=== PATIENT | male | born 1965 | race Caucasian/White ===

== ENCOUNTER 2016-05-31 19:33 | Inpatient (IN) | payer MEDICAID, OTHER ==
[~2016-05-31] VITALS: Ht 177.8 cm; Wt 93.0 kg
[~2016-05-31 19:33] MED LIST: RISP1 PO; TRAZ100T4 PO; VENL75XR PO
[2016-05-31 19:35] VITALS: BP 156/89; PULSE 95; RESP 18; TEMP 98.2; O2SAT 97
--- NOTE | 2016-05-31 19:37 | PD ---
Physical Exam Date Seen by Provider: May 31, 2016 Time Seen by Provider: 19:36 Data Data Last Documented VS Vital Signs Date Time Temp Pulse Resp B/P Pulse Ox O2 Delivery O2 Flow Rate FiO2 05/31/16 19:35 98.2 95 18 156/89 97 Room Air [facility] Medical Record Reviewed: Yes Supervised Visit with ROSSY: Yes Daryl Rm May 31, 2016 19:37 Supervised Visit with ROSSY: Yes Daryl Rm May 31, 2016 19:37
--- NOTE | 2016-05-31 20:24 | PD ---
Physical Exam Date Seen by Provider: May 31, 2016 Time Seen by Provider: 20:20 Narrative 51 YOWM C/O OFF PSYCH MEDS FOR 5 DAYS D/C FOR HOSP IN AUGUST NO SI OR HI. REQUESTING EVAL VSS AWAITING BED PLACEMENT Data Data Last Documented VS Vital Signs Date Time Temp Pulse Resp B/P Pulse Ox O2 Delivery O2 Flow Rate FiO2 05/31/16 19:35 98.2 95 18 156/89 97 Room Air [facility] Medical Record Reviewed: Yes Supervised Visit with ROSSY: Yes Daryl Rm May 31, 2016 20:24
[2016-05-31] MEDS ORDERED: VENL75XR PO (21:25)
[2016-05-31] MEDS ORDERED: TRAZ300T2 PO (21:25)
[2016-05-31] MEDS ORDERED: RISP2TAB37 (21:25)
--- NOTE | 2016-05-31 21:40 | PD ---
HPI Chief Complaint: Psychiatric Symptoms Time Seen by Provider: 21:28 Travel History International Travel<30 days: No Contact w/Intl Traveler<30days: No Traveled to known affect area: No History of Present Illness HPI The patient is a 51-year-old male who presents emergency department for psychiatric evaluation. The patient has a history of depression and anxiety , takes multiple medications including Effexor, Risperdal, and trazodone. The patient states he stopped taking his medications 5 days ago because he ran out of his medications and was unable to afford his medications at that time. The patient is followed at [facility] for psychiatric conditions. The patient does have a history of auditory hallucinations in the past, denies any current auditory or visual hallucinations. The patient denies any current suicidal or homicidal ideation. The patient is requesting psychiatric evaluation to see if he can be admitted for his psychiatric disorders and be placed on his medications. He denies alcohol or illicit drug use. PFSH Past Medical History Anxiety: Yes Depression: Yes Heart Rhythm Problems: No Cardiac Catheterization: No High Cholesterol: No Congestive Heart Failure: No Diminished Hearing: No Endocrine: No Genitourinary: No Hypertension: No Immune Disorder: No Musculoskeletal: No Neurologic: No Psychiatric: Yes Reproductive: No Respiratory: No Immunizations Current: Yes Myocardial Infarction: No Past Surgical History Narrative Surgical Tonsillectomy Abdominal Surgery: No Cardiac Surgery: No Coronary Artery Bypass Graft: No Ear Surgery: No Endocrine Surgery: No Eye Surgery: No Genitourinary Surgery: No Oral Surgery: No Tonsillectomy: Yes Social History Alcohol Use: No Tobacco Use: Yes (1 ppd) Substance Use: Yes (MJ) Allergies-Medications (Allergen,Severity, Reaction): Coded Allergies: No Known Allergies (Verified , 05/31/16) Reported Meds & Prescriptions Reported Meds & Active Scripts Active Effexor-Xr (Venlafaxine HCl) 75 Mg Caper 75 Mg PO DAILY 15 Days Desyrel 100 Mg Tab (Trazodone Hcl) 100 Mg Tab 400 Mg PO HS 15 Days Risperdal (Risperidone) 1 Mg Tab 2 Mg PO BID 15 Days Reported Trazodone (Trazodone HCl) 300 Mg Tab 400 Mg PO HS Risperdal (Risperidone) 2 Mg Tab 2 Mg PO Q12HR Effexor XR 24 HR (Venlafaxine HCl) 75 Mg Cap 150 Mg PO DAILY Review of Systems Except as stated in HPI: all other systems reviewed are Neg General / Constitutional: No: Fever HENT: No: Lightheadedness Cardiovascular: No: Chest Pain or Discomfort Respiratory: No: Shortness of Breath Gastrointestinal: No: Nausea, Vomiting, Abdominal Pain Musculoskeletal: No: Weakness Psychiatric: Positive: Anxiety, Depression, Disorder of Thought, No: Suicidal Ideations, Substance Abuse, Homicidal Ideation Physical Exam Narrative GENERAL: Awake, alert, pleasant 51-year-old male who appears his stated age and is in no acute respiratory distress. SKIN: Focused skin assessment warm/dry. HEAD: Atraumatic. Normocephalic. EYES: Pupils equal and round. 4 molars bilateral and reactive. EOMs are intact. ENT: No nasal bleeding or discharge. Mucous membranes pink and moist. NECK: Trachea midline. No JVD. CARDIOVASCULAR: Regular rate and rhythm. No murmur appreciated. RESPIRATORY: No accessory muscle use. Clear to auscultation. Breath sounds equal bilaterally. MUSCULOSKELETAL: No obvious deformities. No clubbing. No cyanosis. No edema. NEUROLOGICAL: Awake and alert. No obvious cranial nerve deficits. Motor grossly within normal limits. Normal speech. Alert and oriented 4. PSYCHIATRIC: Appears slightly anxious. Insight and judgment appear normal. Data Data Last Documented VS Vital Signs Date Time Temp Pulse Resp B/P Pulse Ox O2 Delivery O2 Flow Rate FiO2 05/31/16 21:56 79 14 146/91 96 Room Air 05/31/16 19:35 98.2 Orders Complete Blood Count With Diff (05/31/16 21:28) Comprehensive Metabolic Panel (05/31/16 21:28) Psych Screen (05/31/16 21:28) Drug Screen, Random Urine (05/31/16 21:28) Labs Laboratory Tests Test 05/31/16 05/31/16 21:50 22:06 Sodium Level 142 MEQ/L Potassium Level 3.9 MEQ/L Chloride Level 106 MEQ/L Carbon Dioxide Level 29.0 MEQ/L Anion Gap 7 MEQ/L Blood Urea Nitrogen 9 MG/DL Creatinine 1.05 MG/DL Estimat Glomerular Filtration 75 ML/MIN Rate Random Glucose 94 MG/DL Calcium Level 8.9 MG/DL Total Bilirubin 0.3 MG/DL Aspartate Amino Transf 20 U/L (AST/SGOT) Alanine Aminotransferase 55 U/L (ALT/SGPT) Alkaline Phosphatase 81 U/L Total Protein 6.9 GM/DL Albumin 3.9 GM/DL Urine Opiates Screen NEG Urine Barbiturates Screen NEG Urine Amphetamines Screen NEG Urine Benzodiazepines Screen POS Urine Cocaine Screen NEG Urine Cannabinoids Screen POS White Blood Count 9.6 TH/MM3 Red Blood Count 5.05 MIL/MM3 Hemoglobin 15.8 GM/DL Hematocrit 44.1 % Mean Corpuscular Volume 87.3 FL Mean Corpuscular Hemoglobin 31.2 PG Mean Corpuscular Hemoglobin 35.8 % Concent Red Cell Distribution Width 12.9 % Platelet Count 143 TH/MM3 Mean Platelet Volume 8.0 FL Neutrophils (%) (Auto) 59.9 % Lymphocytes (%) (Auto) 31.2 % Monocytes (%) (Auto) 6.9 % Eosinophils (%) (Auto) 1.5 % Basophils (%) (Auto) 0.5 % Neutrophils # (Auto) 5.7 TH/MM3 Lymphocytes # (Auto) 3.0 TH/MM3 Monocytes # (Auto) 0.7 TH/MM3 Eosinophils # (Auto) 0.1 TH/MM3 Basophils # (Auto) 0.1 TH/MM3 CBC Comment DIFF FINAL Differential Comment MDM Medical Decision Making Medical Screen Exam Complete: Yes Emergency Medical Condition: Yes Medical Record Reviewed: Yes Interpretation(s) Laboratory Tests Test 05/31/16 05/31/16 21:50 22:06 Sodium Level 142 MEQ/L Potassium Level 3.9 MEQ/L Chloride Level 106 MEQ/L Carbon Dioxide Level 29.0 MEQ/L Anion Gap 7 MEQ/L Blood Urea Nitrogen 9 MG/DL Creatinine 1.05 MG/DL Estimat Glomerular Filtration 75 ML/MIN Rate Random Glucose 94 MG/DL Calcium Level 8.9 MG/DL Total Bilirubin 0.3 MG/DL Aspartate Amino Transf 20 U/L (AST/SGOT) Alanine Aminotransferase 55 U/L (ALT/SGPT) Alkaline Phosphatase 81 U/L Total Protein 6.9 GM/DL Albumin 3.9 GM/DL Urine Opiates Screen NEG Urine Barbiturates Screen NEG Urine Amphetamines Screen NEG Urine Benzodiazepines Screen POS Urine Cocaine Screen NEG Urine Cannabinoids Screen POS White Blood Count 9.6 TH/MM3 Red Blood Count 5.05 MIL/MM3 Hemoglobin 15.8 GM/DL Hematocrit 44.1 % Mean Corpuscular Volume 87.3 FL Mean Corpuscular Hemoglobin 31.2 PG Mean Corpuscular Hemoglobin 35.8 % Concent Red Cell Distribution Width 12.9 % Platelet Count 143 TH/MM3 Mean Platelet Volume 8.0 FL Neutrophils (%) (Auto) 59.9 % Lymphocytes (%) (Auto) 31.2 % Monocytes (%) (Auto) 6.9 % Eosinophils (%) (Auto) 1.5 % Basophils (%) (Auto) 0.5 % Neutrophils # (Auto) 5.7 TH/MM3 Lymphocytes # (Auto) 3.0 TH/MM3 Monocytes # (Auto) 0.7 TH/MM3 Eosinophils # (Auto) 0.1 TH/MM3 Basophils # (Auto) 0.1 TH/MM3 CBC Comment DIFF FINAL Differential Comment Differential Diagnosis Differential diagnosis includes schizoaffective disorder, bipolar affective disorder, mood disorder, depression, anxiety, noncompliance. Narrative Course Labs were drawn and sent. Psychiatric evaluation was ordered. Labs are unremarkable. The patient is medically clear to be evaluated by psychiatry. Disposition as per psych. Diagnosis Primary Impression: Major depressive disorder Qualified Code: F33.9 - Recurrent major depressive disorder, remission status unspecified Condition: Stable Harrison Chapin MD May 31, 2016 21:40
[2016-05-31 21:56] VITALS: BP 146/91; PULSE 79; RESP 14; O2SAT 96
[2016-05-31 22:19] LABS: AMPHETAMINE, URINE NEG (NEG); BARBITURATES, URINE NEG (NEG); COCAINE, URINE NEG (NEG)
[2016-05-31 22:33] LABS: AUTOMATED NEUTROPHIL # 5.7 TH/MM3 (1.8-7.7); BASOPHIL # 0.1 TH/MM3 (0-0.2); BASOPHIL % 0.5 % (0.0-2.0); EOSINOPHIL # 0.1 TH/MM3 (0-0.4); EOSINOPHIL % 1.5 % (0.0-4.0); HEMATOCRIT 44.1 % (39.0-51.0); HEMO FLAGS DIFF FINAL; LYMPH % 31.2 % (9.0-44.0); MEAN CELL VOLUME 87.3 FL (80.0-100.0); MEAN CORPUSCULAR HEMOGLOBIN 31.2 PG (27.0-34.0); MEAN CORPUSCULAR HGB CONC 35.8 % (32.0-36.0); MONO % 6.9 % (0.0-8.0); NEUT % 59.9 % (16.0-70.0); PLATELET COUNT 143 TH/MM3 (150-450); RED BLOOD COUNT 5.05 MIL/MM3 (4.50-5.90); RED CELL DISTRIBUTION WIDTH 12.9 % (11.6-17.2); WHITE BLOOD COUNT 9.6 TH/MM3 (4.0-11.0)
[2016-05-31 22:38] LABS: ANION GAP 7 MEQ/L (5-15); AST (GOT) 20 U/L (15-37); BLOOD UREA NITROGEN 9 MG/DL (7-18); CHLORIDE 106 MEQ/L (98-107); GLOMERULAR FILTRATION RATE 75 ML/MIN (>89); POTASSIUM 3.9 MEQ/L (3.5-5.1); SODIUM (NA) 142 MEQ/L (136-145)
[2016-05-31 22:42] LABS: ALKALINE PHOSPHATASE 81 U/L (45-117); ALT (GPT) 55 U/L (12-78); TOTAL BILIRUBIN ADULT 0.3 MG/DL (0.2-1.0)
[2016-06-01 06:00] VITALS: BP 137/90; PULSE 73; RESP 17; O2SAT 95
[2016-06-01] MEDS ORDERED: ALUMINUM/MAGNESIUM/SIMETH 30 ML CUP PO PRN (11:15)
[2016-06-01] MEDS ORDERED: LORazepam 2 MG/ML VIAL IM PRN (11:15)
[2016-06-01] MEDS ORDERED: ACETAMINOPHEN 325 MG TAB PO PRN (11:15)
[2016-06-01] MEDS ORDERED: MAGNESIUM HYDROXIDE SUSP 30 ML CUP PO PRN (11:15)
--- NOTE | 2016-06-01 11:26 | HHI.HP ---
Provisional Diagnosis Admission Date [place] I. Schizophrenia, chronic paranoid type Certification of Person's Competence To Provide Express and Informed Consent I have personally examined Josh Caldera , a person being served at [facility] on, Jun 01, 2016 11:14. Express and informed consent means consent voluntarily given in writing, by a competent person, after sufficient explanation and disclosure of the subject matter involved to enable the person to make a knowing and willful decision without any element of force, fraud, deceit, duress, or other form of constraint or coercion. This person is 18 years of age or older, is not now known to be incompetent to consent to treatment with a guardian advocate, and does not have a health care surrogate or proxy currently making medical treatment decisions. I have found this person to be one of the following: [Yes] Competent to provide express and informed consent, as defined above, for voluntary admission to this facility and is competent to provide express and informed consent for treatment. He/she has the consistent capacity to make well reasoned, willful, and knowing decisions concerning his or her medical or mental health treatment. The person fully and consistently understands the purpose of the admission for examination/placement and is fully capable of personally exercising all rights [place] Incompetent to provide express and informed consent to voluntary admission, and this is incompetent to provide express and informed consent to treatment. The person must be transferred to involuntary status and a petition for a guardian advocate filed with the Circuit Court. [] Refusing to provide express and informed consent to voluntary admission but is competent to provide express and informed consent for treatment. The person must be discharged or transferred to involuntary status. Form shall be completed within 24 hours of a person's arrival at the receiving facility and filed in the clinical record of each person: 1. Admitted on a voluntary basis 2. Permitted to provide express and informed consent to his/her own treatment 3. Allowed to transfer from involuntary to voluntary status 4. Prior to permitting a person to consent to his or her own treatment after having been previously found incompetent to consent to treatment. History of Present Illness Capacity: Has Capacity HPI This is a 51-year-old male with a approximately 20 year history of schizophrenia , chronic paranoid type. He presents to the emergency Department voluntarily because he has hearing disturbing voices in his head and experiencing increasing paranoid delusions. This has been going on for the last 2 weeks. The patient attempted to go to [facility] but they were unable to see him. He describes voices in his head throughout the day which make up a running commentary of his activities and speak to him in a derogatory fashion. The voices also tell him "they" are coming to get him and that he will be in some fashion punished. He is aware of the these are hallucinations but he has unable to resist them any longer and he is afraid he will do something to harm himself. Additionally, he describes delusional thinking, that others can read his mind and these voices know precisely what is going on in his mind, including his thoughts, activities, etc. At this time the patient is depressed with suicidal ideation because of his ongoing psychosis. He has attempted to harm himself in the past and knows he can overdose on his medications, cut himself or walk into traffic. He states he has been compliant with his medications as prescribed by [facility]. However, he feels the medicines are not working adequately and he needs to be evaluated for medication adjustment and further treatment. As the patient has his own home which she pays for with Social Security disability income, and he does not consume alcohol or drugs, this physician feels the patient has not being manipulative. Review of Systems ROS Limitations: Clinical Condition Except as stated in HPI: all other systems reviewed are Neg Past Psych History Psychological trauma history Denies Violence risk - others (6 mos) Minimal Violence risk - self (6 mos) Moderate to severe. Substance Abuse History Drugs/Alcohol past 12 months Denies Past Family Social History Coded Allergies: No Known Allergies (Verified , 05/31/16) Reported Medications Trazodone 300 Mg [id number] Mg PO HS 05/31/16 Risperidone (Risperdal)2 Mg Tab2 Mg PO Q12HR 05/31/16 Venlafaxine ER 24 HR (Effexor XR 24 HR)75 Mg [id number] Mg PO DAILY 05/31/16 Discontinued Scripts Venlafaxine Hcl (Effexor-Xr)75 Mg Caper75 Mg PO DAILY 15 Days Ref 1 Prov:Shailesh England MD 09/15/15 Trazodone Hcl (Desyrel 100 Mg Tab)100 Mg [id number] Mg PO HS 15 Days Ref 1 Prov:Shailesh England MD 09/15/15 Risperidone (Risperdal)1 Mg Tab2 Mg PO BID 15 Days Ref 1 Prov:Shailesh England MD 09/15/15 Patient states he has been compliant with his Effexor, Risperdal and trazodone. However he is unable to sleep and medicines are not working adequately. Family History Positive for psychotic illness. Social History Patient is unemployed. He is not . He has very limited social support. He does not consume alcohol or drugs. He has no children. Patient's Strengths (min. 2) Verbal with good insight. Physical Exam GENERAL: SKIN: Warm and dry. HEAD: Normocephalic. EYES: No scleral icterus. No injection or drainage. NECK: Supple, trachea midline. No JVD or lymphadenopathy. CARDIOVASCULAR: Regular rate and rhythm without murmurs, gallops, or rubs. RESPIRATORY: Breath sounds equal bilaterally. No accessory muscle use. GASTROINTESTINAL: Abdomen soft, non-tender, nondistended. MUSCULOSKELETAL: No cyanosis, or edema. BACK: Nontender without obvious deformity. No CVA tenderness. Vital Signs Vital Signs Date Time Temp Pulse Resp B/P Pulse Ox O2 Delivery O2 Flow Rate FiO2 06/01/16 06:00 73 17 137/90 95 Room Air 05/31/16 19:35 98.2 Mental Status Examination Speech: Unremarkable Orientation: x3 Memory: Unremarkable Thought Process: Organized, Goal Directed Thought Content: Paranoid Hallucination Type: Auditory Attention and Concentration: Abnormal Suicidal Ideation: Yes Previous Suicide Attempts: Yes Homicidal Ideation: No Previous Homicide Attempts: No Insight: Fair Judgement: WNL Affect: Anxious, Sad Affect if Inappropriate: Blunt Mood: Sad Motor Activity: Normal gait Assessment & Plan Problem List: (1) Schizophrenia, paranoid, chronic with acute exacerbation ICD Code: F20.0 Assessment & Plan Estimated LOS: 7 days patient presents as acutely psychotic with auditory hallucinations and paranoid delusions. He has a significant risk for self-harm at this point due to the voices and delusional thinking being very bothersome to him and his medications not working. Additionally, the patient's inability to be seen at [facility] has obviously caused him frustration and left him feeling desperate and hopeless. He has ongoing suicidal ideation with plans to harm himself and this physician does not find him to be manipulative. He will be placed on his current medications for the time being but these will be reevaluated on the inpatient service. We will also obtain laboratory studies including vitamin D, vitamin B-12, and obtain thyroid studies and EKG. Patient is of an age where vitamin abnormalities were cardiac conditions may come into play regarding his cognition and ability to tolerate medicines at currently high doses. Clayton Nath MD Jun 01, 2016 11:26
[2016-06-01 14:00] VITALS: BP 123/86; PULSE 83; RESP 18; TEMP 98.2; O2SAT 95
[2016-06-01 18:12] VITALS: BP 146/87; PULSE 107; RESP 18; TEMP 98.5; O2SAT 96
[2016-06-01] MEDS: LORazepam 1 MG TAB PO PRN (21:01)
[2016-06-02 06:12] VITALS: BP 108/64; PULSE 73; RESP 17; TEMP 97.6; O2SAT 98
[2016-06-02 08:09] LABS: AUTOMATED NEUTROPHIL # 6.2 TH/MM3 (1.8-7.7); BASOPHIL # 0.1 TH/MM3 (0-0.2); BASOPHIL % 0.9 % (0.0-2.0); EOSINOPHIL # 0.1 TH/MM3 (0-0.4); EOSINOPHIL % 0.9 % (0.0-4.0); HEMATOCRIT 47.1 % (39.0-51.0); HEMO FLAGS DIFF FINAL; LYMPH % 26.4 % (9.0-44.0); LYMPHOCYTE # 2.6 TH/MM3 (1.0-4.8); MEAN CELL VOLUME 87.5 FL (80.0-100.0); MEAN CORPUSCULAR HEMOGLOBIN 31.1 PG (27.0-34.0); MEAN CORPUSCULAR HGB CONC 35.5 % (32.0-36.0); MONO % 8.3 % (0.0-8.0); NEUT % 63.5 % (16.0-70.0); PLATELET COUNT 138 TH/MM3 (150-450); RED BLOOD COUNT 5.38 MIL/MM3 (4.50-5.90); RED CELL DISTRIBUTION WIDTH 12.8 % (11.6-17.2); WHITE BLOOD COUNT 9.8 TH/MM3 (4.0-11.0)
[2016-06-02 08:39] LABS: ANION GAP 6 MEQ/L (5-15); AST (GOT) 16 U/L (15-37); BICARBONATE 27.8 MEQ/L (21.0-32.0); BLOOD UREA NITROGEN 13 MG/DL (7-18); CHLORIDE 106 MEQ/L (98-107); GLOMERULAR FILTRATION RATE 85 ML/MIN (>89); POTASSIUM 3.8 MEQ/L (3.5-5.1); SODIUM (NA) 140 MEQ/L (136-145)
[2016-06-02 09:07] LABS: ALKALINE PHOSPHATASE 76 U/L (45-117); ALT (GPT) 51 U/L (12-78); HDL CHOLESTEROL 23.7 MG/DL (40.0-60.0); LDL CHOLESTEROL 93 MG/DL (0-99); TOTAL BILIRUBIN ADULT 0.5 MG/DL (0.2-1.0)
--- NOTE | 2016-06-02 13:34 | HHI.PYPN ---
Subjective Remarks Continues to report auditory hallucinations which frighten him. He is afraid that he will as a result of his hallucinations. He is quite anxious and feels his medicine is not working. Apparently he has been getting sicker for the last 5 days. This physician recommends and will prescribe Abilify instead of Risperdal. Review of Systems ROS Limitations: Clinical Condition Except as stated in HPI: all other systems reviewed are Neg Objective Alert: Yes [place]: Person, Place, Date, Situation Mood: Calm Affect: Euthymic Memory Intact: Immediate, Recent, Remote Hallucinations: Auditory Delusions: Yes Delusion Type: Paranoid Suicidal: Ideation Homicidal: Ideation Insight/Judgement Impaired but patient willing to receive help. Labs Test 06/02/16 06:35 White Blood Count 9.8 TH/MM3 Red Blood Count 5.38 MIL/MM3 Hemoglobin 16.7 GM/DL Hematocrit 47.1 % Mean Corpuscular Volume 87.5 FL Mean Corpuscular Hemoglobin 31.1 PG Mean Corpuscular Hemoglobin 35.5 % Concent Red Cell Distribution Width 12.8 % Platelet Count 138 TH/MM3 Mean Platelet Volume 8.3 FL Neutrophils (%) (Auto) 63.5 % Lymphocytes (%) (Auto) 26.4 % Monocytes (%) (Auto) 8.3 % Eosinophils (%) (Auto) 0.9 % Basophils (%) (Auto) 0.9 % Neutrophils # (Auto) 6.2 TH/MM3 Lymphocytes # (Auto) 2.6 TH/MM3 Monocytes # (Auto) 0.8 TH/MM3 Eosinophils # (Auto) 0.1 TH/MM3 Basophils # (Auto) 0.1 TH/MM3 CBC Comment DIFF FINAL Differential Comment Sodium Level 140 MEQ/L Potassium Level 3.8 MEQ/L Chloride Level 106 MEQ/L Carbon Dioxide Level 27.8 MEQ/L Anion Gap 6 MEQ/L Blood Urea Nitrogen 13 MG/DL Creatinine 0.94 MG/DL Estimat Glomerular Filtration 85 ML/MIN Rate Random Glucose 85 MG/DL Calcium Level 8.8 MG/DL Total Bilirubin 0.5 MG/DL Aspartate Amino Transf 16 U/L (AST/SGOT) Alanine Aminotransferase 51 U/L (ALT/SGPT) Alkaline Phosphatase 76 U/L Total Protein 6.9 GM/DL Albumin 3.8 GM/DL Triglycerides Level 172 MG/DL Cholesterol Level 151 MG/DL LDL Cholesterol 93 MG/DL HDL Cholesterol 23.7 MG/DL Cholesterol/HDL Ratio 6.37 RATIO Vitamin B12 Level 281 PG/ML 25-Hydroxy Vitamin D Total 29.1 ng/ML Thyroid Stimulating Hormone 1.120 uIU/ML 3rd Gen Vitals/IOs Vital Signs Date Time Temp Pulse Resp B/P Pulse Ox O2 Delivery O2 Flow Rate FiO2 06/02/16 06:12 97.6 73 17 108/64 98 06/01/16 06:00 Room Air Intake and Output 06/01/16 06/01/16 06/02/16 08:00 16:00 00:00 Intake Total 360 ml Balance 360 ml Assessment & Plan Problem List: (1) Schizophrenia, paranoid, chronic with acute exacerbation ICD Code: F20.0 Assessment & Plan Estimated LOS: 5 days because the patient's Risperdal is not working and he would like to change in medication, this physician will try Abilify 5 mg by mouth daily at bedtime. If this medicine is well tolerated, the patient may be a candidate for long-acting Abilify injectables. In the meantime, he will be continued on his current doses of Effexor and trazodone. Justification for Cont. Inpt. Psychotic, delusional and unable to care for himself. Patient is afraid of dying and experiences frequent auditory hallucinations of a command nature. Clayton Nath MD Jun 02, 2016 13:34
[2016-06-02] MEDS: VENLAFAXINE HCL XR 75 MG CAP PO SCH (17:30)
[2016-06-02] MEDS: LORazepam 1 MG TAB PO PRN (17:30)
[2016-06-02 19:18] VITALS: BP 146/83; PULSE 73; RESP 17; TEMP 98.1; O2SAT 95
[2016-06-02] MEDS: traZODone HCL 100 MG TAB PO SCH (21:27)
[2016-06-03 06:06] VITALS: BP 137/75; PULSE 71; RESP 18; TEMP 97.5; O2SAT 96
[2016-06-03] MEDS: VENLAFAXINE HCL XR 75 MG CAP PO SCH (08:24)
--- NOTE | 2016-06-03 13:48 | HHI.PYPN ---
Subjective Remarks Continues to be paranoid, reclusive, depressed with suicidal thinking. Review of Systems ROS Limitations: Clinical Condition Objective Alert: Yes [place]: Person, Place, Date, Situation Mood: Anxious Affect: Euthymic Memory Intact: Immediate, Recent, Remote Hallucinations: Auditory Delusions: Yes Delusion Type: Paranoid Suicidal: Ideation Homicidal: Ideation Insight/Judgment Impaired. Vitals/IOs Vital Signs Date Time Temp Pulse Resp B/P Pulse Ox O2 Delivery O2 Flow Rate FiO2 06/03/16 06:06 97.5 71 18 137/75 96 06/01/16 06:00 Room Air Assessment & Plan Problem List: (1) Schizophrenia, paranoid, chronic with acute exacerbation ICD Code: F20.0 Assessment & Plan Estimated LOS: 5 days patient continues to require Abilify and may require a higher dose. This physician is planning to utilize long-acting injectable Abilify. Justification for Cont. Inpt. Paranoid psychosis and suicidal. Clayton Nath MD Jun 03, 2016 13:48
[2016-06-03 19:00] VITALS: BP 122/76; PULSE 80; RESP 18; TEMP 97.4; O2SAT 96
[2016-06-03] MEDS: LORazepam 1 MG TAB PO PRN (19:42)
[2016-06-03] MEDS ORDERED: ARIPiprazole 5 MG TAB PO SCH (21:00)
[2016-06-03] MEDS: traZODone HCL 100 MG TAB PO SCH (21:10)
[2016-06-04 05:41] VITALS: BP 104/63; PULSE 62; RESP 18; TEMP 99.2; O2SAT 96
[2016-06-04] MEDS: VENLAFAXINE HCL XR 75 MG CAP PO SCH (09:00)
--- NOTE | 2016-06-04 15:52 | HHI.PYPN ---
Subjective Remarks Patient was seen and case discussed with nursing. Patient is disheveled. Describes continued bizarre delusions believing that there is a man controlling the computer was able to read his thoughts and see through his eyes. Says he fears for his life because of the situation. Says the auditory hallucinations have resolved. Objective Alert: Yes [place]: Person, Place, Date, Situation Mood: Anxious Affect: Blunted Memory Intact: Immediate, Recent, Remote Hallucinations: Auditory (denies today) Delusions: Yes Delusion Type: Paranoid (various bizarre delusions) Suicidal: Ideation (denies) Homicidal: Ideation (denies) Insight/Judgment Poor Vitals/IOs Vital Signs Date Time Temp Pulse Resp B/P Pulse Ox O2 Delivery O2 Flow Rate FiO2 06/04/16 05:41 99.2 62 18 104/63 96 06/01/16 06:00 Room Air Intake and Output 06/03/16 06/03/16 06/04/16 08:00 16:00 00:00 Intake Total 0 ml 240 ml Balance 0 ml 240 ml Assessment & Plan Problem List: (1) Schizophrenia, paranoid, chronic with acute exacerbation ICD Code: F20.0 Assessment & Plan Patient is on a low-dose of Abilify. We will increase it tonight and continue titration Justification for Cont. Inpt. Patient will decompensate in a less restrictive setting Rolf Jones DO Jun 04, 2016 15:52
[2016-06-04 19:22] VITALS: BP 154/86; PULSE 107; RESP 20; TEMP 98.4; O2SAT 97
[2016-06-04] MEDS: traZODone HCL 100 MG TAB PO SCH (21:31)
[2016-06-04] MEDS: ARIPiprazole 10 MG TAB PO SCH (21:32)
[2016-06-05 06:12] VITALS: BP 112/68; PULSE 72; RESP 17; TEMP 98.1; O2SAT 96
[2016-06-05] MEDS: ARIPiprazole 5 MG TAB PO SCH (09:16)
[2016-06-05] MEDS: VENLAFAXINE HCL XR 75 MG CAP PO SCH (09:16)
[2016-06-05] MEDS: LORazepam 1 MG TAB PO PRN (17:56)
--- NOTE | 2016-06-05 18:02 | HHI.PYPN ---
Subjective Remarks Patient is tolerating the increased Abilify dose well. He remains suspicious and paranoid. Continues to think that a person is controlling him to a computer. Says that voices are telling him that they're going to kill him and he is fearful as a result. Denies suicidal ideation intent or plan Objective Alert: Yes [place]: Person, Place, Date, Situation Mood: Anxious Affect: Flat Memory Intact: Comment (not tested today) Hallucinations: Auditory (that they are going to harm him) Delusions: Yes Delusion Type: Paranoid (various bizarre delusions) Suicidal: Ideation (denies) Homicidal: Ideation (denies) Insight/Judgment Poor Vitals/IOs Vital Signs Date Time Temp Pulse Resp B/P Pulse Ox O2 Delivery O2 Flow Rate FiO2 06/05/16 06:12 98.1 72 17 112/68 96 Assessment & Plan Problem List: (1) Schizophrenia, paranoid, chronic with acute exacerbation ICD Code: F20.0 Assessment & Plan Continue current treatment plan, continue Abilify titration next week Justification for Cont. Inpt. Patient will decompensate in a less restrictive setting Rolf Jones DO Jun 05, 2016 18:02
[2016-06-05 19:46] VITALS: BP 144/85; PULSE 86; TEMP 98.7; O2SAT 94
[2016-06-05] MEDS: traZODone HCL 100 MG TAB PO SCH (21:03)
[2016-06-05] MEDS: ARIPiprazole 10 MG TAB PO SCH (21:03)
[2016-06-06 06:09] VITALS: BP 109/66; PULSE 72; RESP 18; TEMP 98.5; O2SAT 97
[2016-06-06] MEDS: ARIPiprazole 5 MG TAB PO SCH (08:30)
[2016-06-06] MEDS: VENLAFAXINE HCL XR 75 MG CAP PO SCH (08:30)
--- NOTE | 2016-06-06 12:38 | HHI.PYPN ---
Subjective Remarks Continues to report auditory hallucinations which are of a command nature, telling him to hurt himself. They are intermittent but the severity is sufficient to cause the patient much distress. They occur intermittently throughout the day. Review of Systems ROS Limitations: Clinical Condition Except as stated in HPI: all other systems reviewed are Neg Objective Alert: Yes [place]: Person, Place, Date, Situation Mood: Anxious Affect: Flat Memory Intact: Comment (not tested today) Hallucinations: Auditory (that they are going to harm him) Delusions: Yes Delusion Type: Paranoid (various bizarre delusions) Suicidal: Ideation (denies) Homicidal: Ideation (denies) Insight/Judgment Significantly impaired Vitals/IOs Vital Signs Date Time Temp Pulse Resp B/P Pulse Ox O2 Delivery O2 Flow Rate FiO2 06/06/16 06:09 98.5 72 18 109/66 97 Assessment & Plan Problem List: (1) Schizophrenia, paranoid, chronic with acute exacerbation ICD Code: F20.0 Assessment & Plan Estimated LOS: 5 days will continue to titrate dose of Abilify and hopefully add Abilify Maintena. Justification for Cont. Inpt. Command auditory hallucinations telling him to kill himself. Clayton Nath MD Jun 06, 2016 12:38
[2016-06-06] MEDS: LORazepam 1 MG TAB PO PRN (16:03)
[2016-06-06 18:13] VITALS: BP 145/84; PULSE 97; RESP 16; TEMP 97.5; O2SAT 96
[2016-06-06] MEDS: traZODone HCL 100 MG TAB PO SCH (20:14)
[2016-06-06] MEDS ORDERED: ARIPiprazole 5 MG TAB PO SCH (21:00)
[2016-06-07 05:16] VITALS: BP 127/73; PULSE 80; RESP 18; TEMP 98; O2SAT 99
[2016-06-07] MEDS: VENLAFAXINE HCL XR 75 MG CAP PO SCH (09:00)
[2016-06-07] MEDS: ARIPiprazole 5 MG TAB PO SCH (10:08)
--- NOTE | 2016-06-07 11:11 | HHI.DS ---
Psychiatry Discharge Summary Inpatient Psychiatric care?: Yes Advance Directive: No Reason Not Provided: pt not interested Mental Health AdvanceDirective: No Health Care Proxy: No Admission Admission Date Jun 01, 2016 at 11:12 Admission Diagnosis: (1) Schizophrenia, paranoid, chronic with acute exacerbation ICD Code: F20.0 Brief History This is a 51-year-old male with a approximately 20 year history of schizophrenia , chronic paranoid type. He presents to the emergency Department voluntarily because he has hearing disturbing voices in his head and experiencing increasing paranoid delusions. This has been going on for the last 2 weeks. The patient attempted to go to [facility] walk-in clinic but they were unable to see him. He describes voices in his head throughout the day which make up a running commentary of his activities and speak to him in a derogatory fashion. The voices also tell him "they" are coming to get him and that he will be in some fashion punished. He is aware of the these are hallucinations but he has unable to resist them any longer and he is afraid he will do something to harm himself. Additionally, he describes delusional thinking, that others can read his mind and these voices know precisely what is going on in his mind, including his thoughts, activities, etc. At this time the patient is depressed with suicidal ideation because of his ongoing psychosis. He has attempted to harm himself in the past and knows he can overdose on his medications, cut himself or walk into traffic. He states he has been compliant with his medications as prescribed by [facility]. However, he feels the medicines are not working adequately and he needs to be evaluated for medication adjustment and further treatment. As the patient has his own home which she pays for with Social Security disability income, and he does not consume alcohol or drugs, this physician feels the patient has not being manipulative. Tobacco Use In Past 30 Days: 5 or More Cigarettes/Day Alcohol Use: Never Hospital Course Patient's medications were changed to Abilify during this hospital course. He tolerated this medicine well and it appeared to improve his thinking and his mood. No procedures were performed. He did participate in individual as well as group therapies. At the time of discharge it was felt he had reached maximum improvement from this hospital stay. Results Blood Pressure 127 / 73 Vital Signs Date Time Temp Pulse Resp B/P Pulse Ox O2 Delivery O2 Flow Rate FiO2 06/07/16 05:16 98.0 80 18 127/73 99 None pending Summary of Procedures None Pending results at discharge: No Medications # of Antipsychotic meds at D/C: 1 Appropriate >1 Antipsych meds?: 1 Approp Antipsych med options 1 - Minimum of three failed multiple trials of monotherapy. 2 - Documented plan to taper to monotherapy due to previous use of multiple meds OR cross-taper in progress at D/C. 3 - Documentation of augmentation of Clozapine. 4 - Justification other than those listed in allowable values 1-3, document here : Discharge Discharge Date: Jun 07, 2016 Discharge Diagnosis: (1) Schizophrenia, paranoid, chronic with acute exacerbation Diagnosis: Principal ICD Code: F20.0 Mental Status Exam at Disch At the time of discharge the patient was verbally quirino for safety and demonstrated no suicidal or homicidal ideation, plan or intention. Although he remained somewhat paranoid in his believe system, these were not hard and fixed delusions. His cognition was intact and felt to be baseline. He was willing to seek follow up care at [facility]. Pt Condition on Discharge: Stable Discharge Disposition: Discharge Home Discharge Instructions Diet Instructions: As Tolerated, No Restrictions Activities you can perform: Regular-No Restrictions Scheduled Appointment: [facility] Appointment Date: Jun 10, 2016 Appointment Time: 7:30am Discharge Time <= 30 minutes Discharge/Advance Care Plan Health Problems: (1) Schizophrenia, paranoid, chronic with acute exacerbation Goals to promote your health * To prevent worsening of your condition and complications * To maintain your health at the optimal level Directions to meet your goals Take your medications as prescribed Follow your dietary instruction Follow activity as directed Keep your appointments as scheduled Take your immunizations and boosters as scheduled If your symptoms worsen call your PCP, if no PCP go to Urgent Care Center or Emergency Room For 19/09 questions related to your inpatient stay or results of tests pending at discharge, please contact Dr. Clayton Nath at Smoking is Dangerous to Your Health. Avoid second hand smoking Clayton Nath MD Jun 07, 2016 11:11
[2016-06-07] MEDS ORDERED: ARIP1TAB11 PO (11:13)
[2016-06-07] MEDS ORDERED: TRAZ50TA12 PO (11:13)
[2016-06-07] MEDS ORDERED: VENL75XR PO (11:13)
[2016-08-03] MEDS ORDERED: CLON1 PO (10:04)
== END 2016-06-07 14:15 | disposition home or self-care (01) | DRG 885 ==
LOC: NEPA 19:33 → NEDA 06-01 11:12 → H260 06-01 14:00
PROVIDERS: ADMIT Psychiatry & Neurology Psychiatry; ATTEND Psychiatry & Neurology Psychiatry
DX: F20.0 Paranoid schizophrenia (principal); F33.9 Major depressive disorder, recurrent, unspecified; R45.851 Suicidal ideations; F41.9 Anxiety disorder, unspecified; F17.210 Nicotine dependence, cigarettes, uncomplicated; F12.90 Cannabis use, unspecified, uncomplicated
CPT/HCPCS: 80053; 80061; 80307; 82306; 82607; 84443; 85025; 99284

== ENCOUNTER 2016-06-10 17:31 | Inpatient (IN) | payer OTHER ==
[~2016-06-10] VITALS: Ht 177.8 cm; Wt 92.1 kg
[~2016-06-10 17:31] MED LIST changes: +ARIP1TAB11 PO; -RISP1 PO; +RISP2TAB37; -TRAZ100T4 PO; +TRAZ300T2 PO; +TRAZ50TA12 PO
[2016-06-10 17:43] VITALS: BP 147/104; PULSE 99; RESP 16; TEMP 98.1; O2SAT 98
[2016-06-10 17:48] LABS: MEAN CORPUSCULAR HGB CONC 36.1 % (32.0-36.0)
[2016-06-10 18:05] LABS: AUTOMATED NEUTROPHIL # 8.2 TH/MM3 (1.8-7.7); BASOPHIL # 0.1 TH/MM3 (0-0.2); BASOPHIL % 0.6 % (0.0-2.0); EOSINOPHIL # 0.1 TH/MM3 (0-0.4); EOSINOPHIL % 0.7 % (0.0-4.0); HEMATOCRIT 47.1 % (39.0-51.0); LYMPH % 22.7 % (9.0-44.0); LYMPHOCYTE # 2.7 TH/MM3 (1.0-4.8); MEAN CELL VOLUME 86.7 FL (80.0-100.0); MEAN CORPUSCULAR HEMOGLOBIN 31.3 PG (27.0-34.0); MONO % 7.6 % (0.0-8.0); NEUT % 68.4 % (16.0-70.0); PLATELET COUNT 153 TH/MM3 (150-450); RED BLOOD COUNT 5.43 MIL/MM3 (4.50-5.90); RED CELL DISTRIBUTION WIDTH 12.9 % (11.6-17.2); WHITE BLOOD COUNT 11.9 TH/MM3 (4.0-11.0)
[2016-06-10 18:06] LABS: HEMO FLAGS AUTO DIFF
[2016-06-10 18:16] LABS: AMPHETAMINE, URINE NEG (NEG); BARBITURATES, URINE NEG (NEG); COCAINE, URINE NEG (NEG)
--- NOTE | 2016-06-10 18:23 | PD ---
HPI Chief Complaint: Psychiatric Symptoms Time Seen by Provider: 17:46 Travel History International Travel<30 days: No Contact w/Intl Traveler<30days: No Traveled to known affect area: No History of Present Illness HPI The patient is a 51-year-old male who presents to the emergency department as a García act. According to the police affidavit the patient called dispatch and stated he was hearing voices and thought people are out to kill him. The patient does state he has a history of schizophrenia, recently had his medications changed from Risperdal to Abilify. The patient also takes trazodone and Effexor. The patient does have a history of schizophrenia, currently serum voices that state they're going to slit his throat, and he believes that if he leaves the emergency department he will . He denies any actual suicidal or homicidal ideation. He denies any visual hallucinations. The patient denies any chest pain, shortness of breath, nausea, vomiting, diarrhea, or abdominal pain. The patient does smoke cigarettes. The patient states his psychiatrist is at [facility]. [facility] Past Medical History Anxiety: Yes Depression: Yes Heart Rhythm Problems: No Cardiac Catheterization: No High Cholesterol: No Congestive Heart Failure: No Diminished Hearing: No Endocrine: No Genitourinary: No Hypertension: No Immune Disorder: No Musculoskeletal: No Neurologic: No Psychiatric: Yes (Yes- schizophrenia) Reproductive: No Respiratory: No Immunizations Current: Yes Myocardial Infarction: No Tetanus Vaccination: Unknown Influenza Vaccination: No ?: Not Past Surgical History Abdominal Surgery: No Cardiac Surgery: No Coronary Artery Bypass Graft: No Ear Surgery: No Endocrine Surgery: No Eye Surgery: No Genitourinary Surgery: No Oral Surgery: No Tonsillectomy: Yes Social History Alcohol Use: No Tobacco Use: Yes Substance Use: No Allergies-Medications (Allergen,Severity, Reaction): Coded Allergies: No Known Allergies (Verified , 05/31/16) Reported Meds & Prescriptions Reported Meds & Active Scripts Active Effexor XR 24 HR (Venlafaxine HCl) 75 Mg Cap 150 Mg PO DAILY Trazodone (Trazodone HCl) 50 Mg Tab 400 Mg PO HS Aripiprazole 5 Mg Tab 15 Mg PO HS Reported Trazodone (Trazodone HCl) 300 Mg Tab 400 Mg PO HS Risperdal (Risperidone) 2 Mg Tab 3 Mg .ROUTE Q12HR Effexor XR 24 HR (Venlafaxine HCl) 75 Mg Cap 150 Mg PO DAILY Review of Systems Except as stated in HPI: all other systems reviewed are Neg Cardiovascular: No: Chest Pain or Discomfort Respiratory: No: Shortness of Breath Gastrointestinal: No: Nausea, Vomiting, Abdominal Pain Genitourinary: No: Dysuria Neurologic: No: Change in Mentation Psychiatric: Positive: Disorder of Thought, No: Substance Abuse Physical Exam Narrative GENERAL: Awake, alert, nontoxic-appearing 51-year-old male who appears his stated age and is in no acute respiratory distress. SKIN: Focused skin assessment warm/dry. HEAD: Atraumatic. Normocephalic. EYES: Pupils equal and round. No scleral icterus. No injection or drainage. ENT: No nasal bleeding or discharge. Mucous membranes pink and moist. NECK: Trachea midline. No JVD. CARDIOVASCULAR: Regular rate and rhythm. No murmur appreciated. RESPIRATORY: No accessory muscle use. Clear to auscultation. Breath sounds equal bilaterally. GASTROINTESTINAL: Abdomen soft, non-tender, nondistended. No rebound tenderness. MUSCULOSKELETAL: No obvious deformities. No clubbing. No cyanosis. No edema. NEUROLOGICAL: Awake and alert. No obvious cranial nerve deficits. Motor grossly within normal limits. Normal speech. Nonfocal. Oriented 4. Follows commands without difficulty. PSYCHIATRIC: Appropriate mood and affect; insight and judgment normal. Data Data Last Documented VS Vital Signs Date Time Temp Pulse Resp B/P Pulse Ox O2 Delivery O2 Flow Rate FiO2 06/10/16 19:34 80 20 160/90 98 Room Air 06/10/16 17:43 98.1 Orders Complete Blood Count With Diff (06/10/16 17:46) Comprehensive Metabolic Panel (06/10/16 17:46) Psych Screen (06/10/16 17:46) Drug Screen, Random Urine (06/10/16 17:46) Alcohol (Ethanol) (06/10/16 17:46) Admit Order (Ed Use Only) (06/10/16 21:17) Vital Signs (Adult) MORRO.Q12H.E (06/10/16 21:17) Activity Oob Ad Olga (06/10/16 21:17) Level Of Observation (Psych) (06/10/16 21:17) Diet Regular Basic (06/11/16 Breakfast) Basic Metabolic Panel (Bmp) (06/11/16 06:00) Lipid Profile (06/11/16 06:00) Hemoglobin (Hgb) A1c (06/11/16 06:00) Labs Laboratory Tests Test 06/10/16 17:55 White Blood Count 11.9 TH/MM3 Red Blood Count 5.43 MIL/MM3 Hemoglobin 17.0 GM/DL Hematocrit 47.1 % Mean Corpuscular Volume 86.7 FL Mean Corpuscular Hemoglobin 31.3 PG Mean Corpuscular Hemoglobin 36.1 % Concent Red Cell Distribution Width 12.9 % Platelet Count 153 TH/MM3 Mean Platelet Volume 8.2 FL Neutrophils (%) (Auto) 68.4 % Lymphocytes (%) (Auto) 22.7 % Monocytes (%) (Auto) 7.6 % Eosinophils (%) (Auto) 0.7 % Basophils (%) (Auto) 0.6 % Neutrophils # (Auto) 8.2 TH/MM3 Lymphocytes # (Auto) 2.7 TH/MM3 Monocytes # (Auto) 0.9 TH/MM3 Eosinophils # (Auto) 0.1 TH/MM3 Basophils # (Auto) 0.1 TH/MM3 CBC Comment AUTO DIFF Differential Comment AUTO DIFF CONFIRMED Platelet Estimate NORMAL Platelet Morphology Comment NORMAL Red Cell Morphology Comment NORMAL Sodium Level 137 MEQ/L Potassium Level 3.9 MEQ/L Chloride Level 104 MEQ/L Carbon Dioxide Level 23.9 MEQ/L Anion Gap 9 MEQ/L Blood Urea Nitrogen 10 MG/DL Creatinine 1.06 MG/DL Estimat Glomerular Filtration 74 ML/MIN Rate Random Glucose 107 MG/DL Calcium Level 9.0 MG/DL Total Bilirubin 0.4 MG/DL Aspartate Amino Transf 14 U/L (AST/SGOT) Alanine Aminotransferase 59 U/L (ALT/SGPT) Alkaline Phosphatase 85 U/L Total Protein 7.3 GM/DL Albumin 4.1 GM/DL Urine Opiates Screen NEG Urine Barbiturates Screen NEG Urine Amphetamines Screen NEG Urine Benzodiazepines Screen NEG Urine Cocaine Screen NEG Urine Cannabinoids Screen POS Ethyl Alcohol Level LESS THAN 3 MG/DL MDM Medical Decision Making Medical Screen Exam Complete: Yes Emergency Medical Condition: Yes Medical Record Reviewed: Yes Interpretation(s) Laboratory Tests Test 06/10/16 17:55 White Blood Count 11.9 TH/MM3 Red Blood Count 5.43 MIL/MM3 Hemoglobin 17.0 GM/DL Hematocrit 47.1 % Mean Corpuscular Volume 86.7 FL Mean Corpuscular Hemoglobin 31.3 PG Mean Corpuscular Hemoglobin 36.1 % Concent Red Cell Distribution Width 12.9 % Platelet Count 153 TH/MM3 Mean Platelet Volume 8.2 FL Neutrophils (%) (Auto) 68.4 % Lymphocytes (%) (Auto) 22.7 % Monocytes (%) (Auto) 7.6 % Eosinophils (%) (Auto) 0.7 % Basophils (%) (Auto) 0.6 % Neutrophils # (Auto) 8.2 TH/MM3 Lymphocytes # (Auto) 2.7 TH/MM3 Monocytes # (Auto) 0.9 TH/MM3 Eosinophils # (Auto) 0.1 TH/MM3 Basophils # (Auto) 0.1 TH/MM3 CBC Comment AUTO DIFF Differential Comment AUTO DIFF CONFIRMED Platelet Estimate NORMAL Platelet Morphology Comment NORMAL Red Cell Morphology Comment NORMAL Sodium Level 137 MEQ/L Potassium Level 3.9 MEQ/L Chloride Level 104 MEQ/L Carbon Dioxide Level 23.9 MEQ/L Anion Gap 9 MEQ/L Blood Urea Nitrogen 10 MG/DL Creatinine 1.06 MG/DL Estimat Glomerular Filtration 74 ML/MIN Rate Random Glucose 107 MG/DL Calcium Level 9.0 MG/DL Total Bilirubin 0.4 MG/DL Aspartate Amino Transf 14 U/L (AST/SGOT) Alanine Aminotransferase 59 U/L (ALT/SGPT) Alkaline Phosphatase 85 U/L Total Protein 7.3 GM/DL Albumin 4.1 GM/DL Urine Opiates Screen NEG Urine Barbiturates Screen NEG Urine Amphetamines Screen NEG Urine Benzodiazepines Screen NEG Urine Cocaine Screen NEG Urine Cannabinoids Screen POS Ethyl Alcohol Level LESS THAN 3 MG/DL Differential Diagnosis Differential diagnoses includes schizophrenia, psychosis, mood disorder NOS, bipolar affective disorder. Narrative Course Labs were drawn and sent. Psychiatric evaluation was ordered. Labs were noted , mildly elevated white count, however, patient is afebrile. Patient is medically cleared to be evaluated by psychiatry. Disposition is per psychiatry. Diagnosis Primary Impression: Schizophrenia, paranoid, chronic with acute exacerbation Admitting Information Admitting Physician Requests: Admit Condition: Stable Harrison Chapin MD Jun 10, 2016 18:23
[2016-06-10 18:29] LABS: ALT (GPT) 59 U/L (12-78); ANION GAP 9 MEQ/L (5-15); AST (GOT) 14 U/L (15-37); BICARBONATE 23.9 MEQ/L (21.0-32.0); BLOOD UREA NITROGEN 10 MG/DL (7-18); CHLORIDE 104 MEQ/L (98-107); GLOMERULAR FILTRATION RATE 74 ML/MIN (>89); POTASSIUM 3.9 MEQ/L (3.5-5.1); SODIUM (NA) 137 MEQ/L (136-145)
[2016-06-10 18:32] LABS: ALKALINE PHOSPHATASE 85 U/L (45-117); TOTAL BILIRUBIN ADULT 0.4 MG/DL (0.2-1.0)
[2016-06-10 19:02] LABS: PLATELET ESTIMATE SMEAR NORMAL (NORMAL); PLATELET MORPHOLOGY NORMAL (NORMAL)
[2016-06-10 19:03] LABS: SCAN/DIFF AUTO DIFF CONFIRMED
[2016-06-10 19:20] VITALS: BP 151/91
[2016-06-10 19:34] VITALS: BP 160/90; PULSE 80; RESP 20; O2SAT 98
[2016-06-10 22:26] VITALS: BP 135/79; PULSE 84; RESP 18; O2SAT 97
[2016-06-10] MEDS ORDERED: ACETAMINOPHEN 325 MG TAB PO PRN (23:45)
[2016-06-10] MEDS ORDERED: ALUMINUM/MAGNESIUM/SIMETH 30 ML CUP PO PRN (23:45)
[2016-06-10] MEDS ORDERED: LORazepam 2 MG/ML VIAL IM PRN (23:45)
[2016-06-10] MEDS ORDERED: MAGNESIUM HYDROXIDE SUSP 30 ML CUP PO PRN (23:45)
[2016-06-11 00:19] VITALS: BP 148/94; PULSE 92; RESP 18; TEMP 98.6; O2SAT 98
[2016-06-11 05:57] VITALS: BP 136/88; PULSE 17; RESP 17; TEMP 98.2; O2SAT 98
[2016-06-11] MEDS: risperiDONE 3 MG TAB PO SCH ×2 (09:01→21:47)
[2016-06-11] MEDS: VENLAFAXINE HCL XR 75 MG CAP PO SCH (09:01)
[2016-06-11] MEDS: NICOTINE 21 MG/24 HR PATCH T-DERMAL SCH (09:03)
[2016-06-11 09:36] LABS: ANION GAP 7 MEQ/L (5-15); BICARBONATE 27.7 MEQ/L (21.0-32.0); BLOOD UREA NITROGEN 10 MG/DL (7-18); CHLORIDE 104 MEQ/L (98-107); GLOMERULAR FILTRATION RATE 73 ML/MIN (>89); HDL CHOLESTEROL 23.4 MG/DL (40.0-60.0); LDL CHOLESTEROL 70 MG/DL (0-99); POTASSIUM 3.7 MEQ/L (3.5-5.1); SODIUM (NA) 139 MEQ/L (136-145)
[2016-06-11 11:04] LABS: HEMOGLOBIN A1a 0.8 %; HEMOGLOBIN A1b 1.7 %; HEMOGLOBIN Ao 86.2 %; HEMOGLOBIN P3 3.6 %
--- NOTE | 2016-06-11 14:10 | PD.CONS ---
Provisional Diagnosis Admission Date Jun 10, 2016 at 21:[address] [place] [address] I. Schizophrenia, paranoid type [place] II. Deferred [place] III. No medical diagnosis [place] IV. Lack of family and social support [place] V. 40 History of Present Illness Service Psychiatry Consult Requested By Primary Care Physician No Primary Care Physician HPI The patient is a 51-year-old man, domiciled alone in [place], single, unemployed, supported by [facility], with a History of schizophrenia, 2 previous psychiatric hospitalizations, the last hospitalization was here at [facility] under the care of Dr. Nath, he was just discharged 3 days ago, he has no previous suicidal attempts, he sees in outpatient to the nurse practitioner Nadja Dela Cruz, he is on Abilify 15 mg, Risperdal 3 mg twice a day, Effexor 150 mg, trazodone 400 mg at bedtime, no significant medical history, who was brought to the ER by police because patient approached to them requesting to be García act due to paranoia and command in type auditory hallucinations. On psychiatric evaluation in the unit patient is calm, cooperative, he is found in his room sleeping, but easily arousable. Patient explains that since he was discharged from the hospital, he has been trying to ignore his voices and the paranoia of being followed "by people that want to kill". He says that he has an obsessive Thought of people the will come when he is not aware and will cut his neck. He says that at moments he becomes extremely afraid and is difficult for him to convince his brain that this is not true, but most of the time he have a good insight. He also reports hearing voices telling him to kill himself. He denies suicidal and homicidal ideation, he reports good mood, denies anxiety, denies tremors, denies EPS, nausea. Patient denies the use of drugs and alcohol. He smokes about 1-1/2 package of cigarettes per day. Review of Systems Constitutional: DENIES: Diaphoretic episodes, Fatigue, Fever, Weight gain, Weight loss, Chills, Dizziness, Change in appetite, Night Sweats Endocrine: DENIES: Heat/cold intolerance, Polydipsia, Polyuria, Polyphagia Eyes: DENIES: Blurred vision, Diplopia, Eye inflammation, Eye pain, Vision loss , Photosensitivity, Double Vision Ears, nose, mouth, throat: DENIES: Tinnitus, Hearing loss, Vertigo, Nasal discharge, Oral lesions, Throat pain, Hoarseness, Ear Pain, Running Nose, Epistaxis, Sinus Pain, Toothache, Odynophagia Cardiovascular: DENIES: Chest pain, Palpitations, Syncope, Dyspnea on Exertion , PND, Lower Extremity Edema, Orthopnea, Claudication Genitourinary: DENIES: Sexual dysfunction, Urinary frequency, Urinary incontinence, Urgency, Hematuria, Dysuria, Nocturia, Penile Discharge, Testicular Pain, Testicular Swelling Musculoskeletal: DENIES: Joint pain, Muscle aches, Stiffness, Joint Swelling, Back pain, Neck pain Integumentary: DENIES: Abnormal pigmentation, Nail changes, Pruritus, Rash Hematologic/lymphatic: DENIES: Bruising, Lymphadenopathy Immunologic/allergic: DENIES: Eczema, Urticaria Neurologic: DENIES: Abnormal gait, Headache, Localized weakness, Paresthesias, Seizures, Speech Problems, Tremor, Poor Balance Psychiatric: COMPLAINS OF: Hallucinations, Delusions, DENIES: Anxiety, Confusion, Mood changes, Depression, Agitation, Suicidal Ideation, Homicidal Ideation Past Family Social History Coded Allergies: No Known Allergies (Verified , 05/31/16) Active Scripts Venlafaxine ER 24 HR (Effexor XR 24 HR)75 Mg [id number] Mg PO DAILY #60 CAP Prov:Clayton Nath MD 06/07/16 Trazodone 50 Mg [id number] Mg PO HS #120 TAB Prov:Clayton Nath MD 06/07/16 Aripiprazole 5 Mg Tab15 Mg PO HS #30 TAB Prov:Clayton Nath MD 06/07/16 Reported Medications Trazodone 300 Mg [id number] Mg PO HS 05/31/16 Risperidone (Risperdal)2 Mg Tab3 Mg .ROUTE Q12HR 05/31/16 Venlafaxine ER 24 HR (Effexor XR 24 HR)75 Mg [id number] Mg PO DAILY 05/31/16 Current Medications Medications (Trade) Dose Ordered Sig/Peri Route Start Time Stop Time Status Last Admin (Ativan) 1 mg Q6H PRN PO 06/10/16 23:45 (Ativan Inj) 1 mg Q6H PRN IM 06/10/16 23:45 (Tylenol) 650 mg Q4H PRN PO 06/10/16 23:45 (Milk Of Magnesia Liq) 30 ml DAILY PRN PO 06/10/16 23:45 (Mag-Al Plus Susp Liq) 30 ml Q6H PRN PO 06/10/16 23:45 (Effexor Xr) 150 mg DAILY PO 06/11/16 09:00 06/11/16 09:01 (Desyrel) 400 mg HS PO 06/11/16 21:00 (Abilify) 15 mg HS PO 06/11/16 21:00 (Habitrol 21 Mg Patch.24 Hr) 1 patch DAILY T-DERMAL 06/11/16 09:00 06/11/16 09:03 Miscellaneous Information 1 HS T-DERMAL 06/11/16 21:00 (risperDAL) 3 mg BID PO 06/11/16 09:00 06/11/16 09:01 Family History His mother was a schizophrenic Social History Patient was born and raised in [place], he has been living in [place] for 25 years, he lives alone in [place], he is a , unemployed, on [employer], his highest level of education is some college credits Patient's Strengths (min. 2) Good insight, compliant with medications Physical Exam A physical exam no EPS, no withdrawal, no tremors, no psychomotor retardation or agitation present Vital Signs Vital Signs Date Time Temp Pulse Resp B/P Pulse Ox O2 Delivery O2 Flow Rate FiO2 06/11/16 05:57 98.2 136/88 98 06/10/16 19:34 Room Air Mental Status Examination Appearance man, age appearing, good hygiene, in hospital [facility], calm and cooperative Speech: Unremarkable Orientation: x3 Memory: Unremarkable Thought Process: Logical Thought Content: Unremarkable Hallucination Type: None Suicidal Ideation: No Previous Suicide Attempts: No Homicidal Ideation: No Previous Homicide Attempts: No Judgment: WNL Affect if Inappropriate: Flat Mood: Sad Motor Activity: Normal gait Assessment & Plan Problem List: (1) Schizophrenia, paranoid, chronic with acute exacerbation Assessment & Plan: The patient is a 51-year-old man, domiciled alone in [place], single, unemployed, supported by [facility], with a History of schizophrenia, 2 previous psychiatric hospitalizations, the last hospitalization was here at [facility] under the care of Dr. Nath, he was just discharged 3 days ago, he has no previous suicidal attempts, he sees in outpatient to the nurse practitioner Nadja Dela Cruz, he is on Abilify 15 mg, Risperdal 3 mg twice a day, Effexor 150 mg, trazodone 400 mg at bedtime, no significant medical history, who was brought to the ER by police because patient approached to them requesting to be García act due to paranoia and command in type auditory hallucinations. Patient reports increased commanding type auditory hallucinations for the last 3 days in spite of been taking his medication as prescribed. Voices are telling him to kill himself. He also reports paranoia of thinking that unknown people wanting to harm him and cut his neck. He denies suicidal and homicidal ideation, he denies visual hallucinations. Patient seems to be very distressed and anxious about ongoing psychosis. Patient needs psychiatric hospitalization for stabilization. Will be admitted in 2600 unit voluntarily. I will increase the Abilify to 20 mg daily to help with psychosis. Will continue the other psychotropics. Extensive psychoeducation, supportive motivation provided. new car make ready worker intervention for psychosocial assessment. ICD Code: F20.0 Assessment & Plan Estimated LOS: Allan Roa MD Jun 11, 2016 14:10
[2016-06-11] MEDS: LORazepam 1 MG TAB PO PRN (14:22)
--- NOTE | 2016-06-11 14:24 | HHI.HP ---
Provisional Diagnosis Admission Date Jun 10, 2016 at 21:20 [place] I. Schizophrenia, paranoid type [place] II. Deferred [place] III. No medical diagnosis [place] IV. Lack of family and social support [place] V. 40 Certification of Person's Competence To Provide Express and Informed Consent I have personally examined Josh Caldera , a person being served at [facility] on, Jun 11, 2016 14:23. Express and informed consent means consent voluntarily given in writing, by a competent person, after sufficient explanation and disclosure of the subject matter involved to enable the person to make a knowing and willful decision without any element of force, fraud, deceit, duress, or other form of constraint or coercion. This person is 18 years of age or older, is not now known to be incompetent to consent to treatment with a guardian advocate, and does not have a health care surrogate or proxy currently making medical treatment decisions. I have found this person to be one of the following: [X] Competent to provide express and informed consent, as defined above, for voluntary admission to this facility and is competent to provide express and informed consent for treatment. He/she has the consistent capacity to make well reasoned, willful, and knowing decisions concerning his or her medical or mental health treatment. The person fully and consistently understands the purpose of the admission for examination/placement and is fully capable of personally exercising all rights assured under [place] Incompetent to provide express and informed consent to voluntary admission, and this is incompetent to provide express and informed consent to treatment. The person must be transferred to involuntary status and a petition for a guardian advocate filed with the Circuit Court. [] Refusing to provide express and informed consent to voluntary admission but is competent to provide express and informed consent for treatment. The person must be discharged or transferred to involuntary status. Form shall be completed within 24 hours of a person's arrival at the receiving facility and filed in the clinical record of each person: 1. Admitted on a voluntary basis 2. Permitted to provide express and informed consent to his/her own treatment 3. Allowed to transfer from involuntary to voluntary status 4. Prior to permitting a person to consent to his or her own treatment after having been previously found incompetent to consent to treatment. History of Present Illness Capacity: Has Capacity HPI The patient is a 51-year-old man, domiciled alone in [place], single, unemployed, supported by [facility], with a History of schizophrenia, 2 previous psychiatric hospitalizations, the last hospitalization was here at [facility] under the care of Dr. Nath, he was just discharged 3 days ago, he has no previous suicidal attempts, he sees in outpatient to the nurse practitioner Nadja Dela Cruz, he is on Abilify 15 mg, Risperdal 3 mg twice a day, Effexor 150 mg, trazodone 400 mg at bedtime, no significant medical history, who was brought to the ER by police because patient approached to them requesting to be García act due to paranoia and command in type auditory hallucinations. On psychiatric evaluation in the unit patient is calm, cooperative, he is found in his room sleeping, but easily arousable. Patient explains that since he was discharged from the hospital, he has been trying to ignore his voices and the paranoia of being followed "by people that want to kill". He says that he has an obsessive Thought of people the will come when he is not aware and will cut his neck. He says that at moments he becomes extremely afraid and is difficult for him to convince his brain that this is not true, but most of the time he have a good insight. He also reports hearing voices telling him to kill himself. He denies suicidal and homicidal ideation, he reports good mood, denies anxiety, denies tremors, denies EPS, nausea. Patient denies the use of drugs and alcohol. He smokes about 1-1/2 package of cigarettes per day. Past Family Social History Coded Allergies: No Known Allergies (Verified , 05/31/16) Active Scripts Venlafaxine ER 24 HR (Effexor XR 24 HR)75 Mg [id number] Mg PO DAILY #60 CAP Prov:Clayton Nath MD 06/07/16 Trazodone 50 Mg [id number] Mg PO HS #120 TAB Prov:Clayton Nath MD 06/07/16 Aripiprazole 5 Mg Tab15 Mg PO HS #30 TAB Prov:Clayton Nath MD 06/07/16 Reported Medications Trazodone 300 Mg [id number] Mg PO HS 05/31/16 Risperidone (Risperdal)2 Mg Tab3 Mg .ROUTE Q12HR 05/31/16 Venlafaxine ER 24 HR (Effexor XR 24 HR)75 Mg [id number] Mg PO DAILY 05/31/16 Current Medications Medications (Trade) Dose Ordered Sig/Peri Route Start Time Stop Time Status Last Admin (Ativan) 1 mg Q6H PRN PO 06/10/16 23:45 (Ativan Inj) 1 mg Q6H PRN IM 06/10/16 23:45 (Tylenol) 650 mg Q4H PRN PO 06/10/16 23:45 (Milk Of Magnesia Liq) 30 ml DAILY PRN PO 06/10/16 23:45 (Mag-Al Plus Susp Liq) 30 ml Q6H PRN PO 06/10/16 23:45 (Effexor Xr) 150 mg DAILY PO 06/11/16 09:00 06/11/16 09:01 (Desyrel) 400 mg HS PO 06/11/16 21:00 (Habitrol 21 Mg Patch.24 Hr) 1 patch DAILY T-DERMAL 06/11/16 09:00 06/11/16 09:03 Miscellaneous Information 1 HS T-DERMAL 06/11/16 21:00 (risperDAL) 3 mg BID PO 06/11/16 09:00 06/11/16 09:01 (Abilify) 20 mg HS PO 06/11/16 21:00 (Cogentin) 1 mg Q12HR PO 06/11/16 21:00 Patient's Strengths (min. 2) Good insight, compliant with medications Physical Exam Vital Signs Vital Signs Date Time Temp Pulse Resp B/P Pulse Ox O2 Delivery O2 Flow Rate FiO2 06/11/16 05:57 98.2 136/88 98 06/10/16 19:34 Room Air Mental Status Examination Speech: Unremarkable Orientation: x3 Memory: Unremarkable Thought Process: Logical Thought Content: Unremarkable Hallucination Type: None Suicidal Ideation: No Previous Suicide Attempts: No Homicidal Ideation: No Previous Homicide Attempts: No Judgment: WNL Affect if Inappropriate: Flat Mood: Sad Motor Activity: Normal gait Assessment & Plan Problem List: (1) Schizophrenia, paranoid, chronic with acute exacerbation Assessment & Plan: Please refer to psychiatric assessment done in psychiatric consult 06/11/2016 ICD Code: F20.0 Assessment & Plan Estimated LOS: Allan Roa MD Jun 11, 2016 14:24
[2016-06-11 18:04] VITALS: BP 134/73; PULSE 100; RESP 18; TEMP 98.8; O2SAT 97
[2016-06-11] MEDS ORDERED: ARIPiprazole 15 MG TAB PO SCH (21:00)
[2016-06-11] MEDS: REMOVE OLD NICOTINE PATCH T-DERMAL SCH (21:00)
[2016-06-11] MEDS: traZODone HCL 100 MG TAB PO SCH (21:47)
[2016-06-11] MEDS: BENZTROPINE MESYLATE 1 MG TAB PO SCH (21:47)
[2016-06-12 05:24] VITALS: BP 113/76; PULSE 82; RESP 18; TEMP 97.6; O2SAT 97
[2016-06-12] MEDS: risperiDONE 3 MG TAB PO SCH ×2 (08:29→21:19)
[2016-06-12] MEDS: BENZTROPINE MESYLATE 1 MG TAB PO SCH ×2 (08:30→21:19)
[2016-06-12] MEDS: NICOTINE 21 MG/24 HR PATCH T-DERMAL SCH (08:30)
[2016-06-12] MEDS: VENLAFAXINE HCL XR 75 MG CAP PO SCH (08:30)
[2016-06-12] MEDS: LORazepam 1 MG TAB PO PRN (13:45)
[2016-06-12 18:00] VITALS: BP 121/91; PULSE 105; RESP 17; TEMP 97.3; O2SAT 98
[2016-06-12] MEDS: REMOVE OLD NICOTINE PATCH T-DERMAL SCH (21:00)
[2016-06-12] MEDS: traZODone HCL 100 MG TAB PO SCH (21:20)
--- NOTE | 2016-06-12 21:22 | HHI.PYPN ---
Subjective Remarks Pt seen and discussed with staff. Pt reports that AH are telling him to kill self but are diminishing and less intrusive. He is tolerating medications without side effects. Hygiene is limited. He is isolative to his room. No agitation/aggression. Objective Alert: Yes [place]: Person, Place, Date Mood: Calm Affect: Restricted Memory Intact: Immediate, Recent, Remote Hallucinations: Auditory (command AH to kill self) Delusions: No Delusion Type: Other (none) Suicidal: Ideation (denies) Homicidal: Ideation (denies) Insight/Judgment poor Vitals/IOs Vital Signs Date Time Temp Pulse Resp B/P Pulse Ox O2 Delivery O2 Flow Rate FiO2 06/12/16 18:00 97.3 105 17 121/91 98 06/10/16 19:34 Room Air Assessment & Plan Problem List: (1) Schizophrenia, paranoid, chronic with acute exacerbation ICD Code: F20.0 Assessment & Plan Pt improving. Continue current tx plan. Estimated LOS: days Justification for Cont. Inpt. impairments in reality construction. Rachael Verma MD Jun 12, 2016 21:22
[2016-06-13 06:40] VITALS: BP 115/80; PULSE 80; RESP 18; TEMP 98.7; O2SAT 95
[2016-06-13] MEDS: NICOTINE 21 MG/24 HR PATCH T-DERMAL SCH (09:55)
[2016-06-13] MEDS: BENZTROPINE MESYLATE 1 MG TAB PO SCH ×2 (09:55→21:51)
[2016-06-13] MEDS: VENLAFAXINE HCL XR 75 MG CAP PO SCH (09:55)
[2016-06-13] MEDS: risperiDONE 3 MG TAB PO SCH ×2 (09:55→21:51)
[2016-06-13] MEDS: LORazepam 1 MG TAB PO PRN (13:25)
--- NOTE | 2016-06-13 15:51 | HHI.PYPN ---
Subjective Remarks Patient discussed with treatment team, patient seen in unit with nurse Renate, chart reviewed. Patient calm pleasant with me states that her to hallucinations are somewhat resolving the intensity threatening this about her hips often. There is still some vague suicidal ideation with him. He states he has had auditory hallucinations for many years. For now continue treatment Review of Systems Except as stated in HPI: all other systems reviewed are Neg Objective Alert: Yes [place]: Person, Place, Date Mood: Calm Affect: Restricted Memory Intact: Immediate, Recent, Remote Hallucinations: Auditory (command AH to kill self) Delusions: No Delusion Type: Other (none) Suicidal: Ideation (denies) Homicidal: Ideation (denies) Insight/Judgment Poor Vitals/IOs Vital Signs Date Time Temp Pulse Resp B/P Pulse Ox O2 Delivery O2 Flow Rate FiO2 06/13/16 06:40 98.7 80 18 115/80 95 06/10/16 19:34 Room Air Intake and Output 06/12/16 06/12/16 06/13/16 08:00 16:00 00:00 Intake Total 360 ml Balance 360 ml Assessment & Plan Problem List: (1) Schizophrenia, paranoid, chronic with acute exacerbation ICD Code: F20.0 Assessment & Plan Estimated LOS: days patient continue psychotic the voices are softening somewhat, compliant medications, Justification for Cont. Inpt. At this time patient decompensate if placement lower level of care Discharge Planning To be determined Waldo Ulloa MD Jun 13, 2016 15:51
[2016-06-13 19:48] VITALS: BP 150/95; PULSE 82; RESP 18; TEMP 99.2; O2SAT 99
[2016-06-13] MEDS: REMOVE OLD NICOTINE PATCH T-DERMAL SCH (21:00)
[2016-06-13] MEDS: traZODone HCL 100 MG TAB PO SCH (21:51)
[2016-06-14 06:05] VITALS: BP 161/90; PULSE 86; RESP 18; TEMP 97.4; O2SAT 98
[2016-06-14] MEDS: NICOTINE 21 MG/24 HR PATCH T-DERMAL SCH (09:18)
[2016-06-14] MEDS: BENZTROPINE MESYLATE 1 MG TAB PO SCH ×2 (09:18→21:59)
[2016-06-14] MEDS: VENLAFAXINE HCL XR 75 MG CAP PO SCH (09:18)
[2016-06-14] MEDS: risperiDONE 3 MG TAB PO SCH ×2 (09:18→21:59)
--- NOTE | 2016-06-14 11:55 | HHI.PYPN ---
Subjective Remarks Patient seen in [place] with nurse Aisstaou, chart reviewed. Patient feeling somewhat better today says his sleep is somewhat improved now denies suicidality the auditory hallucinations persist but are somewhat decreased in intensity and frequency. For now continue treatment Review of Systems Except as stated in HPI: all other systems reviewed are Neg Objective Alert: Yes [place]: Person, Place, Date Mood: Calm Affect: Restricted Memory Intact: Immediate, Recent, Remote Hallucinations: Auditory (decreased frequency and intensity and intrusiveness of voices) Delusions: No Delusion Type: Other (none) Suicidal: Ideation (denies) Homicidal: Ideation (denies) Insight/Judgment Poor Vitals/IOs Vital Signs Date Time Temp Pulse Resp B/P Pulse Ox O2 Delivery O2 Flow Rate FiO2 06/14/16 06:05 97.4 86 18 161/90 98 06/10/16 19:34 Room Air Assessment & Plan Problem List: (1) Schizophrenia, paranoid, chronic with acute exacerbation ICD Code: F20.0 Assessment & Plan Estimated LOS: days patient continues psychotic though the psychosis is softening, his mood is improving, compliant medications. For now continue treatment Justification for Cont. Inpt. At this time patient decompensate placed in the lower level of care Discharge Planning To be determined Waldo Ulloa MD Jun 14, 2016 11:55
[2016-06-14 19:00] VITALS: BP 130/71; PULSE 107; RESP 17; TEMP 97.6; O2SAT 99
[2016-06-14] MEDS: REMOVE OLD NICOTINE PATCH T-DERMAL SCH (21:00)
[2016-06-14] MEDS: traZODone HCL 100 MG TAB PO SCH (21:59)
[2016-06-15 06:00] VITALS: BP 148/82; PULSE 78; RESP 18; TEMP 97.6; O2SAT 96
[2016-06-15] MEDS: BENZTROPINE MESYLATE 1 MG TAB PO SCH ×2 (08:53→20:09)
[2016-06-15] MEDS: NICOTINE 21 MG/24 HR PATCH T-DERMAL SCH (08:53)
[2016-06-15] MEDS: risperiDONE 3 MG TAB PO SCH ×2 (08:53→20:10)
[2016-06-15] MEDS: VENLAFAXINE HCL XR 75 MG CAP PO SCH (08:53)
--- NOTE | 2016-06-15 08:55 | HHI.PYPN ---
Subjective Remarks Patient seen in his room with nurse Renate. Patient states the auditory hallucinations are slightly improved today not talking as bed to him. He denies suicidality at this time. He does have a place to live and he does follow through with [facility]. For now will increase at bedtime Abilify to 30 mg Review of Systems Except as stated in HPI: all other systems reviewed are Neg Objective Alert: Yes [place]: Person, Place, Date Mood: Calm Affect: Restricted Memory Intact: Immediate, Recent, Remote Hallucinations: Auditory (decreased frequency and intensity and intrusiveness of voices) Delusions: No Delusion Type: Other (none) Suicidal: Ideation (denies) Homicidal: Ideation (denies) Insight/Judgment Poor Vitals/IOs Vital Signs Date Time Temp Pulse Resp B/P Pulse Ox O2 Delivery O2 Flow Rate FiO2 06/15/16 06:00 97.6 78 18 148/82 96 Assessment & Plan Problem List: (1) Schizophrenia, paranoid, chronic with acute exacerbation ICD Code: F20.0 Assessment & Plan Estimated LOS: days patient psychosis persist but somewhat softer please see medication adjustment above Justification for Cont. Inpt. At this time patient will decompensate if placed at a lower level of care Discharge Planning To be determined Waldo Ulloa MD Jun 15, 2016 08:55
[2016-06-15 17:48] VITALS: BP 125/79; PULSE 88; RESP 18; TEMP 97.4; O2SAT 98
[2016-06-15] MEDS: traZODone HCL 100 MG TAB PO SCH (20:10)
[2016-06-15] MEDS: REMOVE OLD NICOTINE PATCH T-DERMAL SCH (20:11)
[2016-06-15 23:26] VITALS: BP 125/79; PULSE 88; RESP 18; TEMP 97.4; O2SAT 98
[2016-06-16 05:55] VITALS: BP 115/74; PULSE 91; RESP 16; TEMP 97.9; O2SAT 98
[2016-06-16] MEDS: NICOTINE 21 MG/24 HR PATCH T-DERMAL SCH (09:16)
[2016-06-16] MEDS: risperiDONE 3 MG TAB PO SCH (09:16)
[2016-06-16] MEDS: BENZTROPINE MESYLATE 1 MG TAB PO SCH (09:16)
[2016-06-16] MEDS: VENLAFAXINE HCL XR 75 MG CAP PO SCH (09:16)
[2016-06-16] MEDS ORDERED: RISP3 PO (12:41)
[2016-06-16] MEDS ORDERED: BENZ1TAB PO (12:41)
[2016-06-16] MEDS ORDERED: EFFE150C PO (12:41)
[2016-06-16] MEDS ORDERED: ARIP1TAB7 PO (12:41)
[2016-06-16] MEDS ORDERED: TRAZ100T4 PO (12:41)
[2016-06-16] MEDS ORDERED: TRAZ300T2 PO (12:41)
--- NOTE | 2016-06-16 12:55 | HHI.DS ---
Psychiatry Discharge Summary Inpatient Psychiatric care?: Yes Advance Directive: No Reason Not Provided: Due to Patient Condition Mental Health AdvanceDirective: No Health Care Proxy: No Admission Admission Date Jun 10, 2016 at 21:20 Admission Diagnosis: (1) Schizophrenia, paranoid, chronic with acute exacerbation ICD Code: F20.0 (2) Marijuana abuse ICD Code: F12.10 Brief History The patient is a 51-year-old man, domiciled alone in [place], single, unemployed, supported by [facility], with a History of schizophrenia, 2 previous psychiatric hospitalizations, the last hospitalization was here at [facility] under the care of Dr. Nath, he was just discharged 3 days ago, he has no previous suicidal attempts, he sees in outpatient to the nurse practitioner Nadja Dela Cruz, he is on Abilify 15 mg, Risperdal 3 mg twice a day, Effexor 150 mg, trazodone 400 mg at bedtime, no significant medical history, who was brought to the ER by police because patient approached to them requesting to be García act due to paranoia and command in type auditory hallucinations. On psychiatric evaluation in the unit patient is calm, cooperative, he is found in his room sleeping, but easily arousable. Patient explains that since he was discharged from the hospital, he has been trying to ignore his voices and the paranoia of being followed "by people that want to kill". He says that he has an obsessive Thought of people the will come when he is not aware and will cut his neck. He says that at moments he becomes extremely afraid and is difficult for him to convince his brain that this is not true, but most of the time he have a good insight. He also reports hearing voices telling him to kill himself. He denies suicidal and homicidal ideation, he reports good mood, denies anxiety, denies tremors, denies EPS, nausea. Patient denies the use of drugs and alcohol. He smokes about 1-1/2 package of cigarettes per day. Tobacco Use In Past 30 Days: 5 or More Cigarettes/Day Alcohol Use: Never Hospital Course Patient's hospital course was somewhat uneventful. Patient compliant medications from admission. His psychosis irritability and vigilance diminished rapidly. The now denies suicidality homicidality. He states that auditory hallucinations but markedly decreased. No longer intrusive threatening demanding or irritable. At this time I feel patient has reached maximum benefit of this hospitalization he does have lodging, he does [facility]. He does denies suicidality homicidality is able contracted to do no harm. Thus patient to be discharged today to himself, instructions as mentioned above Results Blood Pressure 115 / 74 Vital Signs Date Time Temp Pulse Resp B/P Pulse Ox O2 Delivery O2 Flow Rate FiO2 06/16/16 05:55 97.9 91 16 115/74 98 Urine toxicology positive for marijuana Summary of Procedures None done Pending results at discharge: No Medications # of Antipsychotic meds at D/C: 2 Approp Antipsych med options 1 - Minimum of three failed multiple trials of monotherapy. 2 - Documented plan to taper to monotherapy due to previous use of multiple meds OR cross-taper in progress at D/C. 3 - Documentation of augmentation of Clozapine. 4 - Justification other than those listed in allowable values 1-3, document here : Discharge Discharge Date: Jun 16, 2016 Discharge Diagnosis: (1) Schizophrenia, paranoid, chronic with acute exacerbation Diagnosis: Principal ICD Code: F20.0 (2) Marijuana abuse Diagnosis: Secondary ICD Code: F12.10 Mental Status Exam at Disch Alert oriented white male sitting calmly in his room, he is normal active, his mood is euthymic to slightly restricted, affect shows decreased range and intensity, speech rate and rhythm within normal limits though no formal thought disorders, there continues vague auditory hallucinations not threatening or intrusive, able to be controlled, no visual hallucinations, no delusions noted. Insight and judgment is fair, cognition grossly intact Pt Condition on Discharge: Stable Discharge Disposition: Discharge Home Discharge Instructions Diet Instructions: As Tolerated, No Restrictions Activities you can perform: Regular-No Restrictions Scheduled Appointment: [facility] Appointment Date: Jun 21, 2016 Appointment Time: 7:30am Discharge Time > 30 minutes Discharge/Advance Care Plan Health Problems: (1) Schizophrenia, paranoid, chronic with acute exacerbation Goals to promote your health * To prevent worsening of your condition and complications * To maintain your health at the optimal level Directions to meet your goals Take your medications as prescribed Follow your dietary instruction Follow activity as directed Keep your appointments as scheduled Take your immunizations and boosters as scheduled If your symptoms worsen call your PCP, if no PCP go to Urgent Care Center or Emergency Room For 19/09 questions related to your inpatient stay or results of tests pending at discharge, please contact Dr. Waldo Ulloa at Smoking is Dangerous to Your Health. Avoid second hand smoking Waldo Ulloa MD Jun 16, 2016 12:55
[2016-06-17] MEDS ORDERED: AUGM875T PO (17:42)
[2016-08-03] MEDS ORDERED: CLON1 PO (10:04)
== END 2016-06-16 16:50 | disposition home or self-care (01) | DRG 885 ==
LOC: NEDAMB 17:31 → NEDA 21:20 → H260 22:36
PROVIDERS: ADMIT Psychiatry & Neurology Psychiatry; ATTEND Psychiatry & Neurology Psychiatry
DX: F20.0 Paranoid schizophrenia (principal); F12.10 Cannabis abuse, uncomplicated; F17.210 Nicotine dependence, cigarettes, uncomplicated; Z63.8 Other specified problems related to primary support group
CPT/HCPCS: 80048; 80053; 80061; 80307; 83036; 85025; 99285

== ENCOUNTER 2016-06-17 15:39 | Emergency (ER) | payer OTHER ==
[~2016-06-17] VITALS: Ht 177.8 cm; Wt 93.5 kg
[~2016-06-17 15:39] MED LIST changes: +ARIP1TAB7 PO; +BENZ1TAB PO; +EFFE150C PO; +RISP3 PO; +TRAZ100T4 PO
[2016-06-17 15:45] VITALS: BP 168/98; PULSE 110; RESP 19; TEMP 98.1; O2SAT 97
--- NOTE | 2016-06-17 16:16 | PD ---
HPI Chief Complaint: Psychiatric Symptoms Time Seen by Provider: 16:14 Travel History International Travel<30 days: No Contact w/Intl Traveler<30days: No Traveled to known affect area: No History of Present Illness HPI 51-year-old male that presents to the ED for evaluation of psych evaluation. Patient came in voluntarily for this. Patient has a chronic history of schizophrenia has been here multiple times for the past. Per patient he believes that there someone there to get him. He seeing things and hallucinating. Per patient he states having compliant with his medications. Patient actually was just seen twice this month alone. He states that he believes that the medications and not working. He denies any other medical process. Per patient he lives at home. He denies any recent drug abuse or alcohol abuse. He completely denies smoking marijuana recently. He has no suicidal or homicidal ideation. Per patient the voices are not telling him to hurt himself or anybody else. He denies any medical problems at this time. No history of diabetes or hypertension. No other medical problems at this time. Per patient the symptoms have been worsening for the past couple of days. PFSH Past Medical History Anxiety: Yes Depression: Yes Heart Rhythm Problems: No Cardiac Catheterization: No High Cholesterol: No Congestive Heart Failure: No Diminished Hearing: No Endocrine: No Genitourinary: No Hypertension: No Immune Disorder: No Musculoskeletal: No Neurologic: No Psychiatric: Yes (Yes- schizophrenia) Reproductive: No Respiratory: No Immunizations Current: Yes Myocardial Infarction: No Past Surgical History Abdominal Surgery: No Cardiac Surgery: No Coronary Artery Bypass Graft: No Ear Surgery: No Endocrine Surgery: No Eye Surgery: No Genitourinary Surgery: No Oral Surgery: No Tonsillectomy: Yes Social History Alcohol Use: No Tobacco Use: Yes Substance Use: No Allergies-Medications (Allergen,Severity, Reaction): Coded Allergies: No Known Allergies (Verified , 06/17/16) Reported Meds & Prescriptions Reported Meds & Active Scripts Active Augmentin (Amoxicillin-Clavulanate) 875-125 mg Tab 875 Mg PO BID 10 Days not for use in CrCl <30 ml/min. Effexor XR 24 HR (Venlafaxine HCl) 150 Mg Cap 150 Mg PO DAILY Trazodone (Trazodone HCl) 300 Mg Tab 300 Mg PO HS Trazodone (Trazodone HCl) 100 Mg Tab 100 Mg PO HS Risperdal (Risperidone) 3 Mg Tab 3 Mg PO BID Benztropine (Benztropine Mesylate) 1 Mg Tab 1 Mg PO Q12HR Abilify (Aripiprazole) 20 Mg Tab 20 Mg PO HS Effexor XR 24 HR (Venlafaxine HCl) 75 Mg Cap 150 Mg PO DAILY Trazodone (Trazodone HCl) 50 Mg Tab 400 Mg PO HS Aripiprazole 5 Mg Tab 15 Mg PO HS Reported Trazodone (Trazodone HCl) 300 Mg Tab 400 Mg PO HS Risperdal (Risperidone) 2 Mg Tab 3 Mg .ROUTE Q12HR Effexor XR 24 HR (Venlafaxine HCl) 75 Mg Cap 150 Mg PO DAILY Review of Systems Except as stated in HPI: all other systems reviewed are Neg Physical Exam Narrative GENERAL: SKIN: Warm and dry. HEAD: Atraumatic. Normocephalic. EYES: Pupils equal and round. No scleral icterus. No injection or drainage. ENT: No nasal bleeding or discharge. Mucous membranes pink and moist. Tongue is midline. No uvula deviation. NECK: Trachea midline. No JVD. CARDIOVASCULAR: Regular rate and rhythm. No murmurs, S3, S4. RESPIRATORY: No accessory muscle use. Clear to auscultation. Breath sounds equal bilaterally. GASTROINTESTINAL: Abdomen soft, non-tender, nondistended. Hepatic and splenic margins not palpable. MUSCULOSKELETAL: Extremities without clubbing, cyanosis, or edema. No obvious deformities. Full range of motion of the upper and lower extremities bilaterally. Pupils pulses bilaterally. NEUROLOGICAL: Awake and alert. No obvious cranial nerve deficits. Motor grossly within normal limits. Five out of 5 muscle strength in the arms and legs. Normal speech. PSYCHIATRIC: Somewhat psychotic mood and affect; insight and judgment normal. Data Data Last Documented VS Vital Signs Date Time Temp Pulse Resp B/P Pulse Ox O2 Delivery O2 Flow Rate FiO2 06/17/16 15:45 98.1 110 19 168/98 97 Orders Complete Blood Count With Diff (06/17/16 16:00) Comprehensive Metabolic Panel (06/17/16 16:00) Psych Screen (06/17/16 16:00) Drug Screen, Random Urine (06/17/16 16:00) Alcohol (Ethanol) (06/17/16 16:00) Amoxicil-Clavulanate (Augmentin) (06/17/16 17:30) Wound Care (06/17/16 17:30) Tetanus/Diphtheria Tox Adult (Tetanus/Di (06/17/16 17:30) MDM Medical Decision Making Medical Screen Exam Complete: Yes Emergency Medical Condition: Yes Medical Record Reviewed: Yes Differential Diagnosis Depression versus suicidal ideation versus anxiety versus adjustment disorder versus mood disorder versus bipolar disorder versus schizophrenia versus paranoid disorder versus psychosis versus substance abuse versus alcohol abuse versus alcohol induced psychosis versus homicidality addition versus cutting versus personality disorder Narrative Course 51-year-old male that presents to the ED for evaluation of psych. Patient was properly examined and was found to have signs and symptoms consistent appears to be psychiatric illness. No sign of acute medical distress. Labs were drawn. Patient will be medically clear pending labs. Okay to be seen by psych. I was informed by ED psych nurse that patient apparently had a dog bite to his right leg that he did not mention to me. Per patient is happened yesterday while he was trying to separate 2 dogs that were attacking each other. Patient does have superficial dog bites to the dorsal and plantar aspect of the foot. Some bruising noted on the webspace between the first and second digits. Full range of motion of all digits. No sign of neurological deficit. I do not see any sign of infection at this time. I recommend wound care. Patient will be started on Augmentin and given tetanus booster. I do not see any need for imaging at this time as patient is able to walk on it with no signs of pain. Patient will be given a prescription for Augmentin for this. Patient was medically clear. Mental health screening was discussed with the patient. Diagnosis Primary Impression: Schizophrenia, paranoid, chronic with acute exacerbation Additional Impression: Dog bite Qualified Code: W54.0XXA - Dog bite, initial encounter Scripts Amoxicillin-Clavulanate (Augmentin)875-125 mg Vig950 Mg PO BID 10 Days not for use in CrCl <30 ml/min. Prov:Delfino Pinto MD 06/17/16 Manuel Livingston Jun 17, 2016 16:16
[2016-06-17] MEDS ORDERED: TETANUS/DIPHTHERIA TOXOID ADULT 0.5 ML VIAL IM ONE (17:30)
[2016-06-17] MEDS ORDERED: AMOXICILLIN/CLAVULANATE K 875 MG TAB PO ONE (17:30)
[2016-06-17] MEDS ORDERED: AUGM875T PO (17:42)
[2016-06-17 18:54] LABS: AUTOMATED NEUTROPHIL # 7.3 TH/MM3 (1.8-7.7); BASOPHIL # 0.1 TH/MM3 (0-0.2); BASOPHIL % 0.5 % (0.0-2.0); EOSINOPHIL # 0.1 TH/MM3 (0-0.4); EOSINOPHIL % 0.8 % (0.0-4.0); HEMATOCRIT 45.8 % (39.0-51.0); HEMO FLAGS DIFF FINAL; LYMPH % 23.6 % (9.0-44.0); LYMPHOCYTE # 2.7 TH/MM3 (1.0-4.8); MEAN CELL VOLUME 86.8 FL (80.0-100.0); MEAN CORPUSCULAR HEMOGLOBIN 30.6 PG (27.0-34.0); MEAN CORPUSCULAR HGB CONC 35.3 % (32.0-36.0); MONO % 10.5 % (0.0-8.0); NEUT % 64.6 % (16.0-70.0); PLATELET COUNT 133 TH/MM3 (150-450); RED BLOOD COUNT 5.28 MIL/MM3 (4.50-5.90); RED CELL DISTRIBUTION WIDTH 12.6 % (11.6-17.2); WHITE BLOOD COUNT 11.3 TH/MM3 (4.0-11.0)
[2016-06-17 18:58] LABS: ANION GAP 8 MEQ/L (5-15); AST (GOT) 17 U/L (15-37); BICARBONATE 27.9 MEQ/L (21.0-32.0); BLOOD UREA NITROGEN 4 MG/DL (7-18); CHLORIDE 102 MEQ/L (98-107); GLOMERULAR FILTRATION RATE 79 ML/MIN (>89); POTASSIUM 3.9 MEQ/L (3.5-5.1); SODIUM (NA) 138 MEQ/L (136-145)
[2016-06-17 19:03] LABS: ALKALINE PHOSPHATASE 85 U/L (45-117); ALT (GPT) 69 U/L (12-78); TOTAL BILIRUBIN ADULT 0.6 MG/DL (0.2-1.0)
[2016-06-17 19:13] LABS: AMPHETAMINE, URINE NEG (NEG); BARBITURATES, URINE NEG (NEG); COCAINE, URINE NEG (NEG)
[2016-06-17 19:27] VITALS: BP 164/90; PULSE 87; RESP 17; O2SAT 99
[2016-06-17 20:36] LABS: MEAN CORPUSCULAR HGB CONC 36.3 % (32.0-36.0)
[2016-06-17] MEDS ORDERED: traZODone HCL 100 MG TAB PO SCH (21:00)
[2016-06-17] MEDS: BENZTROPINE MESYLATE 1 MG TAB PO SCH (21:11)
[2016-06-17] MEDS: risperiDONE 3 MG TAB PO SCH (21:11)
[2016-06-17 22:18] LABS: AUTOMATED NEUTROPHIL # 4.7 TH/MM3 (1.8-7.7); BASOPHIL # 0.1 TH/MM3 (0-0.2); BASOPHIL % 0.6 % (0.0-2.0); EOSINOPHIL # 0.1 TH/MM3 (0-0.4); EOSINOPHIL % 1.1 % (0.0-4.0); HEMATOCRIT 45.1 % (39.0-51.0); LYMPHOCYTE # 3.1 TH/MM3 (1.0-4.8); MEAN CELL VOLUME 85.9 FL (80.0-100.0); MEAN CORPUSCULAR HEMOGLOBIN 31.2 PG (27.0-34.0); MONO % 10.5 % (0.0-8.0); NEUT % 52.8 % (16.0-70.0); PLATELET COUNT 142 TH/MM3 (150-450); RED BLOOD COUNT 5.25 MIL/MM3 (4.50-5.90); RED CELL DISTRIBUTION WIDTH 12.7 % (11.6-17.2); WHITE BLOOD COUNT 8.9 TH/MM3 (4.0-11.0)
[2016-06-17 22:19] VITALS: BP 137/85; PULSE 96; RESP 18; O2SAT 98
[2016-06-17 22:22] LABS: HEMO FLAGS AUTO DIFF
[2016-06-18 00:02] LABS: SCAN/DIFF AUTO DIFF CONFIRMED
[2016-06-18 02:27] VITALS: BP 143/87; PULSE 92; RESP 18; O2SAT 97
[2016-06-18 06:45] VITALS: BP 118/100; PULSE 100; PULSE 18; RESP 18; O2SAT 97
[2016-06-18] MEDS: BENZTROPINE MESYLATE 1 MG TAB PO SCH (08:45)
[2016-06-18] MEDS: risperiDONE 3 MG TAB PO SCH (08:45)
[2016-06-18 10:19] VITALS: BP 111/63; PULSE 107; RESP 18; O2SAT 98
--- NOTE | 2016-06-18 10:40 | PD ---
History of Present Illness Chief Complaint: Psychiatric Symptoms Time Seen by Provider: 10:35 Travel History International Travel<30 Days: No Contact w/Intl Traveler<30days: No Known affected area: No Legal Status Legal Status: Voluntary History of Present Illness: History of Present Illness HPI 51-year-old male with history of schizoaffective disorder that presents to the ED on a voluntary basis for psychiatric evaluation. Patient was admitted to [facility] and discharged on June 16, 2016. At the time of his discharge he was stable. ED documentation is reviewed and included in this report : " Per patient he believes that there someone there to get him. He seeing things and hallucinating. Per patient he states having compliant with his medications He states that he believes that the medications and not working. He denies any recent drug abuse or alcohol abuse. He completely denies smoking marijuana recently. He has no suicidal or homicidal ideation. Per patient the voices are not telling him to hurt himself or anybody else. Per patient the symptoms have been worsening for the past couple of days." EMR is reviewed . Patient has been admitted to [facility] on June 01 to June 07, and again on June 10 to June 16, 2016. Current toxicology is negative and he denies any substance use. Patient was allowed to remain under observation in J pod overnight. he slept well and did not appear to be internally preoccupied. This morning he is alert, oriented, calm. Speech is clear. Although he reports continued auditory hallucinations he does not appear to be internally preoccupied at this time. the voices are non command. There is no suicidal ideation. Patient has reported to GUNNER Drummond that htere have been some problems in his building with plumbing. This could possibly be motivating his visits to ED. He reports he is medication compliant. PFSH Past Medical History Anxiety: Yes Depression: Yes Heart Rhythm Problems: No Cardiac Catheterization: No High Cholesterol: No Congestive Heart Failure: No Diabetes: No Diminished Hearing: No Endocrine: No Gastrointestinal Disorders: No Genitourinary: No Heparin Induced Thrombocytopen: No Hypertension: No Immune Disorder: No Implanted Vascular Access Dvce: No Musculoskeletal: No Neurologic: No Psychiatric: Yes (SCHIZOPHRENIA) Reproductive: No Respiratory: No Immunizations Current: Yes Myocardial Infarction: No Seizures: No Past Surgical History Abdominal Surgery: No Cardiac Surgery: No Coronary Artery Bypass Graft: No Ear Surgery: No Endocrine Surgery: No Eye Surgery: No Genitourinary Surgery: No Neurologic Surgery: No Oral Surgery: No Tonsillectomy: Yes Other Surgery: No Psychiatric History Psychiatric History Hx Psychiatric Treatment: HX OF DEPRESSION, ANXIETY AND schizoaffetive disorder History of Inpatient Treatment: Yes (Last hosp at [facility] and discharged June 16, 2016) Guns or firearms in home: No Social History Single male. Lives by self. On disability Hx Alcohol Use: No Hx Tobacco Use: Yes Hx Substance Use: No Substance Use Type: Alcohol, Marijuana, Benzos (Valium,Xanax) Hx of Substance Use Treatment: Yes Family Psychiatric History None Allergies-Medications (Allergen,Severity, Reaction): Coded Allergies: No Known Allergies (Verified , 06/17/16) Reported Meds & Prescriptions Reported Meds & Active Scripts Active Effexor XR 24 HR (Venlafaxine HCl) 150 Mg Cap 150 Mg PO DAILY Risperdal (Risperidone) 3 Mg Tab 3 Mg PO BID Benztropine (Benztropine Mesylate) 1 Mg Tab 1 Mg PO Q12HR Reported Trazodone (Trazodone HCl) 300 Mg Tab 400 Mg PO HS Review of Systems Except as stated in HPI: all other systems reviewed are Neg Exam Alert: Yes [place]: Person (ox4) Mood: Calm Affect: Restricted Speech: Clear, Logical Eye Contact: Normal Memory Intact: Comment (no impairment) Hallucinations: Auditory (reports persistent ) Delusions: No (Although he is afraid someone, unspecified may hurt him) Suicidal: Ideation (negative) Homicidal: Ideation (negative) Insight/Judgement Poor. Not impaired. MDM Medical Decision Making Medical Record Reviewed: Yes Assessment/Plan 51 year old male under a voluntary status reporting auditory hallucinations. Patient with persistent hallucinations non command type. He was recently discharged from inpatient unit. Patient was monitored overnight and presented no behavioral concerns and no suicidality. He was offered support. At this time it is determined that he does not meet admission for admission and it would be counter therapeutic to admit him once again. Encourage patient to develop positive coping skills and follow up with out patient provider. Orders Complete Blood Count With Diff (4/21/17 16:00) Comprehensive Metabolic Panel (06/17/16 16:00) Psych Screen (06/17/16 16:00) Drug Screen, Random Urine (06/17/16 16:00) Alcohol (Ethanol) (06/17/16 16:00) Amoxicil-Clavulanate (Augmentin) (06/17/16 17:30) Wound Care (06/17/16 17:30) Tetanus/Diphtheria Tox Adult (Tetanus/Di (06/17/16 17:30) Benztropine (Cogentin) (06/17/16 21:00) Risperidone (Risperdal) (06/17/16 21:00) Trazodone (Desyrel) (06/17/16 21:00) Complete Blood Count With Diff (06/17/16 20:34) Diet Regular Basic (06/18/16 Breakfast) Diet Regular Basic (06/18/16 Lunch) Results Vital Signs Date Time Temp Pulse Resp B/P Pulse Ox O2 Delivery O2 Flow Rate FiO2 06/18/16 10:19 107 18 111/63 98 Room Air 06/18/16 06:45 100 18 118/100 97 06/18/16 02:27 92 18 143/87 97 06/17/16 22:19 96 18 137/85 98 06/17/16 19:27 87 17 164/90 99 Room Air 06/17/16 15:45 98.1 110 19 168/98 97 Laboratory Tests Test 06/17/16 06/17/16 06/17/16 06/17/16 14:49 18:15 18:35 22:05 Sodium Level 138 Potassium Level 3.9 Chloride Level 102 Carbon Dioxide Level 27.9 Anion Gap 8 Blood Urea Nitrogen 4 Creatinine 1.00 Estimat Glomerular Filtration 79 Rate Random Glucose 107 Calcium Level 9.1 Total Bilirubin 0.6 Aspartate Amino Transf 17 (AST/SGOT) Alanine Aminotransferase 69 (ALT/SGPT) Alkaline Phosphatase 85 Total Protein 7.3 Albumin 3.9 Ethyl Alcohol Level 6 White Blood Count 11.3 8.9 Red Blood Count 5.28 5.25 Hemoglobin 16.2 16.4 Hematocrit 45.8 45.1 Mean Corpuscular Volume 86.8 85.9 Mean Corpuscular Hemoglobin 30.6 31.2 Mean Corpuscular Hemoglobin 35.3 36.3 Concent Red Cell Distribution Width 12.6 12.7 Platelet Count 133 142 Mean Platelet Volume 8.3 8.2 Neutrophils (%) (Auto) 64.6 52.8 Lymphocytes (%) (Auto) 23.6 35.0 Monocytes (%) (Auto) 10.5 10.5 Eosinophils (%) (Auto) 0.8 1.1 Basophils (%) (Auto) 0.5 0.6 Neutrophils # (Auto) 7.3 4.7 Lymphocytes # (Auto) 2.7 3.1 Monocytes # (Auto) 1.2 0.9 Eosinophils # (Auto) 0.1 0.1 Basophils # (Auto) 0.1 0.1 CBC Comment DIFF FINAL AUTO DIFF Differential Comment AUTO DIFF CONFIRMED Urine Opiates Screen NEG Urine Barbiturates Screen NEG Urine Amphetamines Screen NEG Urine Benzodiazepines Screen NEG Urine Cocaine Screen NEG Urine Cannabinoids Screen NEG Diagnosis Primary Impression: Dog bite Additional Impression: Schizoaffective disorder Psychiatrically Cleared: Yes Med/ Other Pt Specific Info: No Change to Meds Disposition: 01 DISCHARGE HOME Condition: Stable Problem Qualifiers Primary Impression: Dog bite Qualified Code: W54.0XXA - Dog bite, initial encounter Additional Impression: Schizoaffective disorder Qualified Code: F25.1 - Schizoaffective disorder, depressive type Julia Elena Jun 18, 2016 10:40
[2016-08-03] MEDS ORDERED: CLON1 PO (10:04)
== END 2016-06-18 11:22 | disposition home or self-care (01) ==
LOC: NEPJ 15:39
DX: F20.0 Paranoid schizophrenia (principal); S81.851A Open bite, right lower leg, initial encounter; W54.0XXA Bitten by dog, initial encounter
CPT/HCPCS: 80053; 80307; 85025; 90471; 90714

== ENCOUNTER 2016-06-24 13:03 | Inpatient (IN) | payer OTHER ==
[~2016-06-24] VITALS: Ht 177.8 cm; Wt 89.9 kg
[~2016-06-24 13:03] MED LIST changes: -ARIP1TAB11 PO; -ARIP1TAB7 PO; -RISP2TAB37; -TRAZ100T4 PO; -TRAZ50TA12 PO; -VENL75XR PO
[2016-06-24 14:00] VITALS: BP 135/69; PULSE 79; RESP 18; TEMP 97.8; O2SAT 98
--- NOTE | 2016-06-24 14:06 | PD ---
HPI Chief Complaint: psychiatric symptoms Time Seen by Provider: 14:01 Travel History International Travel<30 days: No Contact w/Intl Traveler<30days: No History of Present Illness HPI 51-year-old male with PMH of schizophrenia, anxiety and depression presents to the ED under García act for psychiatric evaluation. Patient states that he has been feeling paranoid and hearing voices that tell him that someone is trying to harm him for ~ 6 days. He also admits to seeing shadows in the corners of his vision that field return repairer to be nothing. States that he locked himself in his room for the last 6 days with very little to eat or drink. He denies SI or HI. He endorses malaise and mild stomach cramping. Endorses small, dry bowel movement today. He denies chest pain, palpitations, dysuria, hematuria, back pain. He endorses compliance with his psychiatric medications. He endorses previous psychiatric hospitalization. PFSH Past Medical History Anxiety: Yes Depression: Yes Heart Rhythm Problems: No Cardiac Catheterization: No High Cholesterol: No Congestive Heart Failure: No Diabetes: No Diminished Hearing: No Endocrine: No Gastrointestinal Disorders: No Genitourinary: No Heparin Induced Thrombocytopen: No Hypertension: No Immune Disorder: No Implanted Vascular Access Dvce: No Musculoskeletal: No Neurologic: No Psychiatric: Yes (SCHIZOPHRENIA) Reproductive: No Respiratory: No Immunizations Current: Yes Myocardial Infarction: No Seizures: No Past Surgical History Abdominal Surgery: No Cardiac Surgery: No Coronary Artery Bypass Graft: No Ear Surgery: No Endocrine Surgery: No Eye Surgery: No Genitourinary Surgery: No Neurologic Surgery: No Oral Surgery: No Tonsillectomy: Yes Other Surgery: No Social History Alcohol Use: No Tobacco Use: Yes Substance Use: No Allergies-Medications (Allergen,Severity, Reaction): Coded Allergies: No Known Allergies (Verified , 06/17/16) Reported Meds & Prescriptions Reported Meds & Active Scripts Active Effexor XR 24 HR (Venlafaxine HCl) 150 Mg Cap 150 Mg PO DAILY Risperdal (Risperidone) 3 Mg Tab 3 Mg PO BID Benztropine (Benztropine Mesylate) 1 Mg Tab 1 Mg PO Q12HR Reported Trazodone (Trazodone HCl) 300 Mg Tab 400 Mg PO HS Review of Systems Except as stated in HPI: all other systems reviewed are Neg Physical Exam Narrative GENERAL: Well-nourished, well-developed anxious appearing white male in no acute distress. SKIN: Focused skin assessment warm/dry. HEAD: Normocephalic. EYES: No scleral icterus. No injection or drainage. NECK: Supple, trachea midline. No JVD or lymphadenopathy. CARDIOVASCULAR: Regular rate and rhythm without murmurs, gallops, or rubs. 2+ DP and radial pulses bilaterally. RESPIRATORY: Breath sounds clear and equal bilaterally. No accessory muscle use. GASTROINTESTINAL: Abdomen soft, non-tender, nondistended. Active bowel sounds MUSCULOSKELETAL: No cyanosis, or edema. Patient is ambulatory and moves extremities spontaneously. BACK: Nontender without obvious deformity. No CVA tenderness. Data Data Last Documented VS Vital Signs Date Time Temp Pulse Resp B/P Pulse Ox O2 Delivery O2 Flow Rate FiO2 06/24/16 19:00 100 18 112/72 Room Air 06/24/16 14:00 97.8 98 Orders Complete Blood Count With Diff (06/24/16 13:59) Comprehensive Metabolic Panel (06/24/16 13:59) Psych Screen (06/24/16 13:59) Drug Screen, Random Urine (06/24/16 13:59) Alcohol (Ethanol) (06/24/16 13:59) Diet Regular Basic (06/24/16 Dinner) Thyroid Stimulating Hormone (06/24/16 13:59) Urinalysis - C+S If Indicated (06/24/16 18:06) Urine Culture (06/24/16 18:00) Sulfamet-Trimeth Ds 800-160 Mg (Bactrim (06/24/16 20:00) Labs Laboratory Tests Test 06/24/16 06/24/16 06/24/16 16:45 17:55 18:00 Sodium Level 141 MEQ/L Potassium Level 4.2 MEQ/L Chloride Level 106 MEQ/L Carbon Dioxide Level 28.5 MEQ/L Anion Gap 7 MEQ/L Blood Urea Nitrogen 16 MG/DL Creatinine 1.11 MG/DL Estimat Glomerular Filtration 70 ML/MIN Rate Random Glucose 84 MG/DL Calcium Level 9.0 MG/DL Total Bilirubin 0.5 MG/DL Aspartate Amino Transf 30 U/L (AST/SGOT) Alanine Aminotransferase 69 U/L (ALT/SGPT) Alkaline Phosphatase 84 U/L Total Protein 7.7 GM/DL Albumin 3.8 GM/DL Thyroid Stimulating Hormone 1.730 uIU/ML 3rd Gen Ethyl Alcohol Level LESS THAN 3 MG/DL White Blood Count 12.0 TH/MM3 Red Blood Count 5.29 MIL/MM3 Hemoglobin 16.1 GM/DL Hematocrit 46.7 % Mean Corpuscular Volume 88.3 FL Mean Corpuscular Hemoglobin 30.5 PG Mean Corpuscular Hemoglobin 34.5 % Concent Red Cell Distribution Width 12.7 % Platelet Count 227 TH/MM3 Mean Platelet Volume 8.8 FL Neutrophils (%) (Auto) 70.6 % Lymphocytes (%) (Auto) 21.6 % Monocytes (%) (Auto) 6.8 % Eosinophils (%) (Auto) 0.4 % Basophils (%) (Auto) 0.6 % Neutrophils # (Auto) 8.5 TH/MM3 Lymphocytes # (Auto) 2.6 TH/MM3 Monocytes # (Auto) 0.8 TH/MM3 Eosinophils # (Auto) 0.1 TH/MM3 Basophils # (Auto) 0.1 TH/MM3 CBC Comment DIFF FINAL Differential Comment Urine Color YELLOW Urine Turbidity CLOUDY Urine pH 5.5 Urine Specific [place] 1.033 Urine Protein 30 mg/dL Urine Glucose (UA) NEG mg/dL Urine Ketones NEG mg/dL Urine Occult Blood SMALL Urine Nitrite NEG Urine Bilirubin NEG Urine Urobilinogen LESS THAN 2.0 MG/DL Urine Leukocyte Esterase NEG Urine RBC 1 /hpf Urine WBC 134 /hpf Urine Amorphous Sediment MANY Urine Bacteria OCC /hpf Urine Mucus MANY /lpf Microscopic Urinalysis Comment CULTURE INDICATED Urine Opiates Screen NEG Urine Barbiturates Screen NEG Urine Amphetamines Screen NEG Urine Benzodiazepines Screen NEG Urine Cocaine Screen NEG Urine Cannabinoids Screen POS [facility] Medical Decision Making Medical Screen Exam Complete: Yes Emergency Medical Condition: Yes Medical Record Reviewed: Yes Differential Diagnosis Adjustment disorder versus anxiety versus bipolar versus depression versus dementia versus electrolyte disorder versus malingering versus mood disorder versus ODD versus psychosis versus PTSD versus schizophrenia versus schizoaffective disorder versus substance-induced mood disorder versus other Narrative Course 51-year-old male with PMH of schizophrenia, anxiety and depression presents to the ED under García act for psychiatric evaluation. Patient states that he has been feeling paranoid and hearing voices that tell him that someone is trying to harm him for ~ 6 days. He also admits to seeing shadows in the corners of his vision that field return repairer to be nothing. States that he locked himself in his room for the last 6 days with very little to eat or drink. He denies SI or HI. He endorses malaise and mild stomach cramping. Endorses small, dry bowel movement today. He denies chest pain, palpitations, dysuria, hematuria, back pain. He endorses compliance with his psychiatric medications. He endorses previous psychiatric hospitalization. Vitals reviewed. Physical exam revealed an anxious feeling white male in no acute distress. Chest clear to endoscopy bilaterally. Abdomen soft, nontender. No edema in the lower extremities. CBC with leukocytosis of 12.0. CMP unremarkable. UA cloudy, small occult blood, wbc's 34, occasional bacteria, culture pending. Tox screen positive for cannabis. EtOH less than 3. Patient was administered single dose of Bactrim DS , appreciate continued 12 hour dosing by the oncoming provider. Also provided a prescription for Bactrim DS twice a day 3 days. Please see psych notes for disposition. Diagnosis Primary Impression: UTI (urinary tract infection) Qualified Code: N39.0 - Urinary tract infection without hematuria, site unspecified Scripts Sulfamethoxazole-Trimethoprim (Bactrim DS)800-160 Mg Tab1 Tab PO BID #6 TAB Ref 0 Prov:Harrison Chapin MD 06/24/16 Aby Farnsworth Jun 24, 2016 14:05
[2016-06-24 18:23] LABS: ALKALINE PHOSPHATASE 84 U/L (45-117); ALT (GPT) 69 U/L (12-78); ANION GAP 7 MEQ/L (5-15); AST (GOT) 30 U/L (15-37); BICARBONATE 28.5 MEQ/L (21.0-32.0); BLOOD UREA NITROGEN 16 MG/DL (7-18); CHLORIDE 106 MEQ/L (98-107); GLOMERULAR FILTRATION RATE 70 ML/MIN (>89); SODIUM (NA) 141 MEQ/L (136-145); TOTAL BILIRUBIN ADULT 0.5 MG/DL (0.2-1.0)
[2016-06-24 18:25] LABS: POTASSIUM 4.2 MEQ/L (3.5-5.1)
[2016-06-24 18:46] LABS: BACTERIA, URINE OCC /hpf; BLOOD, URINE SMALL (NEG); COMMENT (UR) CULTURE INDICATED; CULTURE IF INDICATED CULTURE INDICATED; GLUCOSE,URINE NEG (NEG); KETONE, URINE NEG (NEG); MUCUS URINE MANY /lpf (OCC); NITRITE,URINE NEG (NEG); PH, URINE 5.5 (5.0-8.5); URINE COLOR YELLOW (YELLW/STRAW)
[2016-06-24 19:00] VITALS: BP 112/72; PULSE 100; RESP 18
[2016-06-24 19:02] LABS: AMPHETAMINE, URINE NEG (NEG); BARBITURATES, URINE NEG (NEG); COCAINE, URINE NEG (NEG)
[2016-06-24] MEDS ORDERED: SULFAMETHOXAZOLE-TRIMETHOPRIM DS 800-160 MG TAB PO ONE (20:00)
[2016-06-24 20:23] LABS: AUTOMATED NEUTROPHIL # 8.5 TH/MM3 (1.8-7.7); BASOPHIL # 0.1 TH/MM3 (0-0.2); BASOPHIL % 0.6 % (0.0-2.0); EOSINOPHIL # 0.1 TH/MM3 (0-0.4); EOSINOPHIL % 0.4 % (0.0-4.0); HEMATOCRIT 46.7 % (39.0-51.0); HEMO FLAGS DIFF FINAL; LYMPH % 21.6 % (9.0-44.0); LYMPHOCYTE # 2.6 TH/MM3 (1.0-4.8); MEAN CELL VOLUME 88.3 FL (80.0-100.0); MEAN CORPUSCULAR HEMOGLOBIN 30.5 PG (27.0-34.0); MEAN CORPUSCULAR HGB CONC 34.5 % (32.0-36.0); MONO % 6.8 % (0.0-8.0); NEUT % 70.6 % (16.0-70.0); PLATELET COUNT 227 TH/MM3 (150-450); RED BLOOD COUNT 5.29 MIL/MM3 (4.50-5.90); RED CELL DISTRIBUTION WIDTH 12.7 % (11.6-17.2)
[2016-06-24] MEDS ORDERED: BACT800T5 PO (20:58)
[2016-06-24 22:05] VITALS: BP 124/70; PULSE 97; RESP 18
[2016-06-25 02:06] VITALS: BP 158/89; PULSE 97; RESP 18; O2SAT 98
[2016-06-25 06:09] VITALS: BP 135/73; PULSE 91; RESP 18; O2SAT 99
[2016-06-25 11:00] VITALS: BP 107/88; PULSE 93; RESP 18
--- NOTE | 2016-06-25 11:05 | HHI.HP ---
Provisional Diagnosis Admission Date Jun 25, 2016 at 10:05 [place] I. Chronic paranoid schizophrenia [place] II. Deferred [place] III. Acathisia [place] IV. Perceptual disturbances refractory to medication [place] V. 45 Certification of Person's Competence To Provide Express and Informed Consent I have personally examined Josh Caldera , a person being served at [facility] on, Jun 25, 2016 10:50. Express and informed consent means consent voluntarily given in writing, by a competent person, after sufficient explanation and disclosure of the subject matter involved to enable the person to make a knowing and willful decision without any element of force, fraud, deceit, duress, or other form of constraint or coercion. This person is 18 years of age or older, is not now known to be incompetent to consent to treatment with a guardian advocate, and does not have a health care surrogate or proxy currently making medical treatment decisions. I have found this person to be one of the following: [X] Competent to provide express and informed consent, as defined above, for voluntary admission to this facility and is competent to provide express and informed consent for treatment. He/she has the consistent capacity to make well reasoned, willful, and knowing decisions concerning his or her medical or mental health treatment. The person fully and consistently understands the purpose of the admission for examination/placement and is fully capable of personally exercising all rights assured under [place] Incompetent to provide express and informed consent to voluntary admission, and this is incompetent to provide express and informed consent to treatment. The person must be transferred to involuntary status and a petition for a guardian advocate filed with the Circuit Court. [] Refusing to provide express and informed consent to voluntary admission but is competent to provide express and informed consent for treatment. The person must be discharged or transferred to involuntary status. Form shall be completed within 24 hours of a person's arrival at the receiving facility and filed in the clinical record of each person: 1. Admitted on a voluntary basis 2. Permitted to provide express and informed consent to his/her own treatment 3. Allowed to transfer from involuntary to voluntary status 4. Prior to permitting a person to consent to his or her own treatment after having been previously found incompetent to consent to treatment. History of Present Illness Capacity: Has Capacity HPI The patient is a 51-year-old man, domiciled alone in [place], single, unemployed, supported by [facility], with a History of schizophrenia, anxiety, depression, cannabis use disorder, known by service, 3 previous psychiatric hospitalizations, the last hospitalization was here at [facility] under the care of Dr. Ulloa, he was just discharged on June 16, he was just discharged 3 days ago, he has no previous suicidal attempts, he sees in outpatient to the nurse practitioner Nadja Dela Cruz, he is on Abilify 30 mg, Risperdal 3 mg twice a day, Effexor 150 mg, trazodone 400 mg at bedtime, no significant medical history, who presented to the ED under García act for psychiatric evaluation due to auditory hallucinations. Patient states that he has been feeling paranoid and hearing voices that tell him that someone is trying to harm him for ~ 6 days. He also admits to seeing shadows in the corners of his vision that inspector returned materials to be nothing. States that he locked himself in his room for the last 6 days with very little to eat or drink. On the ER patient was found with a mild UTI, was treated with antibiotics. On psychiatric evaluation in the unit patient is calm, cooperative, but seem to be restless, with continuous bilateral leg movement. Patient explains that he was discharged about a week ago from the hospital, he was doing fine for a couple days, but in the last 5-6 days voices and paranoia have come back, he has been trying to ignore his voices and the paranoia of being followed "by people that want to kill me, and also cut my neck". He says that he has an obsessive Thought of people the will come when he is not aware and will cut his neck. He says that at moments he becomes extremely afraid and is difficult for him to convince his brain that this is not true, but most of the time he have a good insight. He also reports hearing voices telling him to kill himself. He denies suicidal and homicidal ideation, he reports ok mood, denies anxiety, nausea. Patient denies the use of drugs and alcohol. He smokes about 1-1/2 package of cigarettes per day and uses marijuana occasionally, he denies alcohol and other illicit drugs use. Review of Systems Constitutional: DENIES: Diaphoretic episodes, Fatigue, Fever, Weight gain, Weight loss, Chills, Dizziness, Change in appetite, Night Sweats Endocrine: DENIES: Heat/cold intolerance, Polydipsia, Polyuria, Polyphagia Eyes: DENIES: Blurred vision, Diplopia, Eye inflammation, Eye pain, Vision loss , Photosensitivity, Double Vision Ears, nose, mouth, throat: DENIES: Tinnitus, Hearing loss, Vertigo, Nasal discharge, Oral lesions, Throat pain, Hoarseness, Ear Pain, Running Nose, Epistaxis, Sinus Pain, Toothache, Odynophagia Respiratory: DENIES: Apneas, Cough, Snoring, Wheezing, Hemoptysis, Sputum production, Shortness of breath Cardiovascular: DENIES: Chest pain, Palpitations, Syncope, Dyspnea on Exertion , PND, Lower Extremity Edema, Orthopnea, Claudication Gastrointestinal: DENIES: Abdominal pain, Black stools, Bloody stools, Constipation, Diarrhea, Nausea, Vomiting, Difficulty Swallowing, Anorexia Genitourinary: DENIES: Sexual dysfunction, Urinary frequency, Urinary incontinence, Urgency, Hematuria, Dysuria, Nocturia, Penile Discharge, Testicular Pain, Testicular Swelling Musculoskeletal: DENIES: Joint pain, Muscle aches, Stiffness, Joint Swelling, Back pain, Neck pain Integumentary: DENIES: Abnormal pigmentation, Nail changes, Pruritus, Rash Hematologic/lymphatic: DENIES: Bruising, Lymphadenopathy Immunologic/allergic: DENIES: Eczema, Urticaria Neurologic: DENIES: Abnormal gait, Headache, Localized weakness, Paresthesias, Seizures, Speech Problems, Tremor, Poor Balance Psychiatric: COMPLAINS OF: Anxiety, Hallucinations, Delusions, DENIES: Confusion, Mood changes, Depression, Agitation, Suicidal Ideation, Homicidal Ideation Other Patient has a has a marked akathisia Past Psych History Violence risk - self (6 mos) Increased Substance Abuse History Drugs/Alcohol past 12 months Patient denies the use of alcohol, he reports occasional use of marijuana Past Family Social History Coded Allergies: No Known Allergies (Verified , 06/17/16) Active Scripts Sulfamethoxazole-Trimethoprim (Bactrim DS)800-160 Mg Tab1 Tab PO BID #6 TAB Ref 0 Prov:Harrison Chapin MD 06/24/16 Venlafaxine ER 24 HR (Effexor XR 24 HR)150 Mg [id number] Mg PO DAILY #30 CAP Ref 0 Prov:Waldo Ulloa MD 06/16/16 Risperidone (Risperdal)3 Mg Tab3 Mg PO BID #60 TAB Ref 0 Prov:Waldo Ulloa MD 06/16/16 Benztropine 1 Mg Tab1 Mg PO Q12HR #60 TAB Ref 0 Prov:Waldo Ulloa MD 06/16/16 Reported Medications Trazodone 300 Mg Ehq088 Mg PO HS 05/31/16 Current Medications Medications (Trade) Dose Ordered Sig/Peri Route Start Time Stop Time Status Last Admin (Cogentin) 1 mg Q12HR PO 06/25/16 11:00 (risperDAL) 3 mg BID PO 06/25/16 10:45 (Bactrim Ds 800-160 Mg) 1 tab BID PO 06/25/16 10:45 (Effexor Xr) 150 mg DAILY PO 06/25/16 11:00 (Abilify) 5 mg HS PO 06/25/16 21:00 (Inderal) 10 mg Q8HR PO 06/25/16 14:00 (Desyrel) 100 mg HS PO 06/25/16 21:00 Family History Mother is schizophrenic Social History Patient was born and raised in [place], he has been living in [place] for 25 years, he lives alone in [place], he is a , unemployed, on SSI, his highest level of education is some college credits Patient's Strengths (min. 2) Good compliant with medications, good insight, Physical Exam On physical exam patient has a normal gait, no skin, vision, head, mouth eyes abnormalities, he does present restlessness, and continues movement of his legs. Vital Signs Vital Signs Date Time Temp Pulse Resp B/P Pulse Ox O2 Delivery O2 Flow Rate FiO2 06/25/16 06:09 91 18 135/73 99 06/25/16 02:06 Room Air 06/24/16 14:00 97.8 Lab Results Urine test is positive for UTI WBC 12.0, HBG 5.9, HCT 46.7, NA 141, K4.2, creatinine 1.11, BUN 16 AST 30, ALT 69 QTc interval, and EKG will be ordered Mental Status Examination Appearance man, age appearing, good hygiene, [facility], he is cooperative , restless, with marked akathisia Speech: Unremarkable Orientation: x3 Memory: Unremarkable Thought Process: Logical, Goal Directed Thought Content: Paranoid Hallucination Type: Auditory, Visual Suicidal Ideation: No Previous Suicide Attempts: No Homicidal Ideation: No Previous Homicide Attempts: No Insight: Fair Judgment: WNL Affect: Anxious Mood: Irritable Motor Activity: Normal gait Assessment & Plan Problem List: (1) Schizophrenia, paranoid, chronic with acute exacerbation Assessment & Plan: The patient is a 51-year-old man, domiciled alone in [place], single, unemployed, supported by [facility], with a History of schizophrenia, anxiety, depression, cannabis use disorder, known by service, 3 previous psychiatric hospitalizations, the last hospitalization was here at [facility] under the care of Dr. Ulloa, he was just discharged on June 16, he was just discharged 3 days ago, he has no previous suicidal attempts, he sees in outpatient to the nurse practitioner Nadja Dela Cruz, he is on Abilify 30 mg, Risperdal 3 mg twice a day, Effexor 150 mg, trazodone 400 mg at bedtime, no significant medical history, who presented to the ED under García act for psychiatric evaluation due to auditory hallucinations. Patient states that he has been feeling paranoid and hearing voices that tell him that someone is trying to harm him for ~ 6 days. He also admits to seeing shadows in the corners of his vision that inspector returned materials to be nothing. States that he locked himself in his room for the last 6 days with very little to eat or drink. On the ER patient was found with a mild UTI, was treated with Bactrim. On psychiatric evaluation Patient reports increased commanding type auditory hallucinations for the last 5-6 days in spite of been taking his medication as prescribed. Voices are telling him to kill himself. He also reports paranoia of thinking that unknown people wanting to harm him and cut his neck. He denies suicidal and homicidal ideation, he denies visual hallucinations. Patient seems to be very distressed and anxious about ongoing psychosis. Also a significant akathisia is noted. Patient needs psychiatric hospitalization for stabilization and safety. Will be admitted in 2600 unit voluntarily. Appropriate safety measure taken. Will restart psychotropics in a lower dose, we will start propranolol 10 mg 3 times a day for EPS. Extensive psychoeducation, supportive motivation provided. pan tank worker intervention for psychosocial assessment, counseling, collateral information and discharge planning. Patient will participate in individual and group therapies. Will order an EKG for baseline QTc interval. ICD Code: F20.0 (2) Marijuana abuse ICD Code: F12.10 Assessment & Plan Estimated LOS: Allan Thakur MD Jun 25, 2016 11:04
[2016-06-25] MEDS ORDERED: LORazepam 2 MG/ML VIAL - age > 65 yrs IM PRN (11:15)
[2016-06-25] MEDS ORDERED: LORazepam 1 MG TAB PO PRN (11:15)
[2016-06-25] MEDS ORDERED: ALUMINUM/MAGNESIUM/SIMETH 30 ML CUP PO PRN (11:15)
[2016-06-25] MEDS ORDERED: LORazepam 0.5 MG TAB age > 65 yrs PO PRN (11:15)
[2016-06-25] MEDS ORDERED: LORazepam 2 MG/ML VIAL IM PRN (11:15)
[2016-06-25] MEDS: BENZTROPINE MESYLATE 1 MG TAB PO SCH ×2 (11:33→21:00)
[2016-06-25] MEDS: risperiDONE 3 MG TAB PO SCH ×2 (11:33→21:25)
[2016-06-25] MEDS: SULFAMETHOXAZOLE-TRIMETHOPRIM DS 800-160 MG TAB PO SCH ×2 (11:33→21:26)
[2016-06-25 11:54] VITALS: BP 151/81; PULSE 96; TEMP 98.5; O2SAT 97
[2016-06-25] MEDS: VENLAFAXINE HCL XR 75 MG CAP PO SCH (12:05)
[2016-06-25] MEDS: PROPRANOLOL HCL 10 MG TAB PO SCH ×2 (14:05→21:28)
[2016-06-25] MEDS ORDERED: traZODone HCL 100 MG TAB PO SCH (21:00)
[2016-06-25] MEDS: traZODone HCL 100 MG TAB PO SCH (21:25)
[2016-06-25] MEDS: ARIPiprazole 5 MG TAB PO SCH (21:26)
[2016-06-26] MEDS: PROPRANOLOL HCL 10 MG TAB PO SCH ×3 (06:05→21:43)
[2016-06-26 06:20] VITALS: BP 114/74; PULSE 90; RESP 18; TEMP 97.5; O2SAT 98
[2016-06-26] MEDS: BENZTROPINE MESYLATE 1 MG TAB PO SCH ×2 (08:47→21:43)
[2016-06-26] MEDS: risperiDONE 3 MG TAB PO SCH ×2 (08:47→21:43)
[2016-06-26] MEDS: VENLAFAXINE HCL XR 75 MG CAP PO SCH (08:47)
[2016-06-26] MEDS: SULFAMETHOXAZOLE-TRIMETHOPRIM DS 800-160 MG TAB PO SCH ×2 (08:47→21:43)
[2016-06-26] MEDS: NICOTINE 21 MG/24 HR PATCH T-DERMAL SCH (08:48)
[2016-06-26 08:55] LABS: HDL CHOLESTEROL 24.1 MG/DL (40.0-60.0); LDL CHOLESTEROL 95 MG/DL (0-99)
[2016-06-26] MEDS ORDERED: NICOTINE 7 MG/24 HR PATCH T-DERMAL SCH (09:00)
[2016-06-26 11:27] LABS: HEMOGLOBIN A1a 0.8 %; HEMOGLOBIN A1b 1.7 %; HEMOGLOBIN Ao 86.3 %; HEMOGLOBIN P3 3.5 %
--- NOTE | 2016-06-26 14:08 | HHI.PYPN ---
Subjective Remarks Pt seen and discussed with staff. Pt reports akathisia has resolved with decrease in Abilify. He remains paranoid and c/o of AH threatening to kill him but reports SI has decreased. No behavioral problems Objective Alert: Yes [place]: Person, Place, Date Mood: Anxious Affect: Restricted Memory Intact: Immediate, Recent, Remote Hallucinations: Auditory Delusions: Yes Delusion Type: Paranoid Suicidal: Ideation (denies) Homicidal: Ideation (denies) Insight/Judgment fair Labs Test 06/26/16 07:40 Hemoglobin A1c 5.2 % Triglycerides Level 172 MG/DL Cholesterol Level 153 MG/DL LDL Cholesterol 95 MG/DL HDL Cholesterol 24.1 MG/DL Cholesterol/HDL Ratio 6.34 RATIO Date/Time Procedure Status Source Growth 06/24/16 18:00 Urine Culture - Final Complete Urine Clean Catch 10-50,000 CFU/ML MIXED GRAM POSITIVE ... Vitals/IOs Vital Signs Date Time Temp Pulse Resp B/P Pulse Ox O2 Delivery O2 Flow Rate FiO2 06/26/16 06:20 97.5 90 18 114/74 98 06/25/16 11:00 Room Air Intake and Output 06/25/16 06/25/16 06/26/16 08:00 16:00 00:00 Intake Total 360 ml Balance 360 ml Assessment & Plan Problem List: (1) Schizophrenia, paranoid, chronic with acute exacerbation ICD Code: F20.0 (2) Marijuana abuse ICD Code: F12.10 Assessment & Plan Continue current tx plan. Estimated LOS: days Justification for Cont. Inpt. impairments in safety and reality construction Rachael Verma MD Jun 26, 2016 14:08
[2016-06-26 18:00] VITALS: BP 136/91; PULSE 86; RESP 18; TEMP 97.8; O2SAT 97
[2016-06-26] MEDS: traZODone HCL 100 MG TAB PO SCH (21:43)
[2016-06-26] MEDS: ARIPiprazole 5 MG TAB PO SCH (21:43)
[2016-06-27] MEDS: PROPRANOLOL HCL 10 MG TAB PO SCH ×3 (06:02→21:17)
[2016-06-27 06:12] VITALS: BP 135/82; PULSE 94; RESP 18; TEMP 98.7; O2SAT 98
[2016-06-27] MEDS: VENLAFAXINE HCL XR 75 MG CAP PO SCH (08:10)
[2016-06-27] MEDS: SULFAMETHOXAZOLE-TRIMETHOPRIM DS 800-160 MG TAB PO SCH ×2 (08:10→21:14)
[2016-06-27] MEDS: risperiDONE 3 MG TAB PO SCH ×2 (08:10→21:14)
[2016-06-27] MEDS: BENZTROPINE MESYLATE 1 MG TAB PO SCH ×2 (08:10→21:14)
[2016-06-27] MEDS: NICOTINE 21 MG/24 HR PATCH T-DERMAL SCH (08:12)
[2016-06-27] MEDS: MAGNESIUM HYDROXIDE SUSP 30 ML CUP PO PRN (11:24)
--- NOTE | 2016-06-27 13:40 | HHI.PYPN ---
Subjective Remarks Continues to report extreme paranoia. He is watching the door constantly. Does not want to socialize with others. Review of Systems ROS Limitations: Clinical Condition Objective Alert: Yes [place]: Person, Place, Date Mood: Anxious Affect: Restricted Memory Intact: Immediate, Recent, Remote Hallucinations: Auditory Delusions: Yes Delusion Type: Paranoid Suicidal: Ideation (denies) Homicidal: Ideation (denies) Insight/Judgment Impaired Labs Date/Time Procedure Status Source Growth 06/24/16 18:00 Urine Culture - Final Complete Urine Clean Catch 10-50,000 CFU/ML MIXED GRAM POSITIVE ... Vitals/IOs Vital Signs Date Time Temp Pulse Resp B/P Pulse Ox O2 Delivery O2 Flow Rate FiO2 06/27/16 06:12 98.7 94 18 135/82 98 06/25/16 11:00 Room Air Intake and Output 06/26/16 06/26/16 06/27/16 08:00 16:00 00:00 Intake Total 240 ml Balance 240 ml Assessment & Plan Problem List: (1) Schizophrenia, paranoid, chronic with acute exacerbation ICD Code: F20.0 (2) Marijuana abuse ICD Code: F12.10 Assessment & Plan Estimated LOS: 5 days patient remains psychotic with paranoid delusions. He needs more time on his medication to stabilize. Justification for Cont. Inpt. Likely to decompensate at lower level of care. Clayton Nath MD June 27, 2016 13:40
[2016-06-27] MEDS: ACETAMINOPHEN 325 MG TAB PO PRN (17:02)
[2016-06-27] MEDS: traZODone HCL 100 MG TAB PO SCH (21:14)
[2016-06-27] MEDS: ARIPiprazole 5 MG TAB PO SCH (21:14)
[2016-06-27 22:02] VITALS: BP 117/78; PULSE 85; RESP 18; TEMP 97.9; O2SAT 98
[2016-06-28] MEDS: PROPRANOLOL HCL 10 MG TAB PO SCH ×3 (05:22→21:24)
[2016-06-28 05:53] VITALS: BP 117/81; PULSE 82; RESP 18; TEMP 97.7; O2SAT 98
[2016-06-28] MEDS: SULFAMETHOXAZOLE-TRIMETHOPRIM DS 800-160 MG TAB PO SCH (09:02)
[2016-06-28] MEDS: VENLAFAXINE HCL XR 75 MG CAP PO SCH (09:03)
[2016-06-28] MEDS: BENZTROPINE MESYLATE 1 MG TAB PO SCH ×2 (09:03→21:24)
[2016-06-28] MEDS: risperiDONE 3 MG TAB PO SCH ×2 (09:03→21:24)
--- NOTE | 2016-06-28 14:08 | HHI.PYPN ---
Subjective Remarks Remains seclusive and paranoid. Does not want a medication change however. Patient does want to give the medicine more of a chance to work. Review of Systems ROS Limitations: Clinical Condition Objective Alert: Yes [place]: Person, Place, Date Mood: Anxious Affect: Restricted Memory Intact: Immediate, Recent, Remote Hallucinations: Auditory Delusions: Yes Delusion Type: Paranoid Suicidal: Ideation (denies) Homicidal: Ideation (denies) Insight/Judgment Impaired Labs Date/Time Procedure Status Source Growth 06/24/16 18:00 Urine Culture - Final Complete Urine Clean Catch 10-50,000 CFU/ML MIXED GRAM POSITIVE ... Vitals/IOs Vital Signs Date Time Temp Pulse Resp B/P Pulse Ox O2 Delivery O2 Flow Rate FiO2 06/28/16 05:53 97.7 82 18 117/81 98 06/25/16 11:00 Room Air Assessment & Plan Problem List: (1) Schizophrenia, paranoid, chronic with acute exacerbation ICD Code: F20.0 (2) Marijuana abuse ICD Code: F12.10 Assessment & Plan Estimated LOS: 3 days need to give Risperdal and Abilify a chance to work. Justification for Cont. Inpt. Likely to decompensate at lower level of care. Clayton Nath MD June 28, 2016 14:08
[2016-06-28] MEDS ORDERED: PETROLEUM/SHARK LIVER OIL 60 GM TUBE RECTAL PRN (16:45)
[2016-06-28 16:56] VITALS: BP 108/58; PULSE 82; RESP 16; TEMP 98; O2SAT 94
[2016-06-28] MEDS: ARIPiprazole 5 MG TAB PO SCH (21:24)
[2016-06-28] MEDS: traZODone HCL 100 MG TAB PO SCH (21:24)
[2016-06-29 05:53] VITALS: BP 121/77; PULSE 87; RESP 16; TEMP 98.1; O2SAT 98
[2016-06-29] MEDS: PROPRANOLOL HCL 10 MG TAB PO SCH ×3 (06:26→22:09)
[2016-06-29] MEDS: risperiDONE 3 MG TAB PO SCH ×2 (08:36→22:09)
[2016-06-29] MEDS: BENZTROPINE MESYLATE 1 MG TAB PO SCH ×2 (08:36→22:09)
[2016-06-29] MEDS: VENLAFAXINE HCL XR 75 MG CAP PO SCH (08:37)
[2016-06-29 18:01] VITALS: BP 129/74; PULSE 80; RESP 18; TEMP 97.1; O2SAT 98
[2016-06-29] MEDS: ARIPiprazole 5 MG TAB PO SCH (22:09)
[2016-06-29] MEDS: traZODone HCL 100 MG TAB PO SCH (22:09)
[2016-06-30 06:22] VITALS: BP 130/85; PULSE 81; RESP 16; TEMP 98; O2SAT 97
[2016-06-30] MEDS: PROPRANOLOL HCL 10 MG TAB PO SCH ×3 (06:31→21:21)
[2016-06-30] MEDS: VENLAFAXINE HCL XR 75 MG CAP PO SCH (08:21)
[2016-06-30] MEDS: risperiDONE 3 MG TAB PO SCH ×2 (08:21→21:20)
[2016-06-30] MEDS: BENZTROPINE MESYLATE 1 MG TAB PO SCH ×2 (08:21→21:19)
--- NOTE | 2016-06-30 10:19 | HHI.PYPN ---
Subjective Remarks Patient continues to demonstrate paranoid ideation. He is afraid of his peers as well as staff. He feels people continue to plot against him. Review of Systems ROS Limitations: Clinical Condition Objective Alert: Yes [place]: Person, Place, Date Mood: Anxious Affect: Restricted Memory Intact: Immediate, Recent, Remote Hallucinations: Auditory Delusions: Yes Delusion Type: Paranoid Suicidal: Ideation (denies) Homicidal: Ideation (denies) Insight/Judgment Impaired Vitals/IOs Vital Signs Date Time Temp Pulse Resp B/P Pulse Ox O2 Delivery O2 Flow Rate FiO2 06/30/16 06:22 98.0 81 16 130/85 97 Assessment & Plan Problem List: (1) Schizophrenia, paranoid, chronic with acute exacerbation ICD Code: F20.0 (2) Marijuana abuse ICD Code: F12.10 Assessment & Plan Estimated LOS: 5 days patient continues to need more time to respond to antipsychotic therapy. Justification for Cont. Inpt. Likely to decompensate at lower level of care. Clayton Nath MD June 30, 2016 10:19
[2016-06-30 20:18] VITALS: BP 130/82; PULSE 100; RESP 16; TEMP 99.3; O2SAT 99
[2016-06-30] MEDS: traZODone HCL 100 MG TAB PO SCH (21:19)
[2016-06-30] MEDS: ARIPiprazole 5 MG TAB PO SCH (21:19)
[2016-07-01] MEDS: PROPRANOLOL HCL 10 MG TAB PO SCH ×3 (05:48→21:09)
[2016-07-01 06:24] VITALS: BP 127/74; PULSE 70; RESP 16; TEMP 97.7; O2SAT 97
[2016-07-01] MEDS: BENZTROPINE MESYLATE 1 MG TAB PO SCH ×2 (08:25→21:08)
[2016-07-01] MEDS: risperiDONE 3 MG TAB PO SCH ×2 (08:25→21:08)
[2016-07-01] MEDS: VENLAFAXINE HCL XR 75 MG CAP PO SCH (08:25)
--- NOTE | 2016-07-01 13:30 | HHI.PYPN ---
Subjective Remarks Remains paranoid and seclusive. Does not socialize with peers. Does not feel his medication is working adequately yet. Review of Systems ROS Limitations: Psychotic Objective Alert: Yes [place]: Person, Place, Date Mood: Anxious Affect: Restricted Memory Intact: Immediate, Recent, Remote Hallucinations: Auditory Delusions: Yes Delusion Type: Paranoid Suicidal: Ideation (denies) Homicidal: Ideation (denies) Insight/Judgment Impaired Vitals/IOs Vital Signs Date Time Temp Pulse Resp B/P Pulse Ox O2 Delivery O2 Flow Rate FiO2 07/01/16 06:24 97.7 70 16 127/74 97 Assessment & Plan Problem List: (1) Schizophrenia, paranoid, chronic with acute exacerbation ICD Code: F20.0 (2) Marijuana abuse ICD Code: F12.10 Assessment & Plan Estimated LOS: 3 days needs more time on current medicines to quell his anxiety and paranoia. Justification for Cont. Inpt. Likely to decompensate at lower level of care. Clayton Nath MD July 01, 2016 13:30
[2016-07-01 18:45] VITALS: BP 132/78; PULSE 83; RESP 16; TEMP 98.6; O2SAT 97
[2016-07-01] MEDS: ARIPiprazole 5 MG TAB PO SCH (21:08)
[2016-07-01] MEDS: traZODone HCL 100 MG TAB PO SCH (21:08)
[2016-07-02 05:10] VITALS: BP 113/60; PULSE 71; RESP 16; TEMP 97.8; O2SAT 98
[2016-07-02] MEDS: PROPRANOLOL HCL 10 MG TAB PO SCH ×3 (06:07→22:06)
[2016-07-02] MEDS: VENLAFAXINE HCL XR 75 MG CAP PO SCH (08:41)
[2016-07-02] MEDS: risperiDONE 3 MG TAB PO SCH ×2 (08:41→22:06)
[2016-07-02] MEDS: BENZTROPINE MESYLATE 1 MG TAB PO SCH ×2 (08:42→22:06)
--- NOTE | 2016-07-02 15:04 | HHI.PYPN ---
Subjective Remarks Patient was seen and case discussed with nursing. Patient is pleasant and cooperative with exam. Largely seclusive to room. Is in behaving well on the unit. Compliant with medications. Continues to have auditory hallucinations telling him that his can harm him. Continues to have a fixed delusion that somebody is controlling him behind a computer. Denies suicidal ideation intent or plan Objective Alert: Yes [place]: Person, Place, Date Mood: Anxious Affect: Blunted Memory Intact: Immediate, Recent, Remote Hallucinations: Auditory (that somebody wants to harm him) Delusions: Yes Delusion Type: Paranoid (somebody behind a computers controlling him) Suicidal: Ideation (denies) Homicidal: Ideation (denies) Insight/Judgment Poor Vitals/IOs Vital Signs Date Time Temp Pulse Resp B/P Pulse Ox O2 Delivery O2 Flow Rate FiO2 07/02/16 05:10 97.8 71 16 113/60 98 Assessment & Plan Problem List: (1) Schizophrenia, paranoid, chronic with acute exacerbation ICD Code: F20.0 (2) Marijuana abuse ICD Code: F12.10 Assessment & Plan Continue current treatment plan Justification for Cont. Inpt. Patient will decompensate in a less restrictive setting Rolf Jones DO July 02, 2016 15:04
[2016-07-02 17:54] VITALS: BP 118/74; PULSE 80; RESP 16; TEMP 97.9; O2SAT 99
[2016-07-02] MEDS: ARIPiprazole 5 MG TAB PO SCH (22:06)
[2016-07-02] MEDS: traZODone HCL 100 MG TAB PO SCH (22:06)
[2016-07-03 05:41] VITALS: BP 125/73; PULSE 78; RESP 18; TEMP 97; O2SAT 98
[2016-07-03] MEDS: PROPRANOLOL HCL 10 MG TAB PO SCH ×3 (06:34→21:58)
[2016-07-03] MEDS: VENLAFAXINE HCL XR 75 MG CAP PO SCH (09:22)
[2016-07-03] MEDS: BENZTROPINE MESYLATE 1 MG TAB PO SCH ×2 (09:22→21:58)
[2016-07-03] MEDS: risperiDONE 3 MG TAB PO SCH ×2 (09:22→21:58)
--- NOTE | 2016-07-03 13:41 | HHI.PYPN ---
Subjective Remarks Patient was seen and case discussed with nursing. Per staff patient is not sleeping well but patient says that he is. Auditory hallucinations are becoming less intense and are now "in the background." They continued to be related to fixed delusion that somebody is controlling him behind a computer. There is a possibility that this is the patient's baseline psychosis has he says is never been better than this. Objective Alert: Yes [place]: Person, Place, Date Mood: Anxious Affect: Restricted Memory Intact: Immediate, Recent, Remote Hallucinations: Auditory (that somebody wants to harm him) Delusions: Yes Delusion Type: Paranoid (somebody behind a computers controlling him) Suicidal: Ideation (denies) Homicidal: Ideation (denies) Insight/Judgment Fair Vitals/IOs Vital Signs Date Time Temp Pulse Resp B/P Pulse Ox O2 Delivery O2 Flow Rate FiO2 07/03/16 05:41 97.0 78 18 125/73 98 Assessment & Plan Problem List: (1) Schizophrenia, paranoid, chronic with acute exacerbation ICD Code: F20.0 (2) Marijuana abuse ICD Code: F12.10 Assessment & Plan Continue current treatment plan Justification for Cont. Inpt. Patient will decompensate in a less restrictive setting Rolf Jones DO July 03, 2016 13:41
[2016-07-03 21:29] VITALS: BP 120/77; PULSE 73; RESP 17; TEMP 98.8; O2SAT 98
[2016-07-03] MEDS: traZODone HCL 100 MG TAB PO SCH (21:57)
[2016-07-03] MEDS: ARIPiprazole 5 MG TAB PO SCH (21:58)
[2016-07-04] MEDS: PROPRANOLOL HCL 10 MG TAB PO SCH ×4 (05:55→22:27)
[2016-07-04 06:15] VITALS: BP 106/59; PULSE 84; RESP 16; TEMP 98
[2016-07-04] MEDS: BENZTROPINE MESYLATE 1 MG TAB PO SCH ×2 (09:00→20:29)
[2016-07-04] MEDS: VENLAFAXINE HCL XR 75 MG CAP PO SCH (09:00)
[2016-07-04] MEDS: risperiDONE 3 MG TAB PO SCH ×2 (09:00→20:29)
--- NOTE | 2016-07-04 12:24 | HHI.PYPN ---
Subjective Remarks Patient continues to complain of paranoia and auditory hallucinations. He remains reclusive and often times can be found in bed. His insight is adequate but medicines do not appear to be helping very much, despite being on high doses of Risperdal. Review of Systems ROS Limitations: Psychotic Objective Alert: Yes [place]: Person, Place, Date Mood: Anxious Affect: Restricted Memory Intact: Immediate, Recent, Remote Hallucinations: Auditory (that somebody wants to harm him) Delusions: Yes Delusion Type: Paranoid (somebody behind a computers controlling him) Suicidal: Ideation (denies) Homicidal: Ideation (denies) Insight/Judgment Impaired Vitals/IOs Vital Signs Date Time Temp Pulse Resp B/P Pulse Ox O2 Delivery O2 Flow Rate FiO2 07/04/16 06:15 98.0 84 16 106/59 07/03/16 21:29 98 Assessment & Plan Problem List: (1) Schizophrenia, paranoid, chronic with acute exacerbation ICD Code: F20.0 (2) Marijuana abuse ICD Code: F12.10 Assessment & Plan Estimated LOS: 3-4 days this physician has urged a change of antipsychotic medication but the patient does not want to do so. Therefore this physician plans to discuss adding a second antipsychotic such as Clozaril. Justification for Cont. Inpt. Psychotic and likely to decompensate at lower level of care. Clayton Nath MD July 04, 2016 12:24
[2016-07-04 18:00] VITALS: BP 116/77; PULSE 84; RESP 17; TEMP 98.1; O2SAT 97
[2016-07-04] MEDS: traZODone HCL 100 MG TAB PO SCH (20:29)
[2016-07-04] MEDS: ARIPiprazole 5 MG TAB PO SCH (20:29)
[2016-07-05 04:37] VITALS: BP 125/75; PULSE 87; RESP 18; TEMP 97.6; O2SAT 98
[2016-07-05] MEDS: PROPRANOLOL HCL 10 MG TAB PO SCH ×3 (06:16→21:36)
[2016-07-05] MEDS: risperiDONE 3 MG TAB PO SCH ×2 (09:09→21:36)
[2016-07-05] MEDS: BENZTROPINE MESYLATE 1 MG TAB PO SCH ×2 (09:09→21:34)
[2016-07-05] MEDS: VENLAFAXINE HCL XR 75 MG CAP PO SCH (09:09)
--- NOTE | 2016-07-05 10:54 | HHI.PYPN ---
Subjective Remarks Remains paranoid and reclusive. He does not socialize with peers and interacts only minimally with staff. Review of Systems Except as stated in HPI: all other systems reviewed are Neg Objective Alert: Yes [place]: Person, Place, Date Mood: Anxious Affect: Restricted Memory Intact: Immediate, Recent, Remote Hallucinations: Auditory (that somebody wants to harm him) Delusions: Yes Delusion Type: Paranoid (somebody behind a computers controlling him) Suicidal: Ideation (denies) Homicidal: Ideation (denies) Insight/Judgment Remains impaired. Vitals/IOs Vital Signs Date Time Temp Pulse Resp B/P Pulse Ox O2 Delivery O2 Flow Rate FiO2 07/05/16 04:37 97.6 87 18 125/75 98 Assessment & Plan Problem List: (1) Schizophrenia, paranoid, chronic with acute exacerbation ICD Code: F20.0 (2) Marijuana abuse ICD Code: F12.10 Assessment & Plan Estimated LOS: 5 days patient continues to need more time to respond to antipsychotic medication. Justification for Cont. Inpt. Paranoid delusions and unable to care for self. Clayton Nath MD July 05, 2016 10:54
[2016-07-05] MEDS: MAGNESIUM HYDROXIDE SUSP 30 ML CUP PO PRN (11:57)
[2016-07-05] MEDS: ACETAMINOPHEN 325 MG TAB PO PRN (14:41)
[2016-07-05 18:00] VITALS: BP 110/78; PULSE 78; RESP 18; TEMP 97.5; O2SAT 97
[2016-07-05 18:02] VITALS: BP 110/78; PULSE 78; RESP 18; TEMP 97.5; O2SAT 97
[2016-07-05] MEDS: ARIPiprazole 5 MG TAB PO SCH (21:36)
[2016-07-05] MEDS: traZODone HCL 100 MG TAB PO SCH (21:36)
[2016-07-06] MEDS: PROPRANOLOL HCL 10 MG TAB PO SCH ×3 (05:15→20:41)
[2016-07-06 05:46] VITALS: BP 144/85; PULSE 81; RESP 17; TEMP 97.6
[2016-07-06] MEDS: VENLAFAXINE HCL XR 75 MG CAP PO SCH (09:16)
[2016-07-06] MEDS: BENZTROPINE MESYLATE 1 MG TAB PO SCH ×2 (09:16→20:41)
[2016-07-06] MEDS: risperiDONE 3 MG TAB PO SCH ×2 (09:16→20:41)
[2016-07-06 17:26] VITALS: BP 124/74; PULSE 80; RESP 17; TEMP 98.2; O2SAT 97
[2016-07-06 18:00] VITALS: BP 124/79; PULSE 80; RESP 17; TEMP 98.2; O2SAT 97
[2016-07-06] MEDS: ARIPiprazole 5 MG TAB PO SCH (20:41)
[2016-07-06] MEDS: traZODone HCL 100 MG TAB PO SCH (20:41)
[2016-07-07 05:40] VITALS: BP 134/80; PULSE 77; RESP 18; TEMP 98.5; O2SAT 99
[2016-07-07] MEDS: PROPRANOLOL HCL 10 MG TAB PO SCH ×3 (06:04→21:21)
[2016-07-07] MEDS: risperiDONE 3 MG TAB PO SCH ×2 (08:43→21:21)
[2016-07-07] MEDS: BENZTROPINE MESYLATE 1 MG TAB PO SCH ×2 (08:43→21:21)
[2016-07-07] MEDS: VENLAFAXINE HCL XR 75 MG CAP PO SCH (08:43)
--- NOTE | 2016-07-07 14:04 | HHI.PYPN ---
Subjective Remarks Continues to be paranoid and reclusive. Review of Systems Except as stated in HPI: all other systems reviewed are Neg Objective Alert: Yes [place]: Person, Place, Date Mood: Anxious Affect: Restricted Memory Intact: Immediate, Recent, Remote Hallucinations: Auditory (that somebody wants to harm him) Delusions: Yes Delusion Type: Paranoid (somebody behind a computers controlling him) Suicidal: Ideation (denies) Homicidal: Ideation (denies) Insight/Judgment Impaired Vitals/IOs Vital Signs Date Time Temp Pulse Resp B/P Pulse Ox O2 Delivery O2 Flow Rate FiO2 07/07/16 05:40 98.5 77 18 134/80 99 Assessment & Plan Problem List: (1) Schizophrenia, paranoid, chronic with acute exacerbation ICD Code: F20.0 (2) Marijuana abuse ICD Code: F12.10 Assessment & Plan Estimated LOS: 5 days continue to stabilize on antipsychotic medicine. Justification for Cont. Inpt. Likely to decompensate a lower level of care. Clayton Nath MD July 07, 2016 14:04
[2016-07-07 20:08] VITALS: BP 129/69; PULSE 78; RESP 17; TEMP 98.1; O2SAT 97
[2016-07-07] MEDS: ARIPiprazole 5 MG TAB PO SCH (21:20)
[2016-07-07] MEDS: traZODone HCL 100 MG TAB PO SCH (21:21)
[2016-07-07] MEDS: MAGNESIUM HYDROXIDE SUSP 30 ML CUP PO PRN (21:24)
[2016-07-08 06:06] VITALS: BP 119/69; PULSE 71; RESP 18; TEMP 98; O2SAT 99
[2016-07-08] MEDS: PROPRANOLOL HCL 10 MG TAB PO SCH ×3 (06:15→21:03)
[2016-07-08] MEDS: VENLAFAXINE HCL XR 75 MG CAP PO SCH (08:16)
[2016-07-08] MEDS: risperiDONE 3 MG TAB PO SCH ×2 (08:16→20:18)
[2016-07-08] MEDS: BENZTROPINE MESYLATE 1 MG TAB PO SCH ×2 (08:16→20:18)
--- NOTE | 2016-07-08 14:07 | HHI.PYPN ---
Subjective Remarks Patient seen and examined with Chino MARTINO. Chart reviewed. Case discussed with RN who reports patient has been no behavioral problem. On my examination today , patient relates that he typically hears voices providing running commentary on his day but a month or so ago these voices became "evil" and were commanding that he self-injure. These voices have improved with treatment on the unit, and patient denies AH so far today. He denies SI/HI. He is pleased with his current psychotropic regimen and is tolerating this well without side effects. He declines any further medication management at this time. Counselor reports that she is looking for SHELTER for pt, and pt tells me he is agreeable to placement. Review of Systems ROS Limitations: Poor Historian Except as stated in HPI: all other systems reviewed are Neg Objective Alert: Yes [place]: Person, Place, Date Mood: Calm Affect: Blunted (tending toward flat) Memory Intact: Comment (Not formally assessed) Hallucinations: Other (Denies AVH so far today) Delusions: No Delusion Type: Other (No delusions elicited) Suicidal: Ideation (Denies SI) Homicidal: Ideation (Denies HI) Insight/Judgment Poor Remarks No motor abnormalities noted. TP linear. Speech wnl for rate, tone, volume. Labs Labs reviewed. Vitals/IOs Vital Signs Date Time Temp Pulse Resp B/P Pulse Ox O2 Delivery O2 Flow Rate FiO2 07/08/16 06:06 98.0 71 18 119/69 99 Assessment & Plan Problem List: (1) Schizophrenia, paranoid, chronic with acute exacerbation ICD Code: F20.0 (2) Marijuana abuse ICD Code: F12.10 Assessment & Plan Continue current psychotropics as ordered. Continue to monitor on inpatient unit. Continue other meds and care as ordered. Justification for Cont. Inpt. High risk for decompensation in a less restrictive setting. Discharge Planning Per Dr. Nath. Counselor informs me plan is for placement. Request HC Surrog/Guard Advoc?: No (Pt is listed as voluntary) Shailesh England MD July 08, 2016 14:07
[2016-07-08 18:00] VITALS: BP 121/82; PULSE 83; RESP 18; TEMP 97.3; O2SAT 98
[2016-07-08] MEDS: traZODone HCL 100 MG TAB PO SCH (20:18)
[2016-07-08] MEDS: ARIPiprazole 5 MG TAB PO SCH (20:18)
[2016-07-08] MEDS: MAGNESIUM HYDROXIDE SUSP 30 ML CUP PO PRN (21:03)
[2016-07-09 05:31] VITALS: BP 110/65; PULSE 79; RESP 18; TEMP 98.2; O2SAT 96
[2016-07-09 06:15] VITALS: BP 132/66; PULSE 83; RESP 16
[2016-07-09] MEDS: PROPRANOLOL HCL 10 MG TAB PO SCH ×3 (06:21→21:57)
[2016-07-09] MEDS: VENLAFAXINE HCL XR 75 MG CAP PO SCH (08:32)
[2016-07-09] MEDS: risperiDONE 3 MG TAB PO SCH ×2 (08:32→21:46)
[2016-07-09] MEDS: BENZTROPINE MESYLATE 1 MG TAB PO SCH ×2 (08:32→21:46)
--- NOTE | 2016-07-09 11:47 | HHI.PYPN ---
Subjective Remarks Patient seen and examined with nurse in weekend coverage. Chart reviewed. Case discussed with nursing staff who reports that the patient has been seclusive to room. Patient told nurse that he was experiencing frightening auditory hallucinations threatening to "murder him" overnight. On my examination today, the patient confirms that this was so. No command auditory hallucinations. He says that he is never completely relieved that his auditory hallucinations, but, as we had discussed yesterday, they are usually much more benign. He did perceive the auditory hallucinations he was experiencing last night as quite frightening and would like to adjust medications to bring this symptom under better control. He denies any suicidal or homicidal ideation. He denies any side effects from medications. He has no physical complaints. Review of Systems ROS Limitations: Psychotic, Poor Historian Except as stated in HPI: all other systems reviewed are Neg Objective Alert: Yes [place]: Person, Place, Date Mood: Calm Affect: Blunted Memory Intact: Comment (Not formally assessed) Hallucinations: Auditory (voices overnight threatening to murder patient) Delusions: No Delusion Type: Other (No delusional material) Suicidal: Ideation (Denies SI) Homicidal: Ideation (Denies HI) Insight/Judgment Poor Remarks No motor abnormalities noted. Thought processes fairly linear. Labs Labs reviewed. No new labs. Vitals/IOs Vital Signs Date Time Temp Pulse Resp B/P Pulse Ox O2 Delivery O2 Flow Rate FiO2 07/09/16 06:15 83 16 132/66 07/09/16 05:31 98.2 96 Assessment & Plan Problem List: (1) Schizophrenia, paranoid, chronic with acute exacerbation ICD Code: F20.0 (2) Marijuana abuse ICD Code: F12.10 Assessment & Plan Titrate Abilify to 10 mg at bedtime. Risks, benefits and alternatives of this approach discussed with patient. Continue other psychotropics as ordered. Continue to monitor on the inpatient unit. Continue other medications and care as ordered. Justification for Cont. Inpt. Medication changes in process. Impairment in reality construction. High risk for decompensation in a less restrictive environment. Discharge Planning Per Dr. Nath Request HC Surrog/Guard Advoc?: No Shailesh England MD July 09, 2016 11:47
[2016-07-09 18:03] VITALS: BP 114/71; PULSE 72; RESP 18; TEMP 98.4; O2SAT 97
[2016-07-09] MEDS ORDERED: ARIPiprazole 10 MG TAB PO SCH (21:00)
[2016-07-09] MEDS: traZODone HCL 100 MG TAB PO SCH (21:45)
[2016-07-10 04:53] VITALS: BP 118/66; PULSE 72; RESP 18; TEMP 98; O2SAT 97
[2016-07-10] MEDS: PROPRANOLOL HCL 10 MG TAB PO SCH ×3 (05:59→21:32)
[2016-07-10] MEDS: VENLAFAXINE HCL XR 75 MG CAP PO SCH (09:36)
[2016-07-10] MEDS: BENZTROPINE MESYLATE 1 MG TAB PO SCH ×2 (09:36→21:32)
[2016-07-10] MEDS: risperiDONE 3 MG TAB PO SCH ×2 (09:36→21:32)
[2016-07-10 15:42] VITALS: BP 111/70; PULSE 84; RESP 18; TEMP 100; O2SAT 97
[2016-07-10 20:00] VITALS: BP 111/70; PULSE 84; RESP 18; TEMP 100; O2SAT 97
[2016-07-10] MEDS: traZODone HCL 100 MG TAB PO SCH (21:31)
--- NOTE | 2016-07-10 21:31 | HHI.PYPN ---
Subjective Remarks Patient see for reevaluation this morning, found in his room, calm and cooperative, reports fair mood, denies depression and anxiety, still hearing voices calling his name, but decreased in severity, intensity and frequency. Denies paranoia, says he feels safe and comfortable in the unit. Oriented X3m compliant with medications, no significant side effects. Review of Systems Other No somatic complains Objective Alert: Yes [place]: Person, Place, Date Mood: Calm Affect: Blunted Memory Intact: Comment (Not formally assessed) Hallucinations: Auditory (Distant voices, calling his name) Delusions: No Delusion Type: Other (No delusional material) Suicidal: Ideation (Denies SI) Homicidal: Ideation (Denies HI) Insight/Judgment Fair Vitals/IOs Vital Signs Date Time Temp Pulse Resp B/P Pulse Ox O2 Delivery O2 Flow Rate FiO2 07/10/16 15:42 100.0 84 18 111/70 97 Assessment & Plan Problem List: (1) Schizophrenia, paranoid, chronic with acute exacerbation Assessment & Plan: will increase Abilify to 15 mg for psychosis. ICD Code: F20.0 (2) Marijuana abuse ICD Code: F12.10 Assessment & Plan Estimated LOS: days Justification for Cont. Inpt. Patient has increased chance to decompensate out of impatient structure Request HC Surrog/Guard Advoc?: No Allan Thakur MD July 10, 2016 21:31
[2016-07-10] MEDS: ARIPiprazole 10 MG TAB PO SCH (22:15)
[2016-07-11] MEDS: PROPRANOLOL HCL 10 MG TAB PO SCH ×3 (05:12→21:12)
[2016-07-11 06:00] VITALS: BP 123/72; PULSE 72; RESP 18; TEMP 98.4; O2SAT 97
[2016-07-11] MEDS: BENZTROPINE MESYLATE 1 MG TAB PO SCH ×2 (08:43→21:12)
[2016-07-11] MEDS: risperiDONE 3 MG TAB PO SCH ×2 (08:44→21:12)
[2016-07-11] MEDS: VENLAFAXINE HCL XR 75 MG CAP PO SCH (08:44)
[2016-07-11 18:00] VITALS: BP 110/77; PULSE 118; RESP 18; TEMP 97; O2SAT 98
[2016-07-11] MEDS: ARIPiprazole 10 MG TAB PO SCH (21:11)
[2016-07-11] MEDS: traZODone HCL 100 MG TAB PO SCH (21:12)
[2016-07-12 05:48] VITALS: BP 136/76; PULSE 84; RESP 18; TEMP 98.5; O2SAT 98
[2016-07-12] MEDS: PROPRANOLOL HCL 10 MG TAB PO SCH ×3 (06:03→21:41)
[2016-07-12] MEDS: VENLAFAXINE HCL XR 75 MG CAP PO SCH (08:19)
[2016-07-12] MEDS: BENZTROPINE MESYLATE 1 MG TAB PO SCH ×2 (08:19→21:03)
[2016-07-12] MEDS: risperiDONE 3 MG TAB PO SCH ×2 (08:19→21:03)
--- NOTE | 2016-07-12 15:16 | HHI.PYPN ---
Subjective Remarks Patient seen today in [place] with nurse, chart review, patient calm cooperative me states the voices are markedly diminished in frequency intensity and duration. States he has heard voices in some manner continuously since fairly 1999. For now continue treatment he denies suicidality homicidality Review of Systems Except as stated in HPI: all other systems reviewed are Neg Objective Alert: Yes [place]: Person, Place, Date Mood: Calm Affect: Blunted Memory Intact: Comment (Not formally assessed) Hallucinations: Auditory (Distant voices, calling his name) Delusions: No Delusion Type: Other (No delusional material) Suicidal: Ideation (Denies SI) Homicidal: Ideation (Denies HI) Insight/Judgment Poor Vitals/IOs Vital Signs Date Time Temp Pulse Resp B/P Pulse Ox O2 Delivery O2 Flow Rate FiO2 07/12/16 05:48 98.5 84 18 136/76 98 Assessment & Plan Problem List: (1) Schizophrenia, paranoid, chronic with acute exacerbation ICD Code: F20.0 (2) Marijuana abuse ICD Code: F12.10 Assessment & Plan Estimated LOS: days patient calm cooperative acknowledges voices though they appear to be not intrusive at this time. Denying suicidality homicidality. For now continue treatment Justification for Cont. Inpt. At this time patient will decompensate if placed in a lower level of care Discharge Planning To be determined Request HC Surrog/Guard Advoc?: No Waldo Ulloa MD July 12, 2016 15:15
[2016-07-12 18:15] VITALS: BP 107/78; PULSE 95; RESP 16; TEMP 97.1; O2SAT 96
[2016-07-12 20:33] VITALS: BP 105/67; PULSE 84
[2016-07-12] MEDS: traZODone HCL 100 MG TAB PO SCH (21:03)
[2016-07-12] MEDS: ARIPiprazole 10 MG TAB PO SCH (21:03)
[2016-07-13] MEDS: PROPRANOLOL HCL 10 MG TAB PO SCH ×2 (06:23→14:00)
[2016-07-13 06:29] VITALS: BP 129/75; PULSE 75; RESP 18; TEMP 98.3; O2SAT 94
[2016-07-13] MEDS: BENZTROPINE MESYLATE 1 MG TAB PO SCH (08:39)
[2016-07-13] MEDS: VENLAFAXINE HCL XR 75 MG CAP PO SCH (08:39)
[2016-07-13] MEDS: risperiDONE 3 MG TAB PO SCH (08:39)
[2016-07-13] MEDS ORDERED: PROP10TA6 PO (13:06)
[2016-07-13] MEDS ORDERED: BENZ1TAB PO (13:06)
[2016-07-13] MEDS ORDERED: ABIL15TA2 PO (13:06)
[2016-07-13] MEDS ORDERED: EFFE150C PO (13:06)
[2016-07-13] MEDS ORDERED: RISP3 PO (13:06)
[2016-07-13] MEDS ORDERED: TRAZ100T4 PO (13:06)
--- NOTE | 2016-07-13 13:12 | HHI.DS ---
Psychiatry Discharge Summary Inpatient Psychiatric care?: Yes Advance Directive: No Reason Not Provided: Declined Mental Health AdvanceDirective: No Health Care Proxy: No Admission Admission Date Jun 25, 2016 at 10:05 Admission Diagnosis: (1) Schizophrenia, paranoid, chronic with acute exacerbation ICD Code: F20.0 Brief History The patient is a 51-year-old man, domiciled alone in [place], single, unemployed, supported by [facility], with a History of schizophrenia, anxiety, depression, cannabis use disorder, known by service, 3 previous psychiatric hospitalizations, the last hospitalization was here at [facility] under the care of Dr. Ulloa, he was just discharged on June 16, he was just discharged 3 days ago, he has no previous suicidal attempts, he sees in outpatient to the nurse practitioner Nadja Dela Cruz, he is on Abilify 30 mg, Risperdal 3 mg twice a day, Effexor 150 mg, trazodone 400 mg at bedtime, no significant medical history, who presented to the ED under García act for psychiatric evaluation due to auditory hallucinations. Patient states that he has been feeling paranoid and hearing voices that tell him that someone is trying to harm him for ~ 6 days. He also admits to seeing shadows in the corners of his vision that sleeve turner to be nothing. States that he locked himself in his room for the last 6 days with very little to eat or drink. On the ER patient was found with a mild UTI, was treated with antibiotics. On psychiatric evaluation in the unit patient is calm, cooperative, but seem to be restless, with continuous bilateral leg movement. Patient explains that he was discharged about a week ago from the hospital, he was doing fine for a couple days, but in the last 5-6 days voices and paranoia have come back, he has been trying to ignore his voices and the paranoia of being followed "by people that want to kill me, and also cut my neck". He says that he has an obsessive Thought of people the will come when he is not aware and will cut his neck. He says that at moments he becomes extremely afraid and is difficult for him to convince his brain that this is not true, but most of the time he have a good insight. He also reports hearing voices telling him to kill himself. He denies suicidal and homicidal ideation, he reports ok mood, denies anxiety, nausea. Patient denies the use of drugs and alcohol. He smokes about 1-1/2 package of cigarettes per day and uses marijuana occasionally, he denies alcohol and other illicit drugs use. Tobacco Use In Past 30 Days: 5 or More Cigarettes/Day Alcohol Use: Never Hospital Course Patient's hospital course uneventful calmer show compliance with medication from early in his stay. While there is some isolation towards the past few days he showed increased socialization and cooperation. Patient seen today denies suicidality homicidality voices or visions. Is compliant with medications. At this time patient reached maximum benefit of this hospitalization. [facility] is accepted patient today. Patient to be discharged today to [facility] Rx 1 month follow-up for [facility] outpatient medication services Results Blood Pressure 129 / 75 Vital Signs Date Time Temp Pulse Resp B/P Pulse Ox O2 Delivery O2 Flow Rate FiO2 07/13/16 06:29 98.3 75 18 129/75 94 Urine toxicology positive for marijuana Summary of Procedures None done Pending results at discharge: No Medications # of Antipsychotic meds at D/C: 2 Appropriate >1 Antipsych meds?: 2 (patient showed improvement with the addition of the daily Respinol, would recommend gradual taper of the Abilify by the outpatient clinician) Approp Antipsych med options 1 - Minimum of three failed multiple trials of monotherapy. 2 - Documented plan to taper to monotherapy due to previous use of multiple meds OR cross-taper in progress at D/C. 3 - Documentation of augmentation of Clozapine. 4 - Justification other than those listed in allowable values 1-3, document here : Discharge Discharge Date: July 13, 2016 Discharge Diagnosis: (1) Schizophrenia, paranoid, chronic with acute exacerbation Diagnosis: Principal ICD Code: F20.0 Mental Status Exam at Disch Alert oriented white male calm cooperative with me he is normal active, speech rate and rhythm are somewhat slow though goal oriented, no formal thought disorders. Mood euthymic to somewhat restrictive slight decreased range and intensity. Auditory visual hallucinations noted no delusions noted though the some mild vigilance. Insight and judgment is poor to fair cognition grossly Pt Condition on Discharge: Stable Discharge Disposition: [facility]/NURSING HOME Discharge Instructions Diet Instructions: As Tolerated, No Restrictions Activities you can perform: Regular-No Restrictions Scheduled Appointment: Nehemias Carter Appointment Date: July 18, 2016 Appointment Time: 7:30am Discharge Time > 30 minutes Discharge/Advance Care Plan Health Problems: (1) Schizophrenia, paranoid, chronic with acute exacerbation (2) Marijuana abuse Goals to promote your health * To prevent worsening of your condition and complications * To maintain your health at the optimal level Directions to meet your goals Take your medications as prescribed Follow your dietary instruction Follow activity as directed Keep your appointments as scheduled Take your immunizations and boosters as scheduled If your symptoms worsen call your PCP, if no PCP go to Urgent Care Center or Emergency Room For 19/09 questions related to your inpatient stay or results of tests pending at discharge, please contact Dr. Waldo Ulloa at Smoking is Dangerous to Your Health. Avoid second hand smoking Waldo Ulloa MD July 13, 2016 13:12
--- NOTE | 2016-07-18 09:55 | HHI.PYPN ---
Subjective Remarks This is the progress note for June 29, 2016. Patient remains very paranoid and feels patients and staff are plotting against him. Reports hearing voices that are critical of him. Socially he is withdrawn and dejected. He does not feel the medicines are working yet. Review of Systems Except as stated in HPI: all other systems reviewed are Neg Objective Alert: Yes [place]: Person, Place, Date Mood: Anxious Affect: Restricted, Blunted Memory Intact: Comment (Not formally assessed) Hallucinations: Auditory (Distant voices, calling his name) Delusions: No Delusion Type: Paranoid, Other (No delusional material) Suicidal: Ideation (Denies SI) Homicidal: Ideation (Denies HI) Insight/Judgment Impaired Assessment & Plan Problem List: (1) Schizophrenia, paranoid, chronic with acute exacerbation ICD Code: F20.0 (2) Marijuana abuse ICD Code: F12.10 Assessment & Plan Estimated LOS: 5 days patient needs more time for medication to work. He remains on 2 antipsychotics at this time, trying to control his paranoid delusions as well as his auditory hallucinations. Justification for Cont. Inpt. Likely to decompensate at lower level of care. Request HC Surrog/Guard Advoc?: No Clayton Nath MD July 18, 2016 09:55
--- NOTE | 2016-07-18 09:58 | HHI.PYPN ---
Subjective Remarks This is the psychiatric progress note for July 06, 2016. Patient remains paranoid and stays in his room most of the time. He stays away from his peers and does not like to attend group therapies. He continues to admit to auditory hallucinations, which are critical of him, but they occur intermittently. Review of Systems Except as stated in HPI: all other systems reviewed are Neg Objective Alert: Yes [place]: Person, Place, Date Mood: Anxious Affect: Restricted, Blunted Memory Intact: Comment (Not formally assessed) Hallucinations: Auditory (Distant voices, calling his name) Delusions: No Delusion Type: Paranoid, Other (No delusional material) Suicidal: Ideation (Denies SI) Homicidal: Ideation (Denies HI) Insight/Judgment Impaired Assessment & Plan Problem List: (1) Schizophrenia, paranoid, chronic with acute exacerbation ICD Code: F20.0 (2) Marijuana abuse ICD Code: F12.10 Assessment & Plan Estimated LOS: 5 days patient continues to warrant hospitalization with titration of antipsychotic medication as needed. Medications have not proven very effective thus far but will be given more time. Justification for Cont. Inpt. Patient remains at high risk for suicide due to auditory hallucinations denigrating him. Request HC Surrog/Guard Advoc?: No Clayton Nath MD July 18, 2016 09:57
--- NOTE | 2016-07-25 12:50 | HHI.PYPN ---
Subjective Remarks This is the psychiatric progress note for July 11, 2016. Patient continues to be paranoid and feels both staff and peers are plotting against him. He has a great deal of difficulty socializing outside of his room. He remains reclusive and in bed. Review of Systems ROS Limitations: Psychotic Except as stated in HPI: all other systems reviewed are Neg Objective Alert: Yes [place]: Person, Place, Date Mood: Anxious Affect: Restricted, Blunted Memory Intact: Comment (Not formally assessed) Hallucinations: Auditory (Distant voices, calling his name) Delusions: No Delusion Type: Paranoid, Other (No delusional material) Suicidal: Ideation (Denies SI) Homicidal: Ideation (Denies HI) Insight/Judgment Impaired Assessment & Plan Problem List: (1) Schizophrenia, paranoid, chronic with acute exacerbation ICD Code: F20.0 (2) Marijuana abuse ICD Code: F12.10 Assessment & Plan Estimated LOS: 5 days patient continues to need time on antipsychotic therapy. He continues to report auditory hallucinations, of a command nature, telling him he is no good and to kill himself. Justification for Cont. Inpt. Likely to decompensate at lower level of care. Request HC Surrog/Guard Advoc?: No Clayton Nath MD July 25, 2016 12:50
[2016-08-03] MEDS ORDERED: CLON1 PO (10:04)
== END 2016-07-13 15:45 | DRG 885 ==
LOC: NEPJ 13:03 → NEDA 06-25 10:05 → H260 06-25 11:45
PROVIDERS: ADMIT Psychiatry & Neurology Psychiatry; ATTEND Psychiatry & Neurology Psychiatry
DX: F20.0 Paranoid schizophrenia (principal); G25.71 Drug induced akathisia; F32.9 Major depressive disorder, single episode, unspecified; F12.10 Cannabis abuse, uncomplicated; F17.210 Nicotine dependence, cigarettes, uncomplicated; Z81.8 Family history of other mental and behavioral disorders
CPT/HCPCS: 80053; 80061; 80307; 81001; 83036; 84443; 85025; 87086; 99284

== ENCOUNTER 2016-07-27 07:59 | Emergency (ER) | payer MEDICAID, OTHER ==
[~2016-07-27] VITALS: Ht 177.8 cm; Wt 95.0 kg
[~2016-07-27 07:59] MED LIST changes: +ABIL15TA2 PO; +BACT800T5 PO; +PROP10TA6 PO; +TRAZ100T4 PO
[2016-07-27 08:00] VITALS: BP 144/89; PULSE 97; RESP 20; TEMP 99.3; O2SAT 98
--- NOTE | 2016-07-27 08:21 | PD ---
HPI Chief Complaint: Psychiatric Symptoms Time Seen by Provider: 08:13 Travel History International Travel<30 days: No Contact w/Intl Traveler<30days: No Traveled to known affect area: No History of Present Illness HPI Patient is a 51-year-old male presents emergency department for evaluation of paranoid schizophrenia. Patient states she's had a history of this for a long time. States over the past 2 months she's been hearing voices and didn't very paranoid. He would lives in an assisted living facility and reports that he has been barricading himself in his room because he thinks somebody is trying to get him. He denies any suicidal homicidal ideation. Denies any visual hallucinations. Patient states he was seen here once before had his medications adjusted but is not working. States he follows with Dr. Nath when he is here but also fall [facility] act which she has not been since release from the hospital. He denies any physical complaints, denies any chest pain shortness breath abdominal pain nausea vomiting diarrhea headaches blurred vision or focalized weakness. PFSH Past Medical History Anxiety: Yes Depression: Yes Heart Rhythm Problems: No Cardiac Catheterization: No High Cholesterol: No Congestive Heart Failure: No Diabetes: No Diminished Hearing: No Endocrine: No Gastrointestinal Disorders: No Genitourinary: No Heparin Induced Thrombocytopen: No Hypertension: No Immune Disorder: No Implanted Vascular Access Dvce: No Musculoskeletal: No Neurologic: No Psychiatric: Yes (SCHIZOPHRENIA) Reproductive: No Respiratory: No Immunizations Current: Yes Myocardial Infarction: No Schizophrenia: Yes Seizures: No Past Surgical History Abdominal Surgery: No Cardiac Surgery: No Coronary Artery Bypass Graft: No Ear Surgery: No Endocrine Surgery: No Eye Surgery: No Genitourinary Surgery: No Neurologic Surgery: No Oral Surgery: Yes (TONSILECTOMY) Tonsillectomy: Yes Other Surgery: No Social History Alcohol Use: No Tobacco Use: Yes Substance Use: No Allergies-Medications (Allergen,Severity, Reaction): Coded Allergies: No Known Allergies (Verified , 06/17/16) Reported Meds & Prescriptions Reported Meds & Active Scripts Active Effexor XR 24 HR (Venlafaxine HCl) 150 Mg Cap 150 Mg PO DAILY Propranolol (Propranolol HCl) 10 Mg Tab 10 Mg PO Q8HR Benztropine (Benztropine Mesylate) 1 Mg Tab 1 Mg PO Q12HR Abilify (Aripiprazole) 15 Mg Tab 15 Mg PO HS Reported Risperidone 3 Mg Tab 3 Mg PO BID Trazodone (Trazodone HCl) 50 Mg Tab 400 Mg PO HS Review of Systems Except as stated in HPI: all other systems reviewed are Neg Physical Exam Narrative GENERAL: [Well-developed well-nourished, no apparent distress. SKIN: No rash no wound no bruising. HEAD: Atraumatic. Normocephalic. EYES: Pupils equal and round. No scleral icterus. No injection or drainage. ENT: No nasal bleeding or discharge. Mucous membranes pink and moist. NECK: Trachea midline. No JVD. No lymphadenopathy CARDIOVASCULAR: Regular rate and rhythm. No murmur appreciated. RESPIRATORY: No accessory muscle use. Clear to auscultation. Breath sounds equal bilaterally. GASTROINTESTINAL: Abdomen soft, non-tender, nondistended. Hepatic and splenic margins not palpable. MUSCULOSKELETAL: No obvious deformities. No clubbing. No cyanosis. No edema. NEUROLOGICAL: Awake and alert. No obvious cranial nerve deficits. Motor grossly within normal limits. Normal speech. PSYCHIATRIC: Endorses audio hallucinations, denies suicidal or homicidal ideation. States his been very paranoid recently. Calm and cooperative. Data Data Last Documented VS Vital Signs Date Time Temp Pulse Resp B/P Pulse Ox O2 Delivery O2 Flow Rate FiO2 07/27/16 13:09 98.8 81 18 129/89 96 Room Air Orders Complete Blood Count With Diff (07/27/16 08:18) Comprehensive Metabolic Panel (07/27/16 08:18) Psych Screen (07/27/16 08:18) Drug Screen, Random Urine (07/27/16 08:18) Alcohol (Ethanol) (07/27/16 08:18) Labs Laboratory Tests Test 07/27/16 07/27/16 08:25 08:30 White Blood Count 7.4 TH/MM3 Red Blood Count 4.91 MIL/MM3 Hemoglobin 15.4 GM/DL Hematocrit 43.6 % Mean Corpuscular Volume 88.6 FL Mean Corpuscular Hemoglobin 31.3 PG Mean Corpuscular Hemoglobin 35.3 % Concent Red Cell Distribution Width 13.3 % Platelet Count 98 TH/MM3 Mean Platelet Volume 8.6 FL Neutrophils (%) (Auto) 70.8 % Lymphocytes (%) (Auto) 19.9 % Monocytes (%) (Auto) 7.1 % Eosinophils (%) (Auto) 1.8 % Basophils (%) (Auto) 0.4 % Neutrophils # (Auto) 5.2 TH/MM3 Lymphocytes # (Auto) 1.5 TH/MM3 Monocytes # (Auto) 0.5 TH/MM3 Eosinophils # (Auto) 0.1 TH/MM3 Basophils # (Auto) 0.0 TH/MM3 CBC Comment AUTO DIFF Differential Comment AUTO DIFF CONFIRMED Platelet Estimate LOW Platelet Morphology Comment NORMAL Sodium Level 138 MEQ/L Potassium Level 3.8 MEQ/L Chloride Level 105 MEQ/L Carbon Dioxide Level 24.6 MEQ/L Anion Gap 8 MEQ/L Blood Urea Nitrogen 6 MG/DL Creatinine 0.93 MG/DL Estimat Glomerular Filtration 86 ML/MIN Rate Random Glucose 125 MG/DL Calcium Level 8.2 MG/DL Total Bilirubin 0.3 MG/DL Aspartate Amino Transf 18 U/L (AST/SGOT) Alanine Aminotransferase 61 U/L (ALT/SGPT) Alkaline Phosphatase 85 U/L Total Protein 6.4 GM/DL Albumin 3.3 GM/DL Ethyl Alcohol Level LESS THAN 3 MG/DL Urine Opiates Screen NEG Urine Barbiturates Screen NEG Urine Amphetamines Screen NEG Urine Benzodiazepines Screen NEG Urine Cocaine Screen NEG Urine Cannabinoids Screen NEG MDM Medical Decision Making Medical Screen Exam Complete: Yes Emergency Medical Condition: Yes Differential Diagnosis Paranoid schizophrenia, auditory hallucinations, psychosis, substance abuse. Narrative Course Patient was roomed in emergency department, has delusions of paranoia and auditory hallucinations but is not greatly disabled not a threat to himself or to others. He is calm and cooperative and understands his disease process. He would like to see a psychiatrist. He is on a voluntary status. Basic labs ordered as part of psychiatric protocol and are reassuring. He is medically stable for psychiatric evaluation and disposition. Diagnosis Primary Impression: Schizophrenia, paranoid, chronic with acute exacerbation Condition: Stable Angelito Downey MD July 27, 2016 08:21
[2016-07-27 08:44] LABS: AUTOMATED NEUTROPHIL # 5.2 TH/MM3 (1.8-7.7); BASOPHIL % 0.4 % (0.0-2.0); EOSINOPHIL # 0.1 TH/MM3 (0-0.4); EOSINOPHIL % 1.8 % (0.0-4.0); HEMATOCRIT 43.6 % (39.0-51.0); LYMPH % 19.9 % (9.0-44.0); LYMPHOCYTE # 1.5 TH/MM3 (1.0-4.8); MEAN CELL VOLUME 88.6 FL (80.0-100.0); MEAN CORPUSCULAR HEMOGLOBIN 31.3 PG (27.0-34.0); MEAN CORPUSCULAR HGB CONC 35.3 % (32.0-36.0); MONO % 7.1 % (0.0-8.0); NEUT % 70.8 % (16.0-70.0); PLATELET COUNT 98 TH/MM3 (150-450); RED BLOOD COUNT 4.91 MIL/MM3 (4.50-5.90); RED CELL DISTRIBUTION WIDTH 13.3 % (11.6-17.2); WHITE BLOOD COUNT 7.4 TH/MM3 (4.0-11.0)
[2016-07-27 08:48] LABS: HEMO FLAGS AUTO DIFF
[2016-07-27 08:53] LABS: AMPHETAMINE, URINE NEG (NEG); BARBITURATES, URINE NEG (NEG); COCAINE, URINE NEG (NEG)
[2016-07-27 09:23] LABS: ANION GAP 8 MEQ/L (5-15); BICARBONATE 24.6 MEQ/L (21.0-32.0); BLOOD UREA NITROGEN 6 MG/DL (7-18); CHLORIDE 105 MEQ/L (98-107); POTASSIUM 3.8 MEQ/L (3.5-5.1); SODIUM (NA) 138 MEQ/L (136-145)
[2016-07-27 09:26] LABS: PLATELET ESTIMATE SMEAR LOW (NORMAL); PLATELET MORPHOLOGY NORMAL (NORMAL); SCAN/DIFF AUTO DIFF CONFIRMED
[2016-07-27 09:28] LABS: AST (GOT) 18 U/L (15-37); GLOMERULAR FILTRATION RATE 86 ML/MIN (>89)
[2016-07-27 09:35] LABS: ALT (GPT) 61 U/L (12-78)
[2016-07-27 09:38] LABS: ALKALINE PHOSPHATASE 85 U/L (45-117); TOTAL BILIRUBIN ADULT 0.3 MG/DL (0.2-1.0)
[2016-07-27] MEDS ORDERED: TRAZ50TA12 PO (11:55)
[2016-07-27] MEDS ORDERED: RISP3TAB2 PO (11:55)
[2016-07-27 12:49] VITALS: BP 127/90; PULSE 83; RESP 16; TEMP 97.9; O2SAT 99
[2016-07-27 13:09] VITALS: BP 129/89; PULSE 81; RESP 18; TEMP 98.8; O2SAT 96
[2016-07-27 18:45] VITALS: BP 107/67; PULSE 87; RESP 18; O2SAT 98
[2016-07-27 22:00] VITALS: BP 166/84; PULSE 69; RESP 17; O2SAT 97
[2016-07-28 02:09] VITALS: BP 111/60; PULSE 85; RESP 18; O2SAT 97
[2016-07-28 06:29] VITALS: BP 136/70; PULSE 90; RESP 18; O2SAT 99
[2016-07-28 11:21] VITALS: BP 118/63; PULSE 86; RESP 18; O2SAT 96
[2016-07-28 14:56] VITALS: BP 137/77; PULSE 86; RESP 18; O2SAT 95
[2016-07-28] MEDS: clonazePAM 1 MG TAB PO SCH (20:59)
[2016-07-28 22:00] VITALS: BP 136/80; PULSE 84; RESP 19; O2SAT 98
[2016-07-29 02:24] VITALS: BP 137/85; PULSE 79; RESP 19; O2SAT 98
[2016-07-29 06:13] VITALS: BP 129/77; PULSE 71; RESP 19; O2SAT 95
[2016-07-29] MEDS: clonazePAM 1 MG TAB PO SCH ×2 (09:45→21:00)
[2016-07-29 10:47] VITALS: BP 103/55; PULSE 92; RESP 18
[2016-07-29 14:14] VITALS: BP 137/85; PULSE 93; RESP 18; O2SAT 95
--- NOTE | 2016-07-29 14:28 | PD ---
History of Present Illness Chief Complaint: Psychiatric Symptoms Time Seen by Provider: 14:00 Travel History International Travel<30 Days: No Contact w/Intl Traveler<30days: No Known affected area: No Legal Status Legal Status: Voluntary History of Present Illness: 51-year-old male well known to this physician, treated here by this physician for the last 2 days. Patient has a chronic history of paranoid schizophrenia with chronic auditory hallucinations telling him to harm himself, kill himself and negative things about himself. Unfortunately, he has been admitted several times in the past months, 4 weeks at a time, with treatment for his schizophrenia. These treatments have been minimally successful. Therefore this physician started the patient on Abilify maintain a here in the hospital emergency department and added Klonopin 2 mg every 12 hours for his anxiety and insomnia. The patient is feeling better today and wants to go home. He denies any suicidal or homicidal ideation, plan or intention. He does continue to have voices that say derogatory things to him and about him. However he is verbally quirino for safety and feels better after sleeping well last night. He has been on Abilify oral tablets 4 weeks and is getting his injection on the way out of the emergency department. He is also receiving a prescription for Klonopin. He knows this physician will be rehabilitation physician Monday and all next week. He is asked to return to the emergency department for further adjustment of medicines if he finds he cannot tolerate follow up as an outpatient. He agrees with this physician to try to prevent another hospitalization I adjusting his medicines on an outpatient basis. PFSH Past Medical History Anxiety: Yes Depression: Yes Heart Rhythm Problems: No Cardiac Catheterization: No High Cholesterol: No Congestive Heart Failure: No Diabetes: No Diminished Hearing: No Endocrine: No Gastrointestinal Disorders: No Genitourinary: No Heparin Induced Thrombocytopen: No Hypertension: No Immune Disorder: No Implanted Vascular Access Dvce: No Musculoskeletal: No Neurologic: No Psychiatric: Yes (SCHIZOPHRENIA) Reproductive: No Respiratory: No Immunizations Current: Yes Myocardial Infarction: No Schizophrenia: Yes Seizures: No Tetanus Vaccination: < 5 Years Past Surgical History Abdominal Surgery: No Cardiac Surgery: No Coronary Artery Bypass Graft: No Ear Surgery: No Endocrine Surgery: No Eye Surgery: No Genitourinary Surgery: No Neurologic Surgery: No Oral Surgery: Yes (TONSILECTOMY) Tonsillectomy: Yes Other Surgery: No Psychiatric History Psychiatric History Hx Psychiatric Treatment: Yes, multiple admits to [facility] [place] [facility] [place], 1 admit last year, denies prior psych admits. History of Inpatient Treatment: Yes Guns or firearms in home: No Social History Hx Alcohol Use: No Hx Tobacco Use: Yes (PPD) Hx Substance Use: No Substance Use Type: Alcohol, Marijuana, Benzos (Valium,Xanax) Hx of Substance Use Treatment: Yes Allergies-Medications (Allergen,Severity, Reaction): Coded Allergies: No Known Allergies (Verified , 06/17/16) Reported Meds & Prescriptions Reported Meds & Active Scripts Active Effexor XR 24 HR (Venlafaxine HCl) 150 Mg Cap 150 Mg PO DAILY Propranolol (Propranolol HCl) 10 Mg Tab 10 Mg PO Q8HR Benztropine (Benztropine Mesylate) 1 Mg Tab 1 Mg PO Q12HR Abilify (Aripiprazole) 15 Mg Tab 15 Mg PO HS Reported Risperidone 3 Mg Tab 3 Mg PO BID Trazodone (Trazodone HCl) 50 Mg Tab 400 Mg PO HS Review of Systems Except as stated in HPI: all other systems reviewed are Neg Exam Alert: Yes [place]: Person, Place, Date, Situation Mood: Calm Affect: Restricted Speech: Clear, Logical Eye Contact: Normal Memory Intact: Immediate, Recent, Remote Hallucinations: Auditory Delusions: Yes Delusion Type: Paranoid Insight/Judgement Adequate at this time. MDM Medical Decision Making Medical Record Reviewed: Yes Assessment/Plan Patient will continue to be treated by this physician on an emergency basis and less he is stable enough to make outpatient appointments. We will try to avoid repeated hospitalizations in the future as they only provide a environment to change medicines. This can be done in the emergency department as necessary. This physician will continue to follow the patient. Orders ^ Other Nursing Orders (07/28/16 15:22) Clonazepam (Klonopin) (07/28/16 21:00) Diet Regular Basic (07/28/16 Dinner) Diet Regular Basic (07/29/16 Breakfast) Diet Regular Basic (07/29/16 Lunch) Diet Regular Basic (07/29/16 Dinner) Results Vital Signs Date Time Temp Pulse Resp B/P Pulse Ox O2 Delivery O2 Flow Rate FiO2 07/29/16 14:14 93 18 137/85 95 Room Air 07/29/16 10:47 92 18 103/55 Room Air 07/29/16 06:13 71 19 129/77 95 Room Air 07/29/16 02:24 79 19 137/85 98 Room Air 07/28/16 22:00 84 19 136/80 98 Room Air 07/28/16 14:56 86 18 137/77 95 Room Air Diagnosis Primary Impression: Schizophrenia, paranoid, chronic with acute exacerbation Condition: Stable Clayton Nath MD Jul 29, 2016 14:28
[2016-07-29] MEDS ORDERED: CLON1 PO (14:29)
[2016-07-29] MEDS ORDERED: ARIPIPRAZOLE 400 MG IM (16:15)
[2016-07-30 02:31] VITALS: BP 109/56; PULSE 82; RESP 18; O2SAT 97
[2016-07-30 06:23] VITALS: BP 119/76; PULSE 83; RESP 18; O2SAT 97
[2016-07-30] MEDS: clonazePAM 1 MG TAB PO SCH ×2 (09:07→21:00)
[2016-07-30 10:30] VITALS: BP 111/68; PULSE 97; RESP 18
[2016-07-30 13:22] VITALS: BP 130/75; PULSE 86; RESP 18; O2SAT 96
[2016-07-30] MEDS ORDERED: BENZTROPINE MESYLATE 1 MG TAB PO ONE (14:45)
[2016-07-30 17:35] VITALS: BP 122/58; PULSE 92; RESP 18
[2016-07-30 22:00] VITALS: BP 127/72; PULSE 81; RESP 20
[2016-07-31 02:24] VITALS: BP 118/75; PULSE 74; RESP 18; O2SAT 97
[2016-07-31] MEDS: clonazePAM 1 MG TAB PO SCH ×2 (09:02→20:52)
[2016-07-31 10:08] VITALS: BP 124/74; PULSE 92; RESP 18
[2016-07-31 14:00] VITALS: BP 104/57; PULSE 79; RESP 18
[2016-07-31 18:00] VITALS: BP 129/73; PULSE 86; RESP 18
[2016-07-31 22:00] VITALS: BP_DIAS 70; PULSE 70; RESP 18
[2016-08-01 01:50] VITALS: BP 128/55; PULSE 75; RESP 18
[2016-08-01 06:03] VITALS: BP 115/74; PULSE 79; RESP 18
[2016-08-01] MEDS ORDERED: ARIPiprazole 15 MG TAB PO ONE (09:00)
[2016-08-01] MEDS: clonazePAM 1 MG TAB PO SCH (09:00)
[2016-08-01] MEDS ORDERED: risperiDONE 3 MG TAB PO SCH (09:00)
[2016-08-01] MEDS ORDERED: VENLAFAXINE HCL XR 75 MG CAP PO ONE (09:00)
[2016-08-01] MEDS ORDERED: ARIP400I IM (09:00)
[2016-08-01] MEDS ORDERED: BENZTROPINE MESYLATE 1 MG TAB PO ONE (10:00)
[2016-08-01] MEDS ORDERED: PROPRANOLOL HCL 10 MG TAB PO ONE (10:00)
[2016-08-01 11:08] VITALS: BP 121/62; PULSE 82; RESP 18; O2SAT 94
[2016-08-03] MEDS ORDERED: CLON1 PO (10:04)
== END 2016-08-01 15:50 | disposition home or self-care (01) ==
LOC: NEPC 07:59 → NEPJ 08-01 15:50
DX: F20.0 Paranoid schizophrenia (principal); F17.210 Nicotine dependence, cigarettes, uncomplicated
CPT/HCPCS: 80053; 80307; 85025; 99284

== ENCOUNTER 2016-08-31 12:01 | Emergency (ER) | payer MEDICAID ==
[~2016-08-31] VITALS: Ht 177.8 cm; Wt 92.0 kg
[~2016-08-31 12:01] MED LIST changes: +ARIP400I IM; -BACT800T5 PO; +CLON1 PO; -RISP3 PO; +RISP3TAB2 PO; -TRAZ100T4 PO; -TRAZ300T2 PO; +TRAZ50TA12 PO
[2016-08-31 12:03] VITALS: BP 128/69; PULSE 98; RESP 20; TEMP 99.3; O2SAT 98
--- NOTE | 2016-08-31 12:18 | PD ---
Physical Exam Time Seen by Provider: 12:17 Narrative Pt presents to the ED for medication refill of Clonazepam. States does not have a PCP. VSS. Awaiting bed placement. Data Data Last Documented VS Vital Signs Date Time Temp Pulse Resp B/P Pulse Ox O2 Delivery O2 Flow Rate FiO2 08/31/16 12:03 99.3 98 20 128/69 98 Room Air MDM Supervised Visit with ROSSY: Xiomy Braden Aug 31, 2016 12:18
[2016-08-31] MEDS ORDERED: CLON1 PO (12:59)
--- NOTE | 2016-08-31 13:00 | PD ---
HPI . Visit for medication refill Chief Complaint: Medication Refill Request Time Seen by Provider: 12:46 Travel History International Travel<30 days: No Contact w/Intl Traveler<30days: No Traveled to known affect area: No History of Present Illness HPI Patient presents requesting a refill of Klonopin. Patient reports that he was an inpatient here in the psychiatric unit about a month ago with a prescription for Klonopin. He states that he has not yet been able to establish himself with an outpatient doctor who can continue the Klonopin. He states that he has all of his other medications. He states that he gets them from [facility]. The patient has 1 more dose of Klonopin left. He is denying any psychiatric symptoms today. PFSH Past Medical History Anxiety: Yes Depression: Yes Heart Rhythm Problems: No Cardiac Catheterization: No High Cholesterol: No Congestive Heart Failure: No Diabetes: No Diminished Hearing: No Endocrine: No Gastrointestinal Disorders: No Genitourinary: No Heparin Induced Thrombocytopen: No Hypertension: No Immune Disorder: No Implanted Vascular Access Dvce: No Musculoskeletal: No Neurologic: No Psychiatric: Yes (SCHIZOPHRENIA) Reproductive: No Respiratory: No Immunizations Current: Yes Myocardial Infarction: No Schizophrenia: Yes Seizures: No Past Surgical History Abdominal Surgery: No Cardiac Surgery: No Coronary Artery Bypass Graft: No Ear Surgery: No Endocrine Surgery: No Eye Surgery: No Genitourinary Surgery: No Neurologic Surgery: No Oral Surgery: Yes (TONSILECTOMY) Tonsillectomy: Yes Other Surgery: No Social History Alcohol Use: No Tobacco Use: Yes (PPD) Substance Use: No Allergies-Medications (Allergen,Severity, Reaction): Coded Allergies: No Known Allergies (Verified , 06/17/16) Reported Meds & Prescriptions Reported Meds & Active Scripts Active Klonopin (Clonazepam) 1 Mg Tab 1 Mg PO BID Abilify Maintena ER Inj (Aripiprazole) 400 Mg Susp 400 Mg IM Q28D Klonopin (Clonazepam) 1 Mg Tab 1 Mg PO Q12HR Effexor XR 24 HR (Venlafaxine HCl) 150 Mg Cap 150 Mg PO DAILY Propranolol (Propranolol HCl) 10 Mg Tab 10 Mg PO Q8HR Benztropine (Benztropine Mesylate) 1 Mg Tab 1 Mg PO Q12HR Abilify (Aripiprazole) 15 Mg Tab 15 Mg PO HS Reported Risperidone 3 Mg Tab 3 Mg PO BID Trazodone (Trazodone HCl) 50 Mg Tab 400 Mg PO HS Review of Systems Except as stated in HPI: all other systems reviewed are Neg Physical Exam Narrative GENERAL: Awake and alert and in no acute distress. SKIN: Warm and dry. HEAD: Atraumatic. Normocephalic. EYES: Pupils equal and round. NECK: Trachea midline. CARDIOVASCULAR: Regular rate and rhythm. RESPIRATORY: No accessory muscle use. MUSCULOSKELETAL: No obvious deformities. No edema. NEUROLOGICAL: Awake and alert. No obvious cranial nerve deficits. Motor grossly within normal limits. Normal speech. PSYCHIATRIC: Appropriate mood and affect; insight and judgment normal. Data Data Last Documented VS Vital Signs Date Time Temp Pulse Resp B/P Pulse Ox O2 Delivery O2 Flow Rate FiO2 08/31/16 12:03 99.3 98 20 128/69 98 Room Air MDM Medical Decision Making Medical Screen Exam Complete: Yes Emergency Medical Condition: Yes Medical Record Reviewed: Yes (this patient was indeed admitted here for schizophrenia recently. He was discharged on Klonopin. I will give him 1 refill.) Differential Diagnosis Differential diagnosis of psychosis includes but is not limited to schizophrenia , schizoaffective disorder, bipolar disorder, intoxication, substance abuse, dementia Narrative Course Patient presents requesting a medication refill. I will give him a refill of his Klonopin. Diagnosis Primary Impression: Medication refill Scripts Clonazepam (Klonopin)1 Mg Tab1 Mg PO BID #60 TAB Ref 0 Prov:Kaykay Joel MD 08/31/16 Disposition: 01 DISCHARGE HOME Condition: Stable Kaykay Joel MD Aug 31, 2016 12:59
[2016-08-31 13:09] VITALS: BP 124/65
== END 2016-08-31 13:12 | disposition home or self-care (01) ==
LOC: NEPD 12:01
DX: Z76.0 Encounter for issue of repeat prescription (principal); F20.9 Schizophrenia, unspecified
CPT/HCPCS: 99281